=== PATIENT | male | born 1985 | race Caucasian/White ===

== ENCOUNTER 2016-08-24 11:11 | Emergency (ER) | payer SELFPAY ==
--- NOTE | 2016-08-24 11:27 | ER Document Report ---
ED Medical Screen (RME) - General Stated Complaint: LEFT FOOT INJURY Time seen by provider: 11:25 Mode of Arrival: Ambulatory Information source: Patient Notes: 31-year-old male presents to ED for pain in his left foot after he and his maritza were building a porch the board got dropped on his foot yesterday. He states the board got dropped up close to the ankle. Patient is able to walk but has a limp. Refused Tylenol states he had some just before he came to the emergency room. I have greeted and performed a rapid initial assessment of this patient. A comprehensive ED assessment and evaluation of the patient, analysis of test results and completion of medical decision making process will be conducted by an additional ED providers. TRAVEL OUTSIDE OF THE [place] IN LAST 30 DAYS: No - Related Data Allergies/Adverse Reactions: No Known Allergies Allergy (Verified 08/24/16 11:25) Past Medical History Pulmonary Medical History: Reports: Hx Asthma, Hx Bronchitis, Hx COPD Neurological Medical History: Reports: Hx Migraine GI Medical History: Reports: Hx Gastroesophageal Reflux Disease, Hx Hiatal Hernia - hernia Musculoskeltal Medical History: Reports Hx Arthritis - Back, bigg knees Psychiatric Medical History: Reports: Hx Anxiety, Hx Depression Past Surgical History: Reports: Hx Abdominal Surgery - hernia, Hx Herniorrhaphy , Hx Inguinal Hernia - right - Immunizations Immunizations up to date: Yes Hx Diphtheria, Pertussis, Tetanus Vaccination: Yes - 2011 Physical Exam - Vital signs Vitals: Temp Pulse Resp BP Pulse Ox 98.1 F 86 16 133/76 H 99 08/24/16 11:16 08/24/16 11:16 08/24/16 11:16 08/24/16 11:16 08/24/16 11:16 Course - Vital Signs Vital signs: Temp Pulse Resp BP Pulse Ox 98.1 F 86 16 133/76 H 99 08/24/16 11:16 08/24/16 11:16 08/24/16 11:16 08/24/16 11:16 08/24/16 11:16
--- NOTE | 2016-08-24 11:43 | ER Document Report ---
HPI - HPI Patient complains to provider of: left foot pain Onset: Yesterday Onset/Duration: Sudden Quality of pain: Achy, Throbbing Severity: Severe Pain Level: 5 Context: Patient presents to the emergency department with complaints of left foot pain. Patient reports he was helping a friend of the porch yesterday and dropped a board on the foot. He reports since that time it's been hurting. Patient was wearing steel toed boots. Denies past medical history of injury to the foot. No other complaints such as fever vomiting diarrhea. Associated Symptoms: None Exacerbated by: Walking Relieved by: Denies Similar symptoms previously: No Recently seen / treated by doctor: No - REPRODUCTIVE Reproductive: DENIES: : - DERM Skin Color: Normal Past Medical History - General Information source: Patient - Social History Smoking Status: Current Every Day Smoker Cigarette use (# per day): Yes - pack per day Chew tobacco use (# tins/day): No Frequency of alcohol use: Occasional Drug Abuse: None Occupation: [employer] Family History: Reviewed & Not Pertinent Patient has suicidal ideation: No Patient has homicidal ideation: No Pulmonary Medical History: Reports: Hx Asthma, Hx Bronchitis, Hx COPD Neurological Medical History: Reports: Hx Migraine Renal/ Medical History: Denies: Hx Peritoneal Dialysis GI Medical History: Reports: Hx Gastroesophageal Reflux Disease, Hx Hiatal Hernia - hernia Musculoskeltal Medical History: Reports Hx Arthritis - Back, bigg knees Psychiatric Medical History: Reports: Hx Anxiety, Hx Depression Past Surgical History: Reports: Hx Abdominal Surgery - hernia, Hx Herniorrhaphy , Hx Inguinal Hernia - right - Immunizations Immunizations up to date: Yes Hx Diphtheria, Pertussis, Tetanus Vaccination: Yes - 2011 [facility] [employer] [facility] Provider Document - CONSTITUTIONAL Agree With Documented VS: Yes Exam Limitations: No Limitations General Appearance: WD/WN, Mild Distress - Winces when dorsal foot palpated - INFECTION CONTROL TRAVEL OUTSIDE OF THE [place] 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 Patient instructed on Motrin and rest elevate the foot. He was also instructed to follow up with orthopedics for continued pain. He was instructed on signs and symptoms of infection return to ED for concerns. - Vital Signs Vital signs: Temp Pulse Resp BP Pulse Ox 98.1 F 86 16 133/76 H 99 08/24/16 11:16 08/24/16 11:16 08/24/16 11:16 08/24/16 11:16 08/24/16 11:16 - Diagnostic Test Radiology reviewed: Image reviewed, Reports reviewed - IMPRESSION: NEGATIVE STUDY OF THE LEFT FOOT. NO RADIOGRAPHIC EVIDENCE OF ACUTE INJURY. IMPRESSION: NEGATIVE STUDY OF THE LEFT ANKLE. NO RADIOGRAPHIC EVIDENCE OF ACUTE INJURY Discharge - Discharge Clinical Impression: left foot injury, Elevated blood pressure reading Condition: Stable Disposition: HOME, SELF-CARE Instructions: Ice & Elevation ([facility]), Ibuprofen (General) ([facility]) Additional Instructions: *You have been evaluated for left foot injury, elevated blood pressure reading *Rest/Ice/Elevate the foot *Follow up with orthopedics for continued pain-call for an appointment *Take medication as prescribed *Monitor your blood pressure. Your blood pressure was elevated today. This may be because you were anxious, in pain or because you need medication. It is important to follow up with your primary care provider for full evaluation. *Return to ED for worsening condition, changes, needs Prescriptions: Ibuprofen [Motrin 800 mg Tablet] 800 mg PO TID #30 tablet Forms: Elevated Blood Pressure, Return to Work
[2016-08-24 12:33] VITALS: BP 152/89
== END 2016-08-24 12:33 | disposition home or self-care (01) ==
LOC: ER 11:11
DX: S99.922A Unspecified injury of left foot, initial encounter (principal); R03.0 Elevated blood-pressure reading, without diagnosis of hypertension; F17.210 Nicotine dependence, cigarettes, uncomplicated; W20.8XXA Other cause of strike by thrown, projected or falling object, initial encounter; Y93.H3 Activity, building and construction; Y92.008 Other place in unspecified non-institutional (private) residence as the place of occurrence of the external cause
CPT/HCPCS: 99283

== ENCOUNTER 2018-06-25 14:48 | Inpatient (IN) | payer SELFPAY ==
[2018-06-25] MEDS ORDERED: HYDROXYZINE PAMOATE 50 MG CAPSULE PO ONE (15:13)
--- NOTE | 2018-06-25 15:17 | ER Document Report ---
ED Medical Screen (RME) - General Chief Complaint: Seizure Stated Complaint: POSSIBLE SEIZURE Time Seen by Provider: 06/25/18 15:12 Notes: Patient is in police custody, in handcuffs, having been arrested about 130 today. Patient says that he had a seizure just before he was arrested. He says that he has a history of seizures recently, usually when his blood sugar drops too low, but also whenever he stops drinking alcohol. He says his last alcohol was 2 days ago, Thursday morning,. He has been feeling somewhat dizzy and is jittery and twitchy. Complaining of leg cramps bilaterally. Has some nausea yesterday. Unaware of any fevers. Is able to ambulate. Patient extremely twitchy and jittery and anxious, but stays awake throughout the entire interview. TRAVEL OUTSIDE OF THE [place] IN LAST 30 DAYS: No - Related Data Allergies/Adverse Reactions: No Known Allergies Allergy (Verified 06/25/18 14:51) Past Medical History - Social History Frequency of alcohol use: Heavy Pulmonary Medical History: Reports: Hx Asthma, Hx Bronchitis, Hx COPD Neurological Medical History: Reports: Hx Migraine Renal/ Medical History: Denies: Hx Peritoneal Dialysis GI Medical History: Reports: Hx Gastroesophageal Reflux Disease, Hx Hiatal Hernia - hernia Musculoskeltal Medical History: Reports Hx Arthritis - Back, bigg knees Psychiatric Medical History: Reports: Hx Anxiety, Hx Depression Past Surgical History: Reports: Hx Abdominal Surgery - hernia, Hx Herniorrhaphy, Hx Inguinal Hernia - right - Immunizations Immunizations up to date: Yes Hx Diphtheria, Pertussis, Tetanus Vaccination: Yes - 2011 Physical Exam - Vital signs Vitals: Temp Pulse Resp BP Pulse Ox 97.9 F 77 18 132/121 H 92 06/25/18 14:52 06/25/18 14:52 06/25/18 14:52 06/25/18 14:52 06/25/18 14:52 Course - Vital Signs Vital signs: Temp Pulse Resp BP Pulse Ox 97.9 F 77 18 132/121 H 92 06/25/18 14:52 06/25/18 14:52 06/25/18 14:52 06/25/18 14:52 06/25/18 14:52
[2018-06-25] MEDS ORDERED: LORAZEPAM INJ 2 MG/1 ML VIAL IV ONE ×3 (15:29→20:37)
[2018-06-25] MEDS ORDERED: LORAZEPAM INJ 2 MG/1 ML VIAL ONE (15:29)
[2018-06-25 15:49] LABS: ABSOLUTE BASOPHILS # (AUTO) 0.1 10^3/uL (0.0-0.2); ABSOLUTE LYMPHOCYTES (AUTO) 1.4 10^3/uL (0.5-4.7); ABSOLUTE MONOCYTES (AUTO) 1.4 10^3/uL (0.1-1.4); ABSOLUTE NEUT (AUTO) 15.8 10^3/uL (1.7-8.2); BASOPHILS % (AUTO) 0.5 % (0-2); EOSINOPHILS % (AUTO) 0.2 % (0-6); HEMATOCRIT 42.1 % (37.9-51.0); HEMOGLOBIN 14.7 g/dL (13.5-17.0); LYMPHOCYTES % (AUTO) 7.4 % (13-45); MEAN CORPUSCULAR HEMOGLOBIN 31.1 pg (27.0-33.4); MEAN CORPUSCULAR HGB CONC 34.8 g/dL (32.0-36.0); MEAN CORPUSCULAR VOLUME 89 fl (80-97); MONOCYTES % (AUTO) 7.6 % (3-13); PLATELET COUNT 342 10^3/uL (150-450); RED BLOOD COUNT 4.71 10^6/uL (4.35-5.55); RED CELL DISTRIBUTION WIDTH 13.4 % (11.5-14.0); SEGMENTED NEUTROPHILS % (AUTO) 84.3 % (42-78); TOTAL CELLS COUNTED % (AUTO) 100 %; WHITE BLOOD COUNT 18.7 10^3/uL (4.0-10.5)
[2018-06-25 16:05] LABS: ALANINE AMINOTRANSFERASE 80 U/L (21-72); ALBUMIN 5.2 g/dL (3.5-5.0); ALKALINE PHOSPHATASE 85 U/L (38-126); ANION GAP 15 (5-19); ASPARTATE AMINO TRANSFERASE 73 U/L (17-59); BILIRUBIN,DIRECT 0.2 mg/dL (0.0-0.4); BILIRUBIN,TOTAL 1.3 mg/dL (0.2-1.3); BLOOD UREA NITROGEN 14 mg/dL (7-20); CALCIUM 10.9 mg/dL (8.4-10.2); CARBON DIOXIDE 19 mmol/L (22-30); CHLORIDE 93 mmol/L (98-107); GLUCOSE 116 mg/dL (75-110); POTASSIUM 5.1 mmol/L (3.6-5.0); SODIUM 126.9 mmol/L (137-145)
[2018-06-25 16:06] LABS: ACETAMINOPHEN < 10 ug/mL (10-30); ALCOHOL < 10 mg/dL (NONE DETECTED)
[2018-06-25] MEDS ORDERED: NORMAL SALINE 1000 ML 1,000 ML IV ONE (16:26)
--- NOTE | 2018-06-25 16:28 | ER Document Report ---
Addendum entered and electronically signed by TALHA PORTILLO NP 06/26/18 09:07: Discharge - Discharge Clinical Impression: Seizure, Hyponatremia Alcohol withdrawal Qualifiers: Complication of substance-induced condition: with unspecified complication Qualified Code(s): F10.239 - Alcohol dependence with withdrawal, unspecified Condition: Fair Disposition: ADMITTED INPATIENT Original Note: ED Seizure - General TRAVEL OUTSIDE OF THE [place] IN LAST 30 DAYS: No - HPI Patient complains to provider of: History of seizures Quality of pain: Throbbing - left ankle Severity: Moderate Pain Level: 3 Continued on arrival to ED: No Can details of seizure be obtained/verified: Yes Episode witnessed (by whom): Yes - officer at the half-way Current seizure medications: Other - none Preceding symptoms/context: Recent alcohol intake Character of seizure: Partial loss/conscious, Generalized shaking Post-ictal symptoms: Confusion, Speech difficulty Injuries: None Treatment DIRECTOR HOME HEALTH: At[facility] D-stick result: 138 Associated Symptoms: Other - The officer at the half-way stated he was beating his head on the ground during his seizure in the half-way <TALHA PORTILLO - Last Filed: 06/25/18 19:23> <RICH YEPEZ - Last Filed: 06/26/18 04:46> - General Chief Complaint: Seizure Stated Complaint: POSSIBLE SEIZURE Time Seen by Provider: 06/25/18 15:12 Notes: 33-year-old male presented to ED for seizure this afternoon. Patient is now in police To the after being arrested about 1:30 PM. The police at the bedside states that the police in the half-way witnessed a seizures. I spoke with 1 of the offices in the half-way who stated that he saw the patient in full body seizures tremors all over back and his head on the ground and incoherent. He states it was at least 10 minutes before they could get him to do anything on his own. He stated even after this time he still not was not coherent. Patient was seen in pit by Dr. Rollins and was given Ativan IV 1 mg, hydroxyzine p.o. 50 mg and labs and CT were ordered. Patient stated that he has had seizures in the past from low blood sugars. He states he drinks 4-5 or more beer a day and smokes a pack a day. He states he has not had any beer in 2 days. Patient is having tremors at this time and unable to stay still. He is in handcuffs with a commissioned police officer at the bedside. (TALHA PORTILLO) - Related Data Allergies/Adverse Reactions: No Known Allergies Allergy (Verified 06/25/18 14:51) Past Medical History - General Information source: Patient - Social History Smoking Status: Current Every Day Smoker - ppd Cigarette use (# per day): Yes - ppd Chew tobacco use (# tins/day): No Smoking Education Provided: Yes - 4 min Frequency of alcohol use: Heavy - For more beer a day Drug Abuse: None Family History: Reviewed & Not Pertinent Patient has suicidal ideation: No Patient has homicidal ideation: No - Past Medical History Cardiac Medical History: Reports: None Pulmonary Medical History: Reports: Hx Asthma, Hx Bronchitis, Hx COPD EENT Medical History: Reports: None Neurological Medical History: Reports: Hx Migraine Endocrine Medical History: Reports: None Renal/ Medical History: Reports: None Malignancy Medical History: Reports None GI Medical History: Reports: Hx Gastroesophageal Reflux Disease, Hx Hiatal Hernia - hernia Musculoskeletal Medical History: Reports Hx Arthritis - Back, bigg knees, Reports Hx Musculoskeletal Trauma Skin Medical History: Reports None Psychiatric Medical History: Reports: Hx Anxiety, Hx Depression Traumatic Medical History: Reports: None Infectious Medical History: Reports: None Past Surgical History: Reports: Hx Abdominal Surgery - hernia, Hx Herniorrhaphy, Hx Inguinal Hernia - right - Immunizations Immunizations up to date: Yes Hx Diphtheria, Pertussis, Tetanus Vaccination: Yes - 2011 <TALHA PORTILLO - Last Filed: 06/25/18 19:23> Review of Systems - Review of Systems Constitutional: No symptoms reported EENT: Sinus discharge Cardiovascular: No symptoms reported, Heart racing, Dizziness, Lightheaded Respiratory: No symptoms reported Gastrointestinal: No symptoms reported Genitourinary: No symptoms reported Musculoskeletal: Joint pain - Left ankle bruising swelling pain, Joint swelling, Other - Muscle tremors Skin: Other - Bruising and swelling to left ankle Neurological/Psychological: Weakness, Tremor -: Yes All other systems reviewed and negative <TALHA PORTILLO - Last Filed: 06/25/18 19:23> Physical Exam - Vital signs Interpretation: Normal - General General appearance: Appears well, Alert - HEENT Head: Normocephalic, Atraumatic Eyes: Normal Pupils: PERRL - Respiratory Respiratory status: No respiratory distress Chest status: Nontender Breath sounds: Normal Chest palpation: Normal - Cardiovascular Rhythm: Regular Heart sounds: Normal auscultation Murmur: No - Abdominal Inspection: Normal Distension: No distension Bowel sounds: Normal Tenderness: Nontender Organomegaly: No organomegaly - Back Back: Normal, Nontender - Extremities General upper extremity: Normal inspection, Nontender, Normal color, Normal ROM, Normal temperature, Other - tremors General lower extremity: Other - tremors. No: Lowell's sign Ankle: Tender, Ecchymosis, Edema. No: Unable to bear weight - Painful ambulation Foot: Tender, Ecchymosis - Neurological Neuro grossly intact: Yes Cognition: Normal Orientation: AAOx4 [place] Coma Scale Eye Opening: Spontaneous [place] Coma Scale Verbal: Oriented Sharla Coma Scale Motor: Obeys Commands [place] Coma Scale Total: 15 Speech: Normal Cranial nerves: Other - tremors Motor strength normal: LUE, RUE, RLE Additional motor exam normals: Involuntary movements, Other - tremors Sensory: Normal - Psychological Associated symptoms: Normal affect, Normal mood - Skin Skin Temperature: Warm Skin Moisture: Dry Skin Color: Normal <TALHA PORTILLO - Last Filed: 06/25/18 19:23> - Vital signs Vitals: Temp Pulse Resp BP Pulse Ox 97.9 F 77 18 132/121 H 92 06/25/18 14:52 06/25/18 14:52 06/25/18 14:52 06/25/18 14:52 06/25/18 14:52 Course - Laboratory Result Diagrams: 06/25/18 15:20 06/25/18 15:20 <TALHA PORTILLO - Last Filed: 06/25/18 19:23> - Laboratory Result Diagrams: 06/25/18 15:20 06/25/18 15:20 <RICH YEPEZ - Last Filed: 06/26/18 04:46> - Re-evaluation Re-evalutation: 06/25/18 19:[address] Marie earlier concerning the hyponatremia, hypokalemia, alcohol withdrawal tremors and assessment. Dr. Marie recommended normal saline at 125 cc an hour and to medicate the patient with another milligram of Ativan IV. He stated that he would need to be admitted as soon as all the lab results are back . CT is negative, x-ray of the foot is negative. Have discussed patient with Rich Stearns. SHAUN. He will be taking over care of the patient into the urine drug screen is returned. (TALHA PORTILLO) 06/25/18 20:[address] Bradford, patient will be accepted to the IMCU. Patient did become agitated again, started falling out of the bed, I was at bedside and assisted him back into the bed, he was given additional Ativan, thiamine, folic acid. (RICH YEPEZ) - Vital Signs Vital signs: Temp Pulse Resp BP Pulse Ox 97.9 F 77 17 119/80 100 06/25/18 14:52 06/25/18 14:52 06/25/18 23:01 06/25/18 23:01 06/25/18 23:01 - Laboratory Laboratory results interpreted by me: 06/25/18 06/25/18 06/25/18 15:08 15:20 15:20 WBC 18.7 H Seg Neutrophils % 84.3 H Lymphocytes % 7.4 L Absolute Neutrophils 15.8 H Sodium 126.9 L Potassium 5.1 H Chloride 93 L Carbon Dioxide 19 L Glucose 116 H POC Glucose 138 H Calcium 10.9 H AST 73 H ALT 80 H Albumin 5.2 H Urine Ketones Urine Blood Acetaminophen < 10 L 06/25/18 17:50 WBC Seg Neutrophils % Lymphocytes % Absolute Neutrophils Sodium Potassium Chloride Carbon Dioxide Glucose POC Glucose Calcium AST ALT Albumin Urine Ketones TRACE H Urine Blood SMALL H Acetaminophen Discharge <TALHA PORTILLO - Last Filed: 06/25/18 19:23> - Discharge Admitting Provider: Hospitalist Unit Admitted: [facility] <RICH YEPEZ - Last Filed: 06/26/18 04:46> - Discharge Clinical Impression: Seizure, Hyponatremia Alcohol withdrawal Qualifiers: Complication of substance-induced condition: with unspecified complication Qualified Code(s): F10.239 - Alcohol dependence with withdrawal, unspecified Condition: Fair Disposition: ADMITTED INPATIENT
--- NOTE | 2018-06-25 16:44 | RADIOLOGY REPORT (SQ) ---
EXAM DESCRIPTION: CT HEAD WITHOUT COMPLETED DATE/TIME: 06/25/2018 4:36 pm REASON FOR STUDY: ? Seizures COMPARISON: None. TECHNIQUE: Axial images acquired through the brain without intravenous contrast. Images reviewed wi th bone, brain and subdural windows. Images stored on PACS. All CT scanners at this facility use dose modulation, iterative reconstruction, and/or weight based d osing when appropriate to reduce radiation dose to as low as reasonably achievable (ALARA). [facility]: Dose Right [facility]: CareDose [facility]: Dose Right [facility]: Teradose 4D [facility]: ClusterSeven RADIATION DOSE: CT Rad equipment meets quality standard of care and radiation dose reduction techniq ues were employed. CTDIvol: 55.2 mGy. DLP: 1084 mGy-cm. mGy. LIMITATIONS: None. FINDINGS: VENTRICLES: Normal size and contour. CEREBRUM: No masses. No hemorrhage. No midline shift. No evidence for acute infarction. Normal gra y/white matter differentiation. No areas of low density in the white matter. CEREBELLUM: No masses. No hemorrhage. No alteration of density. No evidence for acute infarction. EXTRAAXIAL SPACES: No fluid collections. No masses. ORBITS AND GLOBE: No intra- or extraconal masses. Normal contour of globe without masses. CALVARIUM: No fracture. PARANASAL SINUSES: No fluid or mucosal thickening. SOFT TISSUES: No mass or hematoma. OTHER: No other significant finding. IMPRESSION: NORMAL BRAIN CT WITHOUT CONTRAST. EVIDENCE OF ACUTE STROKE: NO. COMMENT: Quality ID # [id number]: Final reports with documentation of one or more dose reduction techniques (e.g., Automated exposure control, adjustment of the mA and/or kV according to patient size, use of iterative reconstruction technique) TECHNICAL DOCUMENTATION: JOB ID: [id number] [employer]- All Rights Reserved Reading location - IP/workstation name: [email or web address]
--- NOTE | 2018-06-25 17:32 | RADIOLOGY REPORT (SQ) ---
EXAM DESCRIPTION: ANKLE LEFT COMPLETE COMPLETED DATE/TIME: 06/25/2018 5:12 pm REASON FOR STUDY: pain swelling COMPARISON: None. NUMBER OF VIEWS: Three views. TECHNIQUE: AP, lateral, and oblique radiographic images acquired of the left ankle. LIMITATIONS: None. FINDINGS: MINERALIZATION: Normal. BONES: No acute fracture or dislocation. No worrisome bone lesions. JOINTS: No effusions. SOFT TISSUES: No soft tissue swelling. No foreign body. OTHER: No other significant finding. IMPRESSION: NEGATIVE STUDY OF THE LEFT ANKLE. NO RADIOGRAPHIC EVIDENCE OF ACUTE INJURY. TECHNICAL DOCUMENTATION: JOB ID: [id number] [employer]- All Rights Reserved Reading location - IP/workstation name: [email or web address]
[2018-06-25 18:38] LABS: APPEARANCE,URINE CLEAR; BILIRUBIN,URINE NEGATIVE (NEGATIVE); COLOR,URINE YELLOW; GLUCOSE, URINE NEGATIVE (NEGATIVE); KETONES,URINE TRACE mg/dL (NEGATIVE); LEUKOCYTE ESTERASE,URINE NEGATIVE (NEGATIVE); NITRITE,URINE NEGATIVE (NEGATIVE); PROTEIN,URINE NEGATIVE (NEGATIVE); URINE SPECIFIC GRAVITY 1.005; UROBILINOGEN,URINE NEGATIVE mg/dL (<2.0)
[2018-06-25 18:52] LABS: URINE BARBITURATES SCREEN NEGATIVE; URINE BENZODIAZEPINES SCREEN NEGATIVE; URINE COCAINE SCREEN NEGATIVE; URINE MARIJUANA (THC) SCREEN NEGATIVE; URINE METHADONE SCREEN NEGATIVE; URINE PHENCYCLIDINE SCREEN NEGATIVE
[2018-06-25] MEDS ORDERED: THIAMINE HCL 100 MG, FOLIC ACID 1 MG in NORMAL SALINE 250 ML IV ONE (20:37)
[2018-06-25] MEDS ORDERED: THIAMINE HCL INJ 200 MG/2 ML VIAL ONE (21:06)
[2018-06-25] MEDS ORDERED: FOLIC ACID INJ 5 MG/1 ML 10 ML VIAL ONE (21:07)
[2018-06-25] MEDS ORDERED: ONDANSETRON HCL INJ/PF 4 MG/2 ML SDV IV PRN (21:32)
[2018-06-25] MEDS ORDERED: ONDANSETRON 4 MG TAB.RAPDIS PO PRN (21:32)
[2018-06-25] MEDS ORDERED: MAGNESIUM HYDROXIDE SUSP 30 ML UDCUP PO PRN (21:32)
[2018-06-25] MEDS ORDERED: MAG HYDROX/AL HYDROX/SIMETH SUSP 30 ML UDCUP PO PRN (21:32)
[2018-06-25] MEDS ORDERED: ACETAMINOPHEN 325 MG TABLET PO PRN (21:37)
[2018-06-25] MEDS ORDERED: ATENOLOL 50 MG TABLET PO ONE (22:30)
[2018-06-25] MEDS: DIAZEPAM INJ 10 MG/2 ML DISP.SYRIN IV PRN (22:38)
[2018-06-25] MEDS: FAMOTIDINE 20 MG TABLET PO SCH (22:58)
[2018-06-25] MEDS: HEPARIN SOD (PORCINE) 5,000 UNIT/ML 1 ML SYRINGE SUBCUT SCH (23:00)
[2018-06-25] MEDS: DIAZEPAM 5 MG TABLET PO SCH (23:05)
[2018-06-26] MEDS: DIAZEPAM INJ 10 MG/2 ML DISP.SYRIN IV PRN (00:41)
--- NOTE | 2018-06-26 01:27 | PDOC H&P ---
History of Present Illness Admission Date/PCP: 06/25/18 20:52 Patient complains of: Acute alcohol withdrawal with seizure activity History of Present Illness: ANGIE GUTIÉRREZ is a 33 year old male who was arrested and incarcerated at approximately 1:30 PM 06/25/2018 with his last drink being sometime on 06/23/2018. Sometime later in the afternoon he began having, what was described by the [employer]'s deputy, seizure activity (shaking all over and banging his head on the floor) lasting several minutes followed by a postictal state of stupor, confusion and slurred speech lasting for 15-30 minutes. In the emergency room he admits having seizures in the recent past when he stops drinking alcohol for any length of time or when his blood sugar gets too low. He admits feeling shaky and nervous but denies experiencing hallucinations or paresthesias. He did complain of pain in his left ankle which he thinks he injured while he was having his seizure. Initially in the emergency room and at the time of my exam quite sometime later, he was noted to be very tremulous, slightly agitated, fidgety and irritable, therefore he was given several doses of lorazepam IV and hydroxyzine orally by the emergency room physician and he was treated with oral and IV Valium after I assumed care. A noncontrast CT of the head and a multiple view radiographic series of the left ankle were both negative for acute changes. Since patient is in custody of law enforcement he will be admitted for acute alcohol detoxification and control of his acute alcohol withdrawal syndrome with complications of seizures. Past Medical History Cardiac Medical History: Denies: Coronary Artery Disease, Hypertension Pulmonary Medical History: Reports: Asthma, Bronchitis, Chronic Obstructive Pulmonary Disease (COPD) EENT Medical History: Reports: None Neurological Medical History: Reports: Migraine, Seizures - With hypoglycemia and alcohol withdrawal Endocrine Medical History: Denies: Diabetes Mellitus Type 1, Diabetes Mellitus Type 2, Obesity Renal/ Medical History: Denies: Chronic Kidney Disease, Nephrolithiasis Malignancy Medical History: Reports: None GI Medical History: Reports: Gastroesophageal Reflux Disease, Hiatal Hernia - hernia Musculoskeltal Medical History: Reports: Arthritis - Back, bigg knees Denies: Gout Skin Medical History: Denies: Eczema, Psoriasis Psychiatric Medical History: Reports: Alcohol Dependency, Depression, Substance Abuse, Tobacco Dependency Traumatic Medical History: Reports: None Hematology: Denies: Anemia, Bleeding Tendencies Infectious Medical History: Reports: None Past Surgical History Past Surgical History: Reports: Herniorrhaphy - Right inguinal Social History Information Source: Patient Lives with: Alone Smoking Status: Current Every Day Smoker - ppd Frequency of Alcohol Use: Heavy Hx Recreational Drug Use: No Drugs: None Hx Prescription Drug Abuse: No - Advance Directive Resuscitation Status: Full Code Surrogate healthcare decision maker:: Mother Family History Family History: CAD, DM, Hypertension Parental Family History Reviewed: Yes Children Family History Reviewed: No Sibling(s) Family History Reviewed.: Yes Medication/Allergy Home Medications: No Home Medications 06/25/18 Allergies/Adverse Reactions: No Known Allergies Allergy (Verified 06/25/18 14:51) Review of Systems Constitutional: ABSENT: chills, fever(s) Eyes: ABSENT: visual disturbances, other - Ocular pain Ears: ABSENT: hearing changes, other - Ear pain Nose, Mouth, and Throat: ABSENT: mouth pain, sore throat Cardiovascular: ABSENT: chest pain, dyspnea on exertion, orthropnea, palpitations Respiratory: ABSENT: cough, dyspnea Gastrointestinal: PRESENT: nausea - Yesterday. ABSENT: abdominal pain, constipation, diarrhea, vomiting Genitourinary: ABSENT: dysuria, hematuria Musculoskeletal: PRESENT: other - Painful left ankle. ABSENT: deformity Integumentary: ABSENT: pruritus, rash Neurological: PRESENT: as per HPI, confusion, convulsions, dizziness, restless legs, tremor(s) Psychiatric: ABSENT: anxiety, depression, hallucinations Endocrine: ABSENT: cold intolerance, heat intolerance Hematologic/Lymphatic: ABSENT: easy bleeding, easy bruising Physical Exam Vital Signs: Temp Pulse Resp BP Pulse Ox 97.9 F 77 18 115/67 97 06/25/18 14:52 06/25/18 14:52 06/25/18 22:01 06/25/18 22:01 06/25/18 22:01 Intake & Output 06/23/18 06/24/18 06/25/18 23:59 23:59 23:59 Weight 54.8 kg General appearance: PRESENT: no acute distress, cooperative, other - Anxious and fidgety Head exam: PRESENT: atraumatic, normocephalic Eye exam: PRESENT: conjunctiva pink, EOMI. ABSENT: scleral icterus Ear exam: PRESENT: normal external ear exam. ABSENT: bleeding Mouth exam: PRESENT: dry mucosa, neck supple Neck exam: ABSENT: JVD, thyromegaly, tracheal deviation Respiratory exam: PRESENT: clear to auscultation bigg, symmetrical, unlabored Cardiovascular exam: PRESENT: RRR, tachycardia. ABSENT: clicks, gallop, rubs Pulses: PRESENT: normal radial pulses, normal dorsalis pedis pul Vascular exam: PRESENT: normal capillary refill. ABSENT: pallor GI/Abdominal exam: PRESENT: normal bowel sounds, soft Rectal exam: PRESENT: deferred Extremities exam: ABSENT: joint swelling, pedal edema Musculoskeletal exam: ABSENT: deformity, dislocation Neurological exam: PRESENT: alert, oriented to person, oriented to place, oriented to time, oriented to situation, CN II-XII grossly intact. ABSENT: motor sensory deficit Psychiatric exam: PRESENT: agitated, anxious, normal mood Focused psych exam: PRESENT: psychomotor agitation, restlessness Skin exam: PRESENT: dry, intact, warm. ABSENT: jaundice, rash, urticaria Results Laboratory Results: 06/25/18 15:20 06/25/18 15:20 06/25/18 06/25/18 06/25/18 15:20 15:20 17:50 WBC 18.7 H RBC 4.71 Hgb 14.7 Hct 42.1 MCV 89 MCH 31.1 MCHC 34.8 RDW 13.4 Plt Count 342 Seg Neutrophils % 84.3 H Lymphocytes % 7.4 L Monocytes % 7.6 Eosinophils % 0.2 Basophils % 0.5 Absolute Neutrophils 15.8 H Absolute Lymphocytes 1.4 Absolute Monocytes 1.4 Absolute Eosinophils 0.0 Absolute Basophils 0.1 Sodium 126.9 L Potassium 5.1 H Chloride 93 L Carbon Dioxide 19 L Anion Gap 15 BUN 14 Creatinine 0.88 Est GFR ( Amer) > 60 Est GFR (Non-Af Amer) > 60 Glucose 116 H Calcium 10.9 H Total Bilirubin 1.3 AST 73 H ALT 80 H Alkaline Phosphatase 85 Total Protein 8.0 Albumin 5.2 H Urine Color YELLOW Urine Appearance CLEAR Urine pH 6.0 Ur Specific [place] 1.005 Urine Protein NEGATIVE Urine Glucose (UA) NEGATIVE Urine Ketones TRACE H Urine Blood SMALL H Urine Nitrite NEGATIVE Ur Leukocyte Esterase NEGATIVE Urine WBC (Auto) 0 Urine RBC (Auto) 0 Impressions: Head CT 06/25/18 15:14 IMPRESSION: NORMAL BRAIN CT WITHOUT CONTRAST. EVIDENCE OF ACUTE STROKE: NO. Ankle X-Ray 06/25/18 16:37 IMPRESSION: NEGATIVE STUDY OF THE LEFT ANKLE. NO RADIOGRAPHIC EVIDENCE OF ACUTE INJURY. Assessment & Plan - Diagnosis (1) Alcohol withdrawal syndrome with complication Is this a current diagnosis for this admission?: Yes Plan: Patient has had a seizure witnessed by law enforcement officers prior to coming to the emergency room. He further admits a history of delirium tremens type symptoms with alcohol withdrawal in the past. He will therefore be initiated on a Valium regiment utilizing 10 mg Valium p.o. every 4 hours with Valium 10 mg IV every hour as needed severe agitation or seizure activity. (2) Hyperkalemia Is this a current diagnosis for this admission?: Yes Plan: Mild hyperkalemia is noted and will be observed on serial evaluations of the patient's metabolic profile. (3) Leukocytosis Qualifiers: Leukocytosis type: unspecified Qualified Code(s): D72.829 - Elevated white blood cell count, unspecified Is this a current diagnosis for this admission?: Yes Plan: Leukocytosis is noted in a postictal patient this will be observed with serial CBC evaluations. (4) Metabolic acidosis Is this a current diagnosis for this admission?: Yes Plan: Patient started to have metabolic acidosis which is consistent with his postictal and alcohol withdrawal state this will be observed with serial determinations of the patient's metabolic profile. (5) Hyponatremia Is this a current diagnosis for this admission?: Yes Plan: Patient is noted to be mildly hyponatremic this is most likely related to his metabolic acidosis and acute alcohol withdrawal state. This will be observed on an ongoing basis utilizing serial metabolic profile determinations. - Time Time Spent: 30 to 50 Minutes Critical Time spent with patient: Less than 15 minutes Smoking Cessation Education: 3 to 10 minutes Medications reviewed and adjusted accordingly: Yes Anticipated discharge: Home - Inpatient Certification Based on my medical assessment, after consideration of the patient's comorbidities, presenting symptoms, or acuity I expect that the services needed warrant INPATIENT care.: Yes I certify that my determination is in accordance with my understanding of Medicare's requirements for reasonable and necessary INPATIENT services [42 CFR 412.3e].: Yes Medical Necessity: Need Close Monitoring Due to Risk of Patient Decompensation, Need for Neurological Checks, Risk of Complication if Not Cared For in Hospital
[2018-06-26] MEDS: DIAZEPAM 5 MG TABLET PO SCH ×6 (02:49→22:42)
[2018-06-26] MEDS: HEPARIN SOD (PORCINE) 5,000 UNIT/ML 1 ML SYRINGE SUBCUT SCH ×3 (05:44→22:48)
[2018-06-26 07:08] LABS: HEMATOCRIT 39.6 % (37.9-51.0); HEMOGLOBIN 13.7 g/dL (13.5-17.0); MEAN CORPUSCULAR HEMOGLOBIN 31.5 pg (27.0-33.4); MEAN CORPUSCULAR HGB CONC 34.6 g/dL (32.0-36.0); MEAN CORPUSCULAR VOLUME 91 fl (80-97); PLATELET COUNT 295 10^3/uL (150-450); RED BLOOD COUNT 4.35 10^6/uL (4.35-5.55); RED CELL DISTRIBUTION WIDTH 13.8 % (11.5-14.0); WHITE BLOOD COUNT 7.6 10^3/uL (4.0-10.5)
[2018-06-26 07:38] LABS: ALANINE AMINOTRANSFERASE 72 U/L (21-72); ALBUMIN 3.9 g/dL (3.5-5.0); ALKALINE PHOSPHATASE 68 U/L (38-126); ANION GAP 9 (5-19); ASPARTATE AMINO TRANSFERASE 106 U/L (17-59); BILIRUBIN,DIRECT 0.3 mg/dL (0.0-0.4); BILIRUBIN,TOTAL 0.8 mg/dL (0.2-1.3); BLOOD UREA NITROGEN 12 mg/dL (7-20); CALCIUM 9.3 mg/dL (8.4-10.2); CARBON DIOXIDE 23 mmol/L (22-30); CHLORIDE 106 mmol/L (98-107); GLUCOSE 67 mg/dL (75-110); SODIUM 137.5 mmol/L (137-145); TOTAL PROTEIN 6.5 g/dL (6.3-8.2)
[2018-06-26 07:53] LABS: FREE T3 3.83 pg/mL (2.77-5.27); FREE T4 (FREE THYROXINE) 1.05 ng/dL (0.78-2.19)
[2018-06-26] MEDS ORDERED: DIAZEPAM INJ 10 MG/2 ML DISP.SYRIN IV PRN ×2 (08:01→16:09)
[2018-06-26 08:06] LABS: THYROID STIMULATING HORMONE 9.1 uIU/mL (0.47-4.68)
--- NOTE | 2018-06-26 08:13 | PDOC PROGRESS REPORT ---
Subjective Progress Note for:: 06/26/18 Subjective:: 06/26/[id number]-old with history of alcohol abuse admitted from the correction with a seizure activity. Admission alcohol level is less than 10 seizures was witnessed by the police officers and in the ER he was given several doses of IV lorazepam and hydroxyzine ,after he came to up to the floor no acute events. Afebrile. Patient able to communicate well with me. Reason For Visit: ALCOHOL WITHDRAWAL SYNDROME Physical Exam Vital Signs: Temp Pulse Resp BP Pulse Ox 97.4 F 90 20 104/59 L 100 06/26/18 02:57 06/26/18 02:57 06/26/18 02:57 06/26/18 02:57 06/26/18 02:57 Intake & Output 06/25/18 06/26/18 06/27/18 06:59 06:59 06:59 Intake Total 1251 Output Total 1000 Balance 251 Weight 57.6 kg General appearance: PRESENT: no acute distress Head exam: PRESENT: atraumatic Eye exam: PRESENT: PERRLA Mouth exam: PRESENT: moist Neck exam: ABSENT: carotid bruit, JVD, lymphadenopathy, thyromegaly Respiratory exam: PRESENT: clear to auscultation bigg. ABSENT: rales, rhonchi, w heezes Cardiovascular exam: PRESENT: RRR. ABSENT: diastolic murmur, rubs, systolic murmur Pulses: PRESENT: normal dorsalis pedis pul GI/Abdominal exam: PRESENT: normal bowel sounds, soft. ABSENT: distended, guarding, mass, organolmegaly, rebound, tenderness Neurological exam: PRESENT: alert, awake, oriented to person, oriented to place, oriented to time, oriented to situation, CN II-XII grossly intact. ABSENT: motor sensory deficit Psychiatric exam: PRESENT: appropriate affect, normal mood. ABSENT: homicidal ideation, suicidal ideation Results Laboratory Results: 06/26/18 06:12 06/26/18 06:12 06/25/18 06/25/18 06/25/18 15:20 15:20 17:50 WBC 18.7 H RBC 4.71 Hgb 14.7 Hct 42.1 MCV 89 MCH 31.1 MCHC 34.8 RDW 13.4 Plt Count 342 Seg Neutrophils % 84.3 H Lymphocytes % 7.4 L Monocytes % 7.6 Eosinophils % 0.2 Basophils % 0.5 Absolute Neutrophils 15.8 H Absolute Lymphocytes 1.4 Absolute Monocytes 1.4 Absolute Eosinophils 0.0 Absolute Basophils 0.1 Sodium 126.9 L Potassium 5.1 H Chloride 93 L Carbon Dioxide 19 L Anion Gap 15 BUN 14 Creatinine 0.88 Est GFR ( Amer) > 60 Est GFR (Non-Af Amer) > 60 Glucose 116 H Calcium 10.9 H Magnesium Total Bilirubin 1.3 AST 73 H ALT 80 H Alkaline Phosphatase 85 Total Protein 8.0 Albumin 5.2 H Urine Color YELLOW Urine Appearance CLEAR Urine pH 6.0 Ur Specific [place] 1.005 Urine Protein NEGATIVE Urine Glucose (UA) NEGATIVE Urine Ketones TRACE H Urine Blood SMALL H Urine Nitrite NEGATIVE Ur Leukocyte Esterase NEGATIVE Urine WBC (Auto) 0 Urine RBC (Auto) 0 06/26/18 06/26/18 06:12 06:12 WBC 7.6 RBC 4.35 Hgb 13.7 Hct 39.6 MCV 91 MCH 31.5 MCHC 34.6 RDW 13.8 Plt Count 295 Seg Neutrophils % Lymphocytes % Monocytes % Eosinophils % Basophils % Absolute Neutrophils Absolute Lymphocytes Absolute Monocytes Absolute Eosinophils Absolute Basophils Sodium 137.5 Potassium 4.0 D Chloride 106 Carbon Dioxide 23 Anion Gap 9 BUN 12 Creatinine 0.87 Est GFR ( Amer) > 60 Est GFR (Non-Af Amer) > 60 Glucose 67 L Calcium 9.3 Magnesium 2.3 Total Bilirubin 0.8 AST 106 H ALT 72 Alkaline Phosphatase 68 Total Protein 6.5 Albumin 3.9 Urine Color Urine Appearance Urine pH Ur Specific [place] Urine Protein Urine Glucose (UA) Urine Ketones Urine Blood Urine Nitrite Ur Leukocyte Esterase Urine WBC (Auto) Urine RBC (Auto) Impressions: Head CT 06/25/18 15:14 IMPRESSION: NORMAL BRAIN CT WITHOUT CONTRAST. EVIDENCE OF ACUTE STROKE: NO. Ankle X-Ray 06/25/18 16:37 IMPRESSION: NEGATIVE STUDY OF THE LEFT ANKLE. NO RADIOGRAPHIC EVIDENCE OF ACUTE INJURY. Assessment & Plan - Diagnosis (1) Alcohol withdrawal Qualifiers: Complication of substance-induced condition: with unspecified complication Qualified Code(s): F10.239 - Alcohol dependence with withdrawal, unspecified Is this a current diagnosis for this admission?: Yes Plan: Patient has had a seizure witnessed by law enforcement officers prior to coming to the emergency room. He further admits a history of delirium tremens type symptoms with alcohol withdrawal in the past. He will therefore be initiated on a Valium regiment utilizing 10 mg Valium p.o. every 4 hours with Valium 10 mg IV every hour as needed severe agitation or seizure activity. 06/26/2018-no seizure activity after the patient came to the telemetry floor. He is on IV fluids, IV diazepam 10 mg every hour IV and diazepam 10 mg every 4 hours p.o. I decreased the dose of IV diazepam to 5 mg every 2 as needed. Going to continue to watch for the seizure activity. Going to watch for DTs. (2) Hyperkalemia Is this a current diagnosis for this admission?: Yes Plan: Mild hyperkalemia is noted and will be observed on serial evaluations of the patient's metabolic profile. 06/26/2018-potassium level is 5.1 on admission today's labs are pending. I stop his IV potassium supplementation. To do the labs on daily basis. Repeat potassium came back to just a minute ago it was 4.0. Hyperkalemia is resolved. (3) Hyponatremia Is this a current diagnosis for this admission?: Yes Plan: Patient is noted to be mildly hyponatremic this is most likely related to his metabolic acidosis and acute alcohol withdrawal state. This will be observed on an ongoing basis utilizing serial metabolic profile determinations. 06/26/2018 at the time of admission serum sodium level is 127. May be secondary to metabolic acidosis and acute alcohol withdrawal state. Today's sodium level is 137. Hyponatremia resolved. (4) Leukocytosis Qualifiers: Leukocytosis type: unspecified Qualified Code(s): D72.829 - Elevated white blood cell count, unspecified Is this a current diagnosis for this admission?: Yes Plan: Leukocytosis is noted in a postictal patient this will be observed with serial CBC evaluations. 06/26/2018 patient's elevated WBC at the time of admission it was normal today. WBC is today 7.6. (5) Metabolic acidosis Is this a current diagnosis for this admission?: Yes Plan: Patient started to have metabolic acidosis which is consistent with his postictal and alcohol withdrawal state this will be observed with serial determinations of the patient's metabolic profile. 06/26/2018 patient has metabolic acidosis probably postictal and alcohol withdrawal state bicarb was improved to 23 today. (6) Seizure Is this a current diagnosis for this admission?: Yes Plan: 06/26/2018 patient has alcohol withdrawal seizures. And he he was given Valium and hydroxyzine in the ER. And no more seizure activity. Probably is related to alcohol withdrawal. - Time Time Spent with patient: 15-24 minutes Smoking Cessation Education: 3 to 10 minutes Medications reviewed and adjusted accordingly: Yes
[2018-06-26] MEDS: FAMOTIDINE 20 MG TABLET PO SCH ×2 (09:17→22:42)
[2018-06-26] MEDS: NICOTINE 14 MG/24 HR PATCH.TD24 TD PRN (09:18)
[2018-06-26] MEDS: FOLIC ACID 1 MG TABLET PO SCH (09:24)
[2018-06-26] MEDS: DOCUSATE SODIUM 100 MG/10 ML UDC PO SCH ×2 (09:24→17:07)
[2018-06-26] MEDS: THIAMINE HCL 100 MG TABLET PO SCH (09:24)
[2018-06-26] MEDS ORDERED: ATENOLOL 50 MG TABLET PO SCH (10:00)
--- NOTE | 2018-06-26 12:58 | EKG REPORT ---
SEVERITY:- ABNORMAL ECG - SINUS TACHYCARDIA BORDERLINE INFERIOR Q WAVES BORDERLINE R WAVE PROGRESSION, ANTERIOR LEADS PROLONGED QT INTERVAL : Confirmed by: Linus Malin 26-Jun-2018 12:58:01
[2018-06-26] MEDS: NORMAL SALINE 1000 ML 1,000 ML IV PRN (17:07)
[2018-06-26] MEDS ORDERED: NORMAL SALINE 1000 ML 1,000 ML with POTASSIUM CHLORIDE 20 MEQ, MAGNESIUM SULFATE 8 MEQ,... IV SCH ×5 (18:00)
[2018-06-27] MEDS: DIAZEPAM 5 MG TABLET PO SCH ×6 (03:21→21:15)
[2018-06-27 04:46] LABS: HEMATOCRIT 35.8 % (37.9-51.0); HEMOGLOBIN 12.2 g/dL (13.5-17.0); MEAN CORPUSCULAR HEMOGLOBIN 31.3 pg (27.0-33.4); MEAN CORPUSCULAR VOLUME 92 fl (80-97); PLATELET COUNT 235 10^3/uL (150-450); RED BLOOD COUNT 3.89 10^6/uL (4.35-5.55); RED CELL DISTRIBUTION WIDTH 13.5 % (11.5-14.0); WHITE BLOOD COUNT 7.6 10^3/uL (4.0-10.5)
[2018-06-27 05:03] LABS: ALANINE AMINOTRANSFERASE 56 U/L (21-72); ALBUMIN 3.2 g/dL (3.5-5.0); ALKALINE PHOSPHATASE 61 U/L (38-126); ANION GAP 6 (5-19); ASPARTATE AMINO TRANSFERASE 73 U/L (17-59); BILIRUBIN,DIRECT 0.2 mg/dL (0.0-0.4); BILIRUBIN,TOTAL 0.2 mg/dL (0.2-1.3); BLOOD UREA NITROGEN 14 mg/dL (7-20); CARBON DIOXIDE 22 mmol/L (22-30); CHLORIDE 108 mmol/L (98-107); GLUCOSE 83 mg/dL (75-110); POTASSIUM 3.8 mmol/L (3.6-5.0); SODIUM 135.7 mmol/L (137-145); TOTAL PROTEIN 5.4 g/dL (6.3-8.2)
[2018-06-27] MEDS: HEPARIN SOD (PORCINE) 5,000 UNIT/ML 1 ML SYRINGE SUBCUT SCH ×3 (06:41→21:15)
[2018-06-27] MEDS: NORMAL SALINE 1000 ML 1,000 ML IV PRN ×3 (06:43→23:13)
--- NOTE | 2018-06-27 07:51 | PDOC PROGRESS REPORT ---
Subjective Progress Note for:: 06/27/18 Subjective:: 06/26/[id number]-mzoy-old with history of alcohol abuse admitted from the alf with a seizure activity. Admission alcohol level is less than 10 seizures was witnessed by the police officers and in the ER he was given several doses of IV lorazepam and hydroxyzine ,after he came to up to the floor no acute events. Afebrile. Patient able to communicate well with me. 06/27/2000 [id number] male admitted for alcohol abuse and alcohol withdrawal seizures associated with alcohol withdrawal. No seizure activity in the last 24 hours. No acute events in the last 24 hours. Patient is complaining of left hip pain pain scale of 3-4 x 10 and on examination no evidence of any increasing pain. I am going to put him on Tylenol 650 every 4 as needed for pain. His b lood pressure is still running low 99/44 I stopped his metoprolol because he is also became bradycardic last night. Pt is on normal saline at 100 cc/h. Reason For Visit: ALCOHOL WITHDRAWAL SYNDROME Physical Exam Vital Signs: Temp Pulse Resp BP Pulse Ox 97.3 F 57 L 16 94/44 L 99 06/27/18 03:20 06/27/18 07:00 06/27/18 03:20 06/27/18 03:20 06/27/18 03:20 Intake & Output 06/26/18 06/27/18 06/28/18 06:59 06:59 06:59 Intake Total 1251 2006 Output Total 1000 1200 Balance 251 806 Weight 57.6 kg 58.2 kg General appearance: PRESENT: no acute distress Head exam: PRESENT: atraumatic Eye exam: PRESENT: PERRLA Mouth exam: PRESENT: moist Neck exam: ABSENT: carotid bruit, JVD, lymphadenopathy, thyromegaly Respiratory exam: PRESENT: clear to auscultation bigg. ABSENT: rales, rhonchi, wheezes Cardiovascular exam: PRESENT: RRR. ABSENT: diastolic murmur, rubs, systolic murmur GI/Abdominal exam: PRESENT: normal bowel sounds, soft. ABSENT: distended, guarding, mass, organolmegaly, rebound, tenderness Neurological exam: PRESENT: alert, awake, oriented to person, oriented to place, oriented to time, oriented to situation, CN II-XII grossly intact. ABSENT: motor sensory deficit Psychiatric exam: PRESENT: appropriate affect, normal mood. ABSENT: homicidal ideation, suicidal ideation Results Laboratory Results: 06/27/18 03:51 06/27/18 03:51 06/26/18 06/26/18 06/27/18 06:12 06:12 03:51 WBC 7.6 RBC 3.89 L Hgb 12.2 L Hct 35.8 L MCV 92 MCH 31.3 MCHC 34.0 RDW 13.5 Plt Count 235 Sodium 137.5 Potassium 4.0 D Chloride 106 Carbon Dioxide 23 Anion Gap 9 BUN 12 Creatinine 0.87 Est GFR ( Amer) > 60 Est GFR (Non-Af Amer) > 60 Glucose 67 L Calcium 9.3 Magnesium 2.3 Total Bilirubin 0.8 AST 106 H ALT 72 Alkaline Phosphatase 68 Total Protein 6.5 Albumin 3.9 TSH 9.10 H Free T4 1.05 Free T3 pg/mL 3.83 06/27/18 06/27/18 03:51 03:51 WBC RBC Hgb Hct MCV MCH MCHC RDW Plt Count Sodium 135.7 L Potassium 3.8 Chloride 108 H Carbon Dioxide 22 Anion Gap 6 BUN 14 Creatinine 0.92 Est GFR ( Amer) > 60 Est GFR (Non-Af Amer) > 60 Glucose 83 Calcium 9.0 Magnesium 2.1 Total Bilirubin 0.2 AST 73 H ALT 56 Alkaline Phosphatase 61 Total Protein 5.4 L Albumin 3.2 L TSH Free T4 Free T3 pg/mL Impressions: Head CT 06/25/18 15:14 IMPRESSION: NORMAL BRAIN CT WITHOUT CONTRAST. EVIDENCE OF ACUTE STROKE: NO. Ankle X-Ray 06/25/18 16:37 IMPRESSION: NEGATIVE STUDY OF THE LEFT ANKLE. NO RADIOGRAPHIC EVIDENCE OF ACUTE INJURY. Assessment & Plan - Diagnosis (1) Alcohol withdrawal Qualifiers: Complication of substance-induced condition: with unspecified complication Qualified Code(s): F10.239 - Alcohol dependence with withdrawal, unspecified Is this a current diagnosis for this admission?: Yes Plan: Patient has had a seizure witnessed by law enforcement officers prior to coming to the emergency room. He further admits a history of delirium tremens type symptoms with alcohol withdrawal in the past. He will therefore be initiated on a Valium regiment utilizing 10 mg Valium p.o. every 4 hours with Valium 10 mg IV every hour as needed severe agitation or seizure activity. 06/26/2018-no seizure activity after the patient came to the telemetry floor. He is on IV fluids, IV diazepam 10 mg every hour IV and diazepam 10 mg every 4 hours p.o. I decreased the dose of IV diazepam to 5 mg every 2 as needed. Going to continue to watch for the seizure activity. Going to watch for DTs. 06/27/2018-plan is to continue IV fluids at 100 cc/h. He is on diazepam 5 mg IV every 4 as needed for agitation is also on a diazepam 5 mg p.o. every 4 as needed plan is to continue the present management I placed the order for lipase level tomorrow. Aspiration ,fall, seizure precautions were in place. (2) Hyperkalemia Is this a current diagnosis for this admission?: Yes Plan: Mild hyperkalemia is noted and will be observed on serial evaluations of the patient's metabolic profile. 06/26/2018-potassium level is 5.1 on admission today's labs are pending. I stop his IV potassium supplementation. To do the labs on daily basis. Repeat potassium came back to just a minute ago it was 4.0. Hyperkalemia is resolved. 06/27/2018 potassium is 3.8 today, hyperkalemia was resolved. (3) Hyponatremia Is this a current diagnosis for this admission?: Yes Plan: Patient is noted to be mildly hyponatremic this is most likely related to his metabolic acidosis and acute alcohol withdrawal state. This will be observed on an ongoing basis utilizing serial metabolic profile determinations. 06/26/2018 at the time of admission serum sodium level is 127. May be secondary to metabolic acidosis and acute alcohol withdrawal state. Today's sodium level is 137. Hyponatremia resolved. 06/27/2018 admission serum sodium level is 127 today it is 135. Hyponatremia is resolved. (4) Leukocytosis Qualifiers: Leukocytosis type: unspecified Qualified Code(s): D72.829 - Elevated white blood cell count, unspecified Is this a current diagnosis for this admission?: Yes Plan: Leukocytosis is noted in a post ictal patient this will be observed with serial CBC evaluations. 06/26/2018 patient's elevated WBC at the time of admission it was normal today. WBC is today 7.6. 06/27/2018 latest WBC 7.6. Leukocytosis may be secondary to alcohol withdrawal and seizure activity which was resolved. (5) Metabolic acidosis Is this a current diagnosis for this admission?: Yes Plan: Patient started to have metabolic acidosis which is consistent with his postictal and alcohol withdrawal state this will be observed with serial determinations of the patient's metabolic profile. 06/26/2018 patient has metabolic acidosis probably postictal and alcohol withdrawal state bicarb was improved to 23 today. 06/27/2018 initially came in with metabolic acidosis probably post ictal and it was 22 today metabolic acidosis is resolved. (6) Seizure Is this a current diagnosis for this admission?: Yes (7) Hypotension Is this a current diagnosis for this admission?: Yes Plan: 06/27/2018 patient blood pressure is 94/44. He is getting normal saline 100 cc/h. He is bradycardic also. I stopped metoprolol for now, patient is asymptomatic. (8) Left hip pain Is this a current diagnosis for this admission?: Yes Plan: 06/27/2018 patient is complaining of left hip pain pain scale is 3-4 x 10 on examination the left hip joint movements are normal no complaints of pain on flexion abduction ,abduction ,extension. Patient was started on Tylenol 650 mg every 4 as needed for pain. - Time Time Spent with patient: 15-24 minutes Smoking Cessation Education: 3 to 10 minutes Medications reviewed and adjusted accordingly: Yes Anticipated discharge: Other - alf
[2018-06-27] MEDS: THIAMINE HCL 100 MG TABLET PO SCH (09:36)
[2018-06-27] MEDS: FAMOTIDINE 20 MG TABLET PO SCH ×2 (09:36→21:15)
[2018-06-27] MEDS: FOLIC ACID 1 MG TABLET PO SCH (09:36)
[2018-06-27] MEDS: DOCUSATE SODIUM 100 MG/10 ML UDC PO SCH ×2 (10:02→17:20)
[2018-06-28] MEDS: DIAZEPAM 5 MG TABLET PO SCH ×2 (01:47→05:10)
[2018-06-28] MEDS: HEPARIN SOD (PORCINE) 5,000 UNIT/ML 1 ML SYRINGE SUBCUT SCH (05:11)
[2018-06-28 06:02] LABS: HEMATOCRIT 35.4 % (37.9-51.0); HEMOGLOBIN 12.1 g/dL (13.5-17.0); MEAN CORPUSCULAR HEMOGLOBIN 31.3 pg (27.0-33.4); MEAN CORPUSCULAR VOLUME 92 fl (80-97); PLATELET COUNT 260 10^3/uL (150-450); RED BLOOD COUNT 3.85 10^6/uL (4.35-5.55); RED CELL DISTRIBUTION WIDTH 13.6 % (11.5-14.0); WHITE BLOOD COUNT 7.1 10^3/uL (4.0-10.5)
[2018-06-28 06:36] LABS: ALANINE AMINOTRANSFERASE 49 U/L (21-72); ALBUMIN 3.1 g/dL (3.5-5.0); ALKALINE PHOSPHATASE 52 U/L (38-126); ANION GAP 6 (5-19); ASPARTATE AMINO TRANSFERASE 56 U/L (17-59); BILIRUBIN,DIRECT 0.2 mg/dL (0.0-0.4); BILIRUBIN,TOTAL 0.2 mg/dL (0.2-1.3); BLOOD UREA NITROGEN 9 mg/dL (7-20); CALCIUM 8.9 mg/dL (8.4-10.2); CARBON DIOXIDE 26 mmol/L (22-30); CHLORIDE 108 mmol/L (98-107); GLUCOSE 83 mg/dL (75-110); LIPASE 134.1 U/L (23-300); POTASSIUM 4.5 mmol/L (3.6-5.0); SODIUM 139.7 mmol/L (137-145); TOTAL PROTEIN 5.5 g/dL (6.3-8.2)
[2018-06-28 08:08] VITALS: BP 116/70
[2018-06-28] MEDS ORDERED: DIAZEPAM 2 MG TABLET PO PRN (08:09)
[2018-06-28] MEDS: NICOTINE 14 MG/24 HR PATCH.TD24 TD PRN (08:41)
--- NOTE | 2018-06-28 13:58 | PDOC DISCHARGE SUMMARY ---
General - Admit/Disc Date/PCP Admission Date/Primary Care Provider: 06/25/18 20:52 Discharge Date: 06/28/18 - Discharge Diagnosis (1) Alcohol withdrawal Is this a current diagnosis for this admission?: Yes Summary: Patient has had a seizure witnessed by law enforcement officers prior to coming to the emergency room. He further admits a history of delirium tremens type symptoms with alcohol withdrawal in the past. He will therefore be initiated on a Valium regiment utilizing 10 mg Valium p.o. every 4 hours with Valium 10 mg IV every hour as needed severe agitation or seizure activity. 06/26/2018-no seizure activity after the patient came to the telemetry floor. He is on IV fluids, IV diazepam 10 mg every hour IV and diazepam 10 mg every 4 hours p.o. I decreased the dose of IV diazepam to 5 mg every 2 as needed. Going to continue to watch for the seizure activity. Going to watch for DTs. 06/27/2018-plan is to continue IV fluids at 100 cc/h. He is on diazepam 5 mg IV every 4 as needed for agitation is also on a diazepam 5 mg p.o. every 4 as needed plan is to continue the present management I placed the order for lipase level tomorrow. Aspiration ,fall, seizure precautions were in place. 06/28/2018-this 33-year-old male was brought to the emergency room from [facility] with complaints of seizure activity secondary to alcohol withdrawal. He has a prior history of delirium tremens secondary to alcohol withdrawal. He was started on Valium and hydroxyzine in the emergency room for seizure activity and severe agitation he was placed in telemetry started on IV fluids along with IV diazepam and IV pain medications no complications during the hospital stay no alcohol withdrawal symptoms during the hospital stay no seizure activity was noted. This morning patient was alert and oriented communicating well no complaints at all. Cut down of the alcohol intake and attending AA classes With the patient. Verbalized his response. (2) Hyperkalemia Is this a current diagnosis for this admission?: Yes Summary: Mild hyperkalemia is noted and will be observed on serial evaluations of the patient's metabolic profile. 06/26/2018-potassium level is 5.1 on admission today's labs are pending. I stop his IV potassium supplementation. To do the labs on daily basis. Repeat potassium came back to just a minute ago it was 4.0. Hyperkalemia is resolved. 06/27/2018 potassium is 3.8 today, hyperkalemia was resolved. 06/28/2018-today's potassium is 4.5. Hyperkalemia was resolved. (3) Hyponatremia Is this a current diagnosis for this admission?: Yes Summary: Patient is noted to be mildly hyponatremic this is most likely related to his metabolic acidosis and acute alcohol withdrawal state. This will be observed on an ongoing basis utilizing serial metabolic profile determinations. 06/26/2018 at the time of admission serum sodium level is 127. May be secondary to metabolic acidosis and acute alcohol withdrawal state. Today's sodium level is 137. Hyponatremia resolved. 06/27/2018 admission serum sodium level is 127 today it is 135. Hyponatremia is resolved. 06/28/2018-latest sodium level is 139. At the time of admission serum sodium is 127 hyponatremia is resolved no complications during the hospital stay. No change in mental status no seizure activity. (4) Leukocytosis Is this a current diagnosis for this admission?: Yes Summary: Leukocytosis is noted in a post ictal patient this will be observed with serial CBC evaluations. 06/26/2018 patient's elevated WBC at the time of admission it was normal today. WBC is today 7.6. 06/27/2018 latest WBC 7.6. Leukocytosis may be secondary to alcohol withdrawal and seizure activity which was resolved. 06/28/2018-device cell count is 7.1 today on admission it was elevated leukocytosis was resolved. Probably elevated WBC count is initially secondary to postictal state. (5) Metabolic acidosis Is this a current diagnosis for this admission?: Yes Summary: Patient started to have metabolic acidosis which is consistent with his postictal and alcohol withdrawal state this will be observed with serial determinations of the patient's metabolic profile. 06/26/2018 patient has metabolic acidosis probably postictal and alcohol withdrawal state bicarb was improved to 23 today. 06/27/2018 initially came in with metabolic acidosis probably post ictal and it was 22 today metabolic acidosis is resolved. 06/28/2018 patient has metabolic acidosis at the time of admission possibly postictal his bicarb is 26 today metabolic acidosis was resolved. (6) Seizure Is this a current diagnosis for this admission?: Yes Summary: 06/28/2018 patient was admitted with seizures secondary to alcohol withdrawal no seizure activity after admission patient was stable and he can go back to the [facility] today. (7) Hypotension Is this a current diagnosis for this admission?: Yes Summary: 06/27/2018 patient blood pressure is 94/44. He is getting normal saline 100 cc/h. He is bradycardic also. I stopped metoprolol for now, patient is asymptomatic. 06/28/2018 patient's blood pressure today is 103/61 pulse rate is 77 vital signs are stable.he received IV fluids until yesterday he is not any on antihypertensives. (8) Left hip pain Is this a current diagnosis for this admission?: Yes - Additional Information Resuscitation Status: Full Code Discharge Diet: As Tolerated Discharge Activity: Activity As Tolerated Prescriptions: Diazepam [Valium 2 mg Tablet] 2 mg PO Q6HP PRN #20 tablet PRN Reason: Famotidine [Pepcid 20 mg Tablet] 20 mg PO Q12 #30 tablet Folic Acid [Folvite 1 mg Tablet] 1 mg PO DAILY #30 tablet Thiamine HCl [Thiamine 100 mg Tablet] 100 mg PO DAILY #30 tablet Home Medications: Diazepam [Valium 2 mg Tablet] 2 mg PO Q6HP PRN #20 tablet 06/28/18 Famotidine [Pepcid 20 mg Tablet] 20 mg PO Q12 #30 tablet 06/28/18 Folic Acid [Folvite 1 mg Tablet] 1 mg PO DAILY #30 tablet 06/28/18 Thiamine HCl [Thiamine 100 mg Tablet] 100 mg PO DAILY #30 tablet 06/28/18 History of Present Illness History of Present Illness: ANGIE GUTIÉRREZ is a 33 year old male with history of alcohol abuse admitted from the [facility] with a seizure activity. Admission alcohol level is less than 10 seizures was witnessed by the police officers and in the ER he was given several doses of IV lorazepam and hydroxyzine ,after he came to up to the floor no acute events. Afebrile. Patient able to communicate well with me. 06/27/2000 [id number] male admitted for alcohol abuse and alcohol withdrawal seizures associated with alcohol withdrawal. No seizure activity in the last 24 hours. No acute events in the last 24 hours. Patient is complaining of left hip pain pain scale of 3-4 x 10 and on examination no evidence of any increasing pain. I am going to put him on Tylenol 650 every 4 as needed for pain. His blood pressure is still running low 99/44 I stopped his metoprolol because he is also became bradycardic last night. Pt is on normal saline at 100 cc/h. Physical Exam Vital Signs: Temp Pulse Resp BP Pulse Ox 98.1 F 72 19 116/70 98 06/28/18 08:57 06/28/18 08:57 06/28/18 08:57 06/28/18 08:57 06/28/18 08:57 Intake & Output 06/27/18 06/28/18 06/29/18 06:59 06:59 06:59 Intake Total 2005 3327.2 912 Output Total 1200 2750 Balance 806 577.2 912 Weight 58.2 kg 61.6 kg General appearance: PRESENT: no acute distress Head exam: PRESENT: atraumatic Eye exam: PRESENT: PERRLA Mouth exam: PRESENT: moist Neck exam: ABSENT: carotid bruit, JVD, lymphadenopathy, thyromegaly Respiratory exam: PRESENT: clear to auscultation bigg. ABSENT: rales, rhonchi, wheezes Cardiovascular exam: PRESENT: RRR. ABSENT: diastolic murmur, rubs, systolic murmur GI/Abdominal exam: PRESENT: normal bowel sounds, soft. ABSENT: distended, guarding, mass, organolmegaly, rebound, tenderness Neurological exam: PRESENT: alert, awake, oriented to person, oriented to place, oriented to time, oriented to situation, CN II-XII grossly intact. ABSENT: motor sensory deficit Psychiatric exam: PRESENT: appropriate affect, normal mood. ABSENT: homicidal ideation, suicidal ideation Results Laboratory Results: 06/28/18 05:06 06/28/18 05:06 06/28/18 06/28/18 05:06 05:06 WBC 7.1 RBC 3.85 L Hgb 12.1 L Hct 35.4 L MCV 92 MCH 31.3 MCHC 34.0 RDW 13.6 Plt Count 260 Sodium 139.7 Potassium 4.5 Chloride 108 H Carbon Dioxide 26 Anion Gap 6 BUN 9 Creatinine 0.85 Est GFR ( Amer) > 60 Est GFR (Non-Af Amer) > 60 Glucose 83 Calcium 8.9 Magnesium 2.0 Total Bilirubin 0.2 AST 56 ALT 49 Alkaline Phosphatase 52 Total Protein 5.5 L Albumin 3.1 L Lipase 134.1 Impressions: Head CT 06/25/18 15:14 IMPRESSION: NORMAL BRAIN CT WITHOUT CONTRAST. EVIDENCE OF ACUTE STROKE: NO. Ankle X-Ray 06/25/18 16:37 IMPRESSION: NEGATIVE STUDY OF THE LEFT ANKLE. NO RADIOGRAPHIC EVIDENCE OF ACUTE INJURY. Qualifiers - * PATIENT BEING DISCHARGED WITH ANY OF THE FOLLOWING DIAGNOSIS: No VTE patient discharged on overlapping Therapy?: Yes
== END 2018-06-28 09:10 | disposition home or self-care (01) | DRG 897 ==
LOC: ER 14:48 → EH 20:52 → 3N 06-26 00:25
PROVIDERS: ADMIT Emergency Medicine; ATTEND Emergency Medicine
PROC: 3E0234Z Introduction of Serum, Toxoid and Vaccine into Muscle, Percutaneous Approach (ICD-10-PCS; principal; 2018-06-28)
DX: F10.239 Alcohol dependence with withdrawal, unspecified (principal); E87.1 Hypo-osmolality and hyponatremia; E87.2 Acidosis; G40.909 Epilepsy, unspecified, not intractable, without status epilepticus; E87.5 Hyperkalemia; K21.9 Gastro-esophageal reflux disease without esophagitis; I95.9 Hypotension, unspecified; D72.829 Elevated white blood cell count, unspecified; M25.552 Pain in left hip; F17.210 Nicotine dependence, cigarettes, uncomplicated; Y90.0 Blood alcohol level of less than 20 mg/100 ml; Z60.2 Problems related to living alone; Z23 Encounter for immunization
CPT/HCPCS: 36415; 70450; 80048; 80053; 80076; 80307; 81001; 82962; 83690; 83735; 84439; 84443; 84481; 85025; 85027; 90686; 93005; 93010; 96361; 96374; 96376; 99285; J1644; J2060; J3360; J3411; J3490; J7030; J7050

== ENCOUNTER 2019-02-07 18:54 | Emergency (ER) | payer OTHER ==
--- NOTE | 2019-02-07 20:05 | ER Document Report ---
ED Medical Screen (RME) - General Chief Complaint: GI Bleeding Stated Complaint: RECTAL BLEEDING Time Seen by Provider: 02/07/19 19:44 Notes: HPI: 33-year-old male with listed past medical history here for epigastric abdominal pain, dark stool, concern for GI bleed, history of gastric ulcers secondary to EtOH use. sx have been on going for atleast a month, worse over the last week. He states he drinks at least a 12 pack of beer a day. He did notice a small amount of dark blood in his vomit a couple times today so he came in for evaluation and along with his abdominal pain and concern for blood in his stool. He also states he is out of his Valium. Denies any withdrawal symptoms. Denies prior history of DTs or alcohol withdrawal seizures. Denies any detox or inpatient treatment for his conditions. Denies any abdominal surgeries other than a remote hernia repair. He denies any blood thinners but he does take daily Goody powders. Denies any liquor or other forms of EtOH. Does smoke cigarettes. denies drug use. His PCP is Dr. Dalton and he is awaiting a referral to GI. He has not had an EGD or colonoscopy. He does take omeprazole and Zantac; however, states they are no longer controlling his symptoms. He denies any acute blood loss symptoms. Denies any history of anemia. denies blood transfusions. Denies any history of bleeding or clotting disorders. Denies syncope. denies bleeding from any where else. no uti sx. no trauma or injury. no hx of diabetes or asthma. no testicular pain/swelling, penile dc/rash/lesions, or concerns for stds. no recent abx or steroids. hasn't taken anything for sx. no hx of gb dz, pancreatitis, ibs, or crohns. no sick contacts. no uri sx. no rash. no recent illness. pain a little worse with eating. states also has some rectal pain, denies brbpr. denies hx of hemorrhoids. No other complaints this time. ROS neg to include 10 systems, unless mentioned in the hpi. PE:>>>> PHYSICAL_EXAM: GENERAL_APPEARANCE: well_nourished, alert, cooperative, no_acute_distress, mild_obvious_discomfort. pleasant, thin young white male, with blood shot eyes, appears older than stated age, speaking in full sentences, in no sign of resp distress, appears uncomfortable and chronically disheveled but not toxic. VITALS: reviewed, see vital signs table. HEAD: no_swelling\tenderness on the head. normocephalic. atraumatic. no samano signs. no raccoons eyes. EYES: PERRL, EOMI, conjunctiva_injected bilat NOSE: no_nasal_discharge. MOUTH: (-)decreased moisture. THROAT: no_tonsilar_inflammation, no_airway_obstruction. no_lymphadenopathy NECK: supple, no_neck_tenderness, full rom. full strength. no meningeal signs. BACK: no_back_tenderness. CHEST_WALL: no_chest_tenderness. no overlying skin changes LUNGS: no_wheezing, ctab (-)accessory muscle use, good air exchange bilateral. HEART: normal_rate, normal_rhythm, ABDOMEN: normal_BS, soft, mild-mod ttp in the epigastrium, (-)guarding, (- )rebound, no distension or peritoneal signs. no cva ttp EXTREMITIES: strength 5/5 in all_extremities, good pulses in all_extremities, no_swelling\tenderness in the extremities, no_edema. full rom. normal gait. good pulses. brisk cap refill. 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 neg vitor sign NEURO: motor and sensation intact, SKIN: warm, dry, good_color, no_rash. MENTAL_STATUS: speech_clear, oriented_X_3, normal_affect, responds_appropriately to questions. MDM: I have ordered labs and initial work-up and patient will be transferred to the main ER for further work-up. I have greeted and performed a rapid initial assessment of this patient. A comprehensive ED assessment and evaluation of the patient, analysis of test results and completion of medical decision making process will be conducted by an additional ED providers. Documentation achieved through voice recording which my lead to some occasional accidental typographical errors. Extensive efforts have been made to proof read documentation to make sure these are the least as possible Temp Pulse Resp BP Pulse Ox 02/07/19 19:07 98.4 F 92 18 127/81 H 96 Category Date Time Status STOOL [FECAL OCCB POC (ED)] NOW Care 02/07/19 20:12 Ordered CHEST 2 VIEWS [RAD] Stat Exams 02/07/19 20:[address] ABD/PELVIS WITH IV & ORAL [CT] Stat Exams 02/07/19 Ordered ACETAMINOPHEN [CHEM] Stat Lab 02/07/19 20:09 Ordered ALCOHOL [CHEM] Stat Lab 02/07/19 20:09 Ordered CBC WITH DIFF [HEME] Stat Lab 02/07/19 20:09 Ordered COMPREHENSIVE METABOLIC PANEL [CHEM] Stat Lab 02/07/19 20:09 Ordered CREATINE KINASE MB [CHEM] Stat Lab 02/07/19 20:09 Ordered LIPASE [CHEM] Stat Lab 02/07/19 20:09 Ordered MAGNESIUM [CHEM] Stat Lab 02/07/19 20:10 Ordered PARTIAL THROMBOPLASTIN TIME [COAG] Stat Lab 02/07/19 20:09 Ordered PROTHROMBIN TIME/INR [COAG] Stat Lab 02/07/19 20:09 Ordered URINALYSIS [URIN] Stat Lab 02/07/19 20:09 Uncollected URINE DRUG SCREEN [CHEM] Stat Lab 02/07/19 20:10 Uncollected Normal Saline 1000 ml [NaCl 0.9% 1000 ml IV Soln] 1,000 Med 02/07/19 20:10 Ordered ml IV BOLUS Ondansetron HCl/Pf [Zofran Inj/Pf 4 mg/2 ml Sdv] Med 02/07/19 20:10 Once 4 mg IV NOW ONE Pantoprazole Sodium [Protonix IV Inj 40 mg Vial] Med 02/07/19 20:10 Once 80 mg IV .BOLUS (IVBAG) ONE TRAVEL OUTSIDE OF THE [place] IN LAST 30 DAYS: No - Related Data Allergies/Adverse Reactions: No Known Allergies Allergy (Verified 02/07/19 19:04) Past Medical History - Past Medical History Cardiac Medical History: Denies: Hx Coronary Artery Disease, Hx Hypertension Pulmonary Medical History: Reports: Hx Asthma, Hx Bronchitis, Hx COPD Neurological Medical History: Reports: Hx Migraine, Hx Seizures - With hypoglycemia and alcohol withdrawal Endocrine Medical History: Denies: Hx Diabetes Mellitus Type 1, Hx Diabetes Mellitus Type 2 Renal/ Medical History: Denies: Hx Peritoneal Dialysis GI Medical History: Reports: Hx Gastroesophageal Reflux Disease, Hx Hiatal Hernia - hernia Musculoskeltal Medical History: Reports Hx Arthritis - Back, bigg knees, Denies Hx Gout, Reports Hx Musculoskeletal Trauma Skin Medical History: Denies Hx Eczema, Denies Hx Psoriasis Psychiatric Medical History: Reports: Hx Anxiety, Hx Depression Past Surgical History: Reports: Hx Abdominal Surgery - hernia, Hx Herniorrhaphy - Right inguinal, Hx Inguinal Hernia - right - Immunizations Immunizations up to date: Yes Hx Diphtheria, Pertussis, Tetanus Vaccination: Yes - 2011 Physical Exam - Vital signs Vitals: Temp Pulse Resp BP Pulse Ox 98.4 F 92 18 127/81 H 96 02/07/19 19:07 02/07/19 19:07 02/07/19 19:07 02/07/19 19:07 02/07/19 19:07 Course - Vital Signs Vital signs: Temp Pulse Resp BP Pulse Ox 98.4 F 92 18 127/81 H 96 02/07/19 19:07 02/07/19 19:07 02/07/19 19:07 02/07/19 19:07 02/07/19 19:07
[2019-02-07] MEDS ORDERED: PANTOPRAZOLE SODIUM 40 MG VIAL IV ONE ×2 (20:10→22:45)
[2019-02-07] MEDS ORDERED: NORMAL SALINE 1000 ML 1,000 ML IV ONE (20:10)
[2019-02-07] MEDS ORDERED: ONDANSETRON HCL INJ/PF 4 MG/2 ML SDV IV ONE (20:10)
--- NOTE | 2019-02-07 21:03 | RADIOLOGY REPORT (SQ) ---
EXAM DESCRIPTION: CLINICAL HISTORY: 33 years Male, hematemesis COMPARISON: 08/28/2013. FINDINGS: Cardiomediastinal silhouette is not enlarged. Mild hyperinflation. No acute lung pleural and bony abnormalities. IMPRESSION: Hyperinflation without acute findings.
[2019-02-07 21:33] LABS: ABSOLUTE EOSINOPHILS # (AUTO) 0.2 10^3/uL (0.0-0.6); ABSOLUTE LYMPHOCYTES (AUTO) 1.6 10^3/uL (0.5-4.7); ABSOLUTE MONOCYTES (AUTO) 0.6 10^3/uL (0.1-1.4); ABSOLUTE NEUT (AUTO) 3.5 10^3/uL (1.7-8.2); BASOPHILS % (AUTO) 0.3 % (0-2); HEMATOCRIT 42.2 % (37.9-51.0); HEMOGLOBIN 14.5 g/dL (13.5-17.0); LYMPHOCYTES % (AUTO) 27.1 % (13-45); MEAN CORPUSCULAR HEMOGLOBIN 31.3 pg (27.0-33.4); MEAN CORPUSCULAR HGB CONC 34.4 g/dL (32.0-36.0); MEAN CORPUSCULAR VOLUME 91 fl (80-97); MONOCYTES % (AUTO) 10.6 % (3-13); PLATELET COUNT 311 10^3/uL (150-450); RED BLOOD COUNT 4.64 10^6/uL (4.35-5.55); RED CELL DISTRIBUTION WIDTH 14.9 % (11.5-14.0); TOTAL CELLS COUNTED % (AUTO) 100 %; WHITE BLOOD COUNT 5.9 10^3/uL (4.0-10.5)
[2019-02-07 21:36] LABS: APPEARANCE,URINE CLEAR; BILIRUBIN,URINE NEGATIVE (NEGATIVE); COLOR,URINE COLORLESS; GLUCOSE, URINE NEGATIVE (NEGATIVE); KETONES,URINE NEGATIVE (NEGATIVE); LEUKOCYTE ESTERASE,URINE NEGATIVE (NEGATIVE); NITRITE,URINE NEGATIVE (NEGATIVE); PROTEIN,URINE NEGATIVE (NEGATIVE); URINE SPECIFIC GRAVITY 1.001; UROBILINOGEN,URINE NEGATIVE mg/dL (<2.0)
[2019-02-07 21:47] LABS: INTERNATIONAL RATION (INR) 0.85; PROTHROMBIN TIME 11.5 SEC (11.4-15.4)
[2019-02-07 21:48] LABS: PARTIAL THROMBOPLASTIN TIME 38.5 SEC (23.5-35.8)
[2019-02-07 21:50] LABS: ALBUMIN 4.7 g/dL (3.5-5.0); ALKALINE PHOSPHATASE 74 U/L (38-126); ANION GAP 11 (5-19); ASPARTATE AMINO TRANSFERASE 58 U/L (17-59); BILIRUBIN,DIRECT 0.1 mg/dL (0.0-0.4); BILIRUBIN,TOTAL 0.2 mg/dL (0.2-1.3); BLOOD UREA NITROGEN 5 mg/dL (7-20); CALCIUM 9.3 mg/dL (8.4-10.2); CARBON DIOXIDE 29 mmol/L (22-30); CHLORIDE 94 mmol/L (98-107); GLUCOSE 91 mg/dL (75-110); POTASSIUM 4.6 mmol/L (3.6-5.0); TOTAL PROTEIN 7.4 g/dL (6.3-8.2)
[2019-02-07 21:51] LABS: ACETAMINOPHEN < 10 ug/mL (10-30); ALCOHOL 250 mg/dL (NONE DETECTED); URINE AMPHETAMINES SCREEN NEGATIVE; URINE BARBITURATES SCREEN NEGATIVE; URINE BENZODIAZEPINES SCREEN NEGATIVE; URINE COCAINE SCREEN NEGATIVE; URINE MARIJUANA (THC) SCREEN NEGATIVE; URINE METHADONE SCREEN NEGATIVE; URINE PHENCYCLIDINE SCREEN NEGATIVE
[2019-02-07] MEDS ORDERED: ONDANSETRON HCL INJ/PF 4 MG/2 ML SDV ONE (22:34)
--- NOTE | 2019-02-07 23:39 | RADIOLOGY REPORT (SQ) ---
EXAM DESCRIPTION: CT ABDOMEN PELVIS WITH IV CONTRAST COMPLETED DATE/TME: 02/07/2019 00:00 CLINICAL HISTORY: 33 years, Male, RLQ LLQ pain COMPARISON: None. TECHNIQUE: Contrast enhanced CT of the abdomen/pelvis was performed. Coronal and sagittal reformations were created. Images stored on PACS. All CT scanners at this facility use dose modulation, iterative reconstruction, and/or weight based dosing when appropriate to reduce radiation dose to as low as reasonably achievable (ALARA). [facility]: Dose Right [facility]: CareDose [facility]: Dose Right [facility]: Teradose 4D [facility]: [employer] LIMITATIONS: None. FINDINGS: Limited evaluation of the lower chest reveals clear lung bases. The liver, spleen, pancreas, gallbladder, and both adrenal glands appear normal. Calcification is noted about the interpolar region of the right kidney measuring 0.4 cm in size. Both kidneys otherwise enhance symmetrically. There is no hydronephrosis or hydroureter. The urinary bladder is well distended and shows no suspicious finding. The small and large bowel appear normal in caliber. No evidence of bowel obstruction. The appendix is normal. Vascular structures opacify with contrast normally. No suspicious lymphadenopathy or drainable fluid collections are appreciated. Bone windows show no destructive osseous lesions. IMPRESSION: No acute abnormality within the abdomen or pelvis. Nonobstructive right nephrolithiasis. TECHNICAL DOCUMENTATION: Quality ID # [id number]: Final reports with documentation of one or more dose reduction techniques (e.g., Automated exposure control, adjustment of the mA and/or kV according to patient size, use of iterative reconstruction technique) copyright 2010 [employer]- All Rights Reserved
--- NOTE | 2019-02-08 00:44 | ER Document Report ---
ED GI Bleed / Rectal Pain - General Chief Complaint: GI Bleeding Stated Complaint: RECTAL BLEEDING Time Seen by Provider: 02/07/19 19:44 Notes: RME NOTE: HPI: 33-year-old male with listed past medical history here for epigastric abdominal pain, dark stool, concern for GI bleed, history of gastric ulcers secondary to EtOH use. sx have been on going for atleast a month, worse over the last week. He states he drinks at least a 12 pack of beer a day. He did notice a small amount of dark blood in his vomit a couple times today so he came in for evaluation and along with his abdominal pain and concern for blood in his stool. He also states he is out of his Valium. Denies any withdrawal symptoms. Denies prior history of DTs or alcohol withdrawal seizures. Denies any detox or inpatient treatment for his conditions. Denies any abdominal surgeries other than a remote hernia repair. He denies any blood thinners but he does take daily Goody powders. Denies any liquor or other forms of EtOH. Does smoke cigarettes. denies drug use. His PCP is Dr. Dalton and he is awaiting a referral to GI. He has not had an EGD or colonoscopy. He does take omeprazole and Zantac; however, states they are no longer controlling his symptoms. He denies any acute blood loss symptoms. Denies any history of anemia. denies blood transfusions. Denies any history of bleeding or clotting disorders. Denies syncope. denies bleeding from any where else. no uti sx. no trauma or injury. no hx of diabetes or asthma. no testicular pain/swelling, penile dc/rash/lesions, or concerns for stds. no recent abx or steroids. hasn't taken anything for sx. no hx of gb dz, pancreatitis, ibs, or crohns. no sick contacts. no uri sx. no rash. no recent illness. pain a little worse with eating. states also has some rectal pain, denies brbpr. denies hx of hemorrhoids. No other complaints this time. MY HPI: Patient does openly admits to drinking 6 beers today. States he also has been vomiting intermittently for the last couple of weeks. States 3 weeks ago he did vomit with blood in his emesis. States it was speckled. Patient states he vomited yesterday is denying any blood in his emesis. Patient's denying any nausea at this time. Upon examination patient is complaining of right and left lower abdominal pain. Patient's denying epigastric pain to me. Medications: Prozac, omeprazole, Zantac, lisinopril, Valium TRAVEL OUTSIDE OF THE [place] IN LAST 30 DAYS: No - Related Data Allergies/Adverse Reactions: No Known Allergies Allergy (Verified 02/07/19 19:04) Past Medical History - General Information source: Patient - Social History Smoking Status: Current Every Day Smoker Frequency of alcohol use: 12 BEERS PER DAY Drug Abuse: None Family History: CAD, DM, Hypertension Patient has suicidal ideation: No Patient has homicidal ideation: No - Past Medical History Cardiac Medical History: Denies: Hx Coronary Artery Disease, Hx Hypertension Pulmonary Medical History: Reports: Hx Asthma, Hx Bronchitis, Hx COPD Neurological Medical History: Reports: Hx Migraine, Hx Seizures - With hypoglycemia and alcohol withdrawal Endocrine Medical History: Denies: Hx Diabetes Mellitus Type 1, Hx Diabetes Mellitus Type 2 Renal/ Medical History: Denies: Hx Peritoneal Dialysis GI Medical History: Reports: Hx Gastroesophageal Reflux Disease, Hx Hiatal Hernia - hernia Musculoskeletal Medical History: Reports Hx Arthritis - Back, bigg knees, Denies Hx Gout, Reports Hx Musculoskeletal Trauma Skin Medical History: Denies Hx Eczema, Denies Hx Psoriasis Psychiatric Medical History: Reports: Hx Anxiety, Hx Depression Past Surgical History: Reports: Hx Abdominal Surgery - hernia, Hx Herniorrhaphy - Right inguinal, Hx Inguinal Hernia - right - Immunizations Immunizations up to date: Yes Hx Diphtheria, Pertussis, Tetanus Vaccination: Yes - 2011 Review of Systems - Review of Systems Constitutional: denies: Fever EENT: No symptoms reported Cardiovascular: No symptoms reported Respiratory: No symptoms reported Gastrointestinal: See HPI Genitourinary: No symptoms reported Male Genitourinary: No symptoms reported Musculoskeletal: No symptoms reported Skin: No symptoms reported Hematologic/Lymphatic: See HPI Neurological/Psychological: No symptoms reported Physical Exam - Vital signs Vitals: Temp Pulse Resp BP Pulse Ox 98.4 F 92 18 127/81 H 96 02/07/19 19:07 02/07/19 19:07 02/07/19 19:07 02/07/19 19:07 02/07/19 19:07 - Notes Notes: GENERAL: Alert, interacts well. No acute distress. HEAD: Normocephalic, atraumatic. EYES: Pupils equal, round, and reactive to light. Extraocular movements intact. ENT: Oral mucosa moist, tongue midline. NECK: Full range of motion. Supple. Trachea midline. LUNGS: Clear to auscultation bilaterally, no wheezes, rales, or rhonchi. No res piratory distress. HEART: Regular rate and rhythm. No murmur ABDOMEN: Soft, generalized right lower and left lower abdominal pain noted. Non- distended. Bowel sounds present in all 4 quadrants. EXTREMITIES: Moves all 4 extremities spontaneously. No edema, normal radial and dorsalis pedis pulses bilaterally. No cyanosis. BACK: no cervical, thoracic, lumbar midline tenderness. No saddle anesthesia, n ormal distal neurovascular exam. NEUROLOGICAL: Alert and oriented x3. Normal speech. cranial nerves II through XII grossly intact PSYCH: Normal affect, normal mood. SKIN: Warm, dry, normal turgor. No rashes or lesions noted. Rectal exam: Master Technician Ai MELVIN, no obvious melena seen, no internal or external hemorrhoids seen or felt, no anal fissures noted. Brown stool noted on glove. Course - Re-evaluation Re-evalutation: 02/08/19 00:42 Laboratory 02/07/19 02/07/19 02/07/19 21:12 21:12 21:12 WBC 5.9 RBC 4.64 Hgb 14.5 Hct 42.2 MCV 91 MCH 31.3 MCHC 34.4 RDW 14.9 H Plt Count 311 Seg Neutrophils % 59.0 Lymphocytes % 27.1 Monocytes % 10.6 Eosinophils % 3.0 Basophils % 0.3 Absolute Neutrophils 3.5 Absolute Lymphocytes 1.6 Absolute Monocytes 0.6 Absolute Eosinophils 0.2 Absolute Basophils 0.0 PT 11.5 INR 0.85 APTT 38.5 H Sodium 134.3 L Potassium 4.6 Chloride 94 L Carbon Dioxide 29 Anion Gap 11 BUN 5 L Creatinine 0.71 Est GFR ( Amer) > 60 Est GFR (Non-Af Amer) > 60 Glucose 91 Calcium 9.3 Magnesium Total Bilirubin 0.2 Direct Bilirubin 0.1 Neonat Total Bilirubin Not Reportable Neonat Direct Bilirubin Not Reportable Neonat Indirect Bili Not Reportable AST 58 ALT 24 Alkaline Phosphatase 74 CK-MB (CK-2) Total Protein 7.4 Albumin 4.7 Lipase Urine Color Urine Appearance Urine pH Ur Specific [place] Urine Protein Urine Glucose (UA) Urine Ketones Urine Blood Urine Nitrite Urine Bilirubin Urine Urobilinogen Ur Leukocyte Esterase Urine RBC (Auto) Urine Mucus (Auto) Urine Ascorbic Acid POC Stool Occult Blood Urine Opiates Screen Urine Methadone Screen Acetaminophen Ur Barbiturates Screen Ur Phencyclidine Scrn Ur Amphetamines Screen U Benzodiazepines Scrn Urine Cocaine Screen U Marijuana (THC) Screen Serum Alcohol 02/07/19 02/07/19 02/07/19 21:12 21:12 21:12 WBC RBC Hgb Hct MCV MCH MCHC RDW Plt Count Seg Neutrophils % Lymphocytes % Monocytes % Eosinophils % Basophils % Absolute Neutrophils Absolute Lymphocytes Absolute Monocytes Absolute Eosinophils Absolute Basophils PT INR APTT Sodium Potassium Chloride Carbon Dioxide Anion Gap BUN Creatinine Est GFR ( Amer) Est GFR (Non-Af Amer) Glucose Calcium Magnesium 2.1 Total Bilirubin Direct Bilirubin Neonat Total Bilirubin Neonat Direct Bilirubin Neonat Indirect Bili AST ALT Alkaline Phosphatase CK-MB (CK-2) 3.55 Total Protein Albumin Lipase 141.4 Urine Color COLORLESS Urine Appearance CLEAR Urine pH 8.0 Ur Specific [place] 1.001 Urine Protein NEGATIVE Urine Glucose (UA) NEGATIVE Urine Ketones NEGATIVE Urine Blood NEGATIVE Urine Nitrite NEGATIVE Urine Bilirubin NEGATIVE Urine Urobilinogen NEGATIVE Ur Leukocyte Esterase NEGATIVE Urine RBC (Auto) 0 Urine Mucus (Auto) RARE Urine Ascorbic Acid NEGATIVE POC Stool Occult Blood Urine Opiates Screen Urine Methadone Screen Acetaminophen < 10 L Ur Barbiturates Screen Ur Phencyclidine Scrn Ur Amphetamines Screen U Benzodiazepines Scrn Urine Cocaine Screen U Marijuana (THC) Screen Serum Alcohol 250 02/07/19 02/07/19 21:12 22:54 WBC RBC Hgb Hct MCV MCH MCHC RDW Plt Count Seg Neutrophils % Lymphocytes % Monocytes % Eosinophils % Basophils % Absolute Neutrophils Absolute Lymphocytes Absolute Monocytes Absolute Eosinophils Absolute Basophils PT INR APTT Sodium Potassium Chloride Carbon Dioxide Anion Gap BUN Creatinine Est GFR ( Amer) Est GFR (Non-Af Amer) Glucose Calcium Magnesium Total Bilirubin Direct Bilirubin Neonat Total Bilirubin Neonat Direct Bilirubin Neonat Indirect Bili AST ALT Alkaline Phosphatase CK-MB (CK-2) Total Protein Albumin Lipase Urine Color Urine Appearance Urine pH Ur Specific [place] Urine Protein Urine Glucose (UA) Urine Ketones Urine Blood Urine Nitrite Urine Bilirubin Urine Urobilinogen Ur Leukocyte Esterase Urine RBC (Auto) Urine Mucus (Auto) Urine Ascorbic Acid POC Stool Occult Blood NEGATIVE Urine Opiates Screen NEGATIVE Urine Methadone Screen NEGATIVE Acetaminophen Ur Barbiturates Screen NEGATIVE Ur Phencyclidine Scrn NEGATIVE Ur Amphetamines Screen NEGATIVE U Benzodiazepines Scrn NEGATIVE Urine Cocaine Screen NEGATIVE U Marijuana (THC) Screen NEGATIVE Serum Alcohol Abdomen/Pelvis CT 02/07/19 00:00 IMPRESSION: No acute abnormality within the abdomen or pelvis. Nonobstructive right nephrolithiasis. TECHNICAL DOCUMENTATION: Quality ID # [id number]: Final reports with documentation of one or more dose reduction techniques (e.g., Automated exposure control, adjustment of the mA and/or kV according to patient size, use of iterative reconstruction technique) copyright 2011 [employer]- All Rights Reserved Chest X-Ray 02/07/19 20:11 IMPRESSION: Hyperinflation without acute findings. Patient has been clinically sober his entire visit to the emergency department. Patient states after fluid resuscitation he feels better. Patient's CT imaging reveals no signs of abnormalities. Patient's guaiac stool was negative. Patient's hemoglobin and hematocrit are stable. I discussed with patient at bedside continued use of omeprazole and Zantac. I have also discussed continued follow-up with primary care provider and then outpatient gastroenterology. Patient voices understanding. I also discussed with patient at length the need to stop EtOH abuse. At this time will discharge with return precautions and follow-up recommendations. Verbal discharge instructions given a the bedside and opportunity for questions given. Medication warnings reviewed. Patient is in agreement with this plan and has verbalized understanding of return precautions and the need for primary care follow-up in the next 24-72 hours. This medical record was dictated with voice recognizing software. There may be grammatical, syntax errors that are unintended. 02/08/19 00:45 - Vital Signs Vital signs: Temp Pulse Resp BP Pulse Ox 98.4 F 92 18 127/81 H 96 02/07/19 19:07 02/07/19 19:07 02/07/19 19:07 02/07/19 19:07 02/07/19 19:07 - Laboratory Result Diagrams: 02/07/19 21:12 02/07/19 21:12 Laboratory results interpreted by me: 02/07/19 02/07/19 02/07/19 21:12 21:12 21:12 RDW 14.9 H APTT 38.5 H Sodium 134.3 L Chloride 94 L BUN 5 L Acetaminophen 02/07/19 21:12 RDW APTT Sodium Chloride BUN Acetaminophen < 10 L Discharge - Discharge Clinical Impression: Alcoholic Abdominal pain Qualifiers: Abdominal location: generalized Qualified Code(s): R10.84 - Generalized ab dominal pain Condition: Stable Disposition: HOME, SELF-CARE Instructions: Abdominal Pain ([facility]), Reflux Disease (GERD) ([facility]) Additional Instructions: As we discussed you have been seen and treated in the emergency department for generalized abdominal pain and your concern of rectal bleeding. Your labs revealed no abnormalities in your hemoglobin. Your rectal exam also revealed no obvious signs of bleeding. Please make sure you follow-up with your primary care provider and inevitably gastroenterology in the next 24 to 48 hours. Please also return to the emergency room should you have any further concerns. Referrals: YANNI AGUAYO MD [ACTIVE STAFF] - Follow up as needed
[2019-02-08 01:03] VITALS: BP 119/84
== END 2019-02-08 01:05 | disposition home or self-care (01) ==
LOC: ER 18:54
DX: F10.20 Alcohol dependence, uncomplicated (principal); R10.13 Epigastric pain; K92.2 Gastrointestinal hemorrhage, unspecified; F17.200 Nicotine dependence, unspecified, uncomplicated
CPT/HCPCS: 81001; 36415; 82553; 80307 ×3; 83690; 83735; 85025; 85610; 85730; 80053; 71046; 74177; S0164; J2405; J7030; 96361; 96374; 96375; 99285

== ENCOUNTER 2019-02-14 10:55 | Day surgery (SDC) | payer OTHER ==
[~2019-02-14 10:55] MED LIST: PROPOFOL INJ 200 MG/20 ML VIAL IV ONE
--- NOTE | 2019-02-14 12:26 | Operative Report ---
Operative Report DATE OF SURGERY: 02/14/19 PREOPERATIVE DIAGNOSIS: Change in bowel habits. Melena POSTOPERATIVE DIAGNOSIS: Gastritis status post biopsy. Right colon inflammation status post biopsy rule out collagenous colitis OPERATION: Colonoscopy with biopsy. EGD with biopsy SURGEON: PRISCILLA BOLAÑOS ANESTHESIA: LMAC TISSUE REMOVED OR ALTERED: As noted above. COMPLICATIONS: None. ESTIMATED BLOOD LOSS: None. INTRAOPERATIVE FINDINGS: As noted above. PROCEDURE: Risk benefits alternatives of the procedure including the risk of bleeding, perforation requiring surgery have been explained to the patient in detail and informed consent has been obtained. Patient is taken back to the endoscopy suite and placed in a left, lateral decubital position. Timeout was called. Propofol medication is administered. Rectal examination is done which did not reveal any masses, tears or fissures. An Olympus videoscope was inserted into the patient's rectum. The scope was then advanced all the way to the cecum. Cecum was identified by the usual anatomical landmarks including the ileocecal valve as well as appendiceal office. The distal segments of the colon not examined. Retroflexion maneuvers performed. The risks benefits and alternatives of the procedure explained to the patient in detail and informed consent is obtained.A GIF Olympus video scope was inserted into the patient's mouth and hypopharynx, the esophagus is identified intubated and insufflated, the scope was then advanced through the esophagus stomach and duodenum, retroflexion maneuver is done, the esophagus stomach and first and second portions of the duodenum examined. Patient tolerated the procedure well. No immediate postprocedure complications are noted. Patient is discharged in good condition. Discharge date 02/14/2019. Discharge diet: Regular. Discharge activity: Regular. 2 to 3-week follow-up to discuss findings. Patient is instructed to call the office or proceed to the emergency room should there be any further problems or questions. Wait on the pathology.
[2019-02-14 12:53] VITALS: BP 130/70
== END 2019-02-14 12:50 | disposition home or self-care (01) ==
LOC: END 10:55
PROVIDERS: ATTEND Internal Medicine Gastroenterology
DX: K62.5 Hemorrhage of anus and rectum (principal); K29.50 Unspecified chronic gastritis without bleeding; K52.9 Noninfective gastroenteritis and colitis, unspecified; F17.210 Nicotine dependence, cigarettes, uncomplicated; I10 Essential (primary) hypertension; J44.9 Chronic obstructive pulmonary disease, unspecified
CPT/HCPCS: 88342 ×2; 88305 ×2; 00813; J2704; 43239; 45380; 813

== ENCOUNTER → 2019-02-21 | Outpatient (CLI) | payer OTHER ==
[2019-02-21 13:09] LABS: HEMATOCRIT 38.5 % (37.9-51.0); HEMOGLOBIN 13.4 g/dL (13.5-17.0); MEAN CORPUSCULAR HEMOGLOBIN 32.1 pg (27.0-33.4); MEAN CORPUSCULAR HGB CONC 34.8 g/dL (32.0-36.0); MEAN CORPUSCULAR VOLUME 92 fl (80-97); PLATELET COUNT 311 10^3/uL (150-450); RED BLOOD COUNT 4.17 10^6/uL (4.35-5.55); RED CELL DISTRIBUTION WIDTH 14.3 % (11.5-14.0); WHITE BLOOD COUNT 7.5 10^3/uL (4.0-10.5)
[2019-02-21 13:12] LABS: APPEARANCE,URINE CLEAR; BILIRUBIN,URINE NEGATIVE (NEGATIVE); COLOR,URINE COLORLESS; GLUCOSE, URINE NEGATIVE (NEGATIVE); KETONES,URINE NEGATIVE (NEGATIVE); LEUKOCYTE ESTERASE,URINE NEGATIVE (NEGATIVE); NITRITE,URINE NEGATIVE (NEGATIVE); PROTEIN,URINE NEGATIVE (NEGATIVE); URINE SPECIFIC GRAVITY 1.001; UROBILINOGEN,URINE NEGATIVE mg/dL (<2.0)
[2019-02-21 13:34] LABS: ALBUMIN 4.4 g/dL (3.5-5.0); ALKALINE PHOSPHATASE 63 U/L (38-126); AMYLASE 77 U/L (30-110); ANION GAP 8 (5-19); ASPARTATE AMINO TRANSFERASE 56 U/L (17-59); BILIRUBIN,DIRECT 0.2 mg/dL (0.0-0.4); BILIRUBIN,TOTAL 0.2 mg/dL (0.2-1.3); BLOOD UREA NITROGEN 6 mg/dL (7-20); CALCIUM 9.1 mg/dL (8.4-10.2); CARBON DIOXIDE 31 mmol/L (22-30); CHLORIDE 94 mmol/L (98-107); CHOLESTEROL 202.84 mg/dL (0-200); GLUCOSE 98 mg/dL (75-110); TOTAL PROTEIN 7.1 g/dL (6.3-8.2); TRIGLYCERIDES 235 mg/dL (<150)
[2019-02-21 13:45] LABS: DIRECT LDL 110 mg/dL (<100)
== END ==
LOC: LAB 12:32
PROVIDERS: ATTEND Internal Medicine
DX: R10.84 Generalized abdominal pain (principal); R10.13 Epigastric pain
CPT/HCPCS: 36415; 80053; 80061; 81001; 82150; 83690; 85027

== ENCOUNTER 2019-03-07 14:06 | Emergency (ER) | payer OTHER ==
[2019-03-07] MEDS ORDERED: ONDANSETRON 4 MG TAB.RAPDIS PO ONE (14:42)
--- NOTE | 2019-03-07 14:42 | ER Document Report ---
ED Medical Screen (RME) - General Chief Complaint: Rectal Bleeding Stated Complaint: RECTAL BLEEDING Time Seen by Provider: 03/07/19 14:39 Primary Care Provider: RACQUEL DUKES MD [Primary Care Provider] - Follow up as needed Mode of Arrival: Ambulatory Information source: Patient Notes: 33-year-old male presented to ED for complaint of abdominal pain. He states he has rectal bleeding from hemorrhoids. He states his primary care doctor told him and told him that he needed to get surgery for his hemorrhoids. He states that he was recommended getting surgery from the ER. He states he had the abdominal pain for about 2 months. He states he is seeing a licensed massage therapist for this. He states he has had some nausea and vomiting. He states she has not vomited any today. He states the rectal bleeding from the hemorrhoids started today. He states the bleeding is just when he wipes. Patient states he smokes a pack and a half a day and drinks about 6 beer a day. I have greeted and performed a rapid initial assessment of this patient. A comprehensive ED assessment and evaluation of the patient, analysis of test results and completion of medical decision making process will be conducted by an additional ED providers. TRAVEL OUTSIDE OF THE [place] IN LAST 30 DAYS: No - Related Data Allergies/Adverse Reactions: No Known Allergies Allergy (Verified 03/07/19 14:08) Past Medical History - Past Medical History Cardiac Medical History: Reports: Hx Hypertension Denies: Hx Coronary Artery Disease, Hx Heart Attack Pulmonary Medical History: Reports: Hx Asthma, Hx Bronchitis, Hx COPD Denies: Hx Pneumonia Neurological Medical History: Reports: Hx Migraine, Hx Seizures - With hypoglycemia and alcohol withdrawal. Denies: Hx Cerebrovascular Accident Endocrine Medical History: Denies: Hx Diabetes Mellitus Type 1, Hx Diabetes Mellitus Type 2 Renal/ Medical History: Denies: Hx Peritoneal Dialysis GI Medical History: Reports: Hx Gastroesophageal Reflux Disease, Hx Hiatal Hernia - hernia Musculoskeltal Medical History: Reports Hx Arthritis - Back, bigg knees, Denies Hx Gout, Reports Hx Musculoskeletal Trauma Skin Medical History: Denies Hx Eczema, Denies Hx Psoriasis Psychiatric Medical History: Reports: Hx Anxiety, Hx Depression Past Surgical History: Reports: Hx Abdominal Surgery - hernia, Hx Herniorrhaphy - Right inguinal, Hx Inguinal Hernia - right - Immunizations Immunizations up to date: Yes Hx Diphtheria, Pertussis, Tetanus Vaccination: Yes - 2011 Doctor's Discharge - Discharge Referrals: RACQUEL DUKES MD [Primary Care Provider] - Follow up as needed
[2019-03-07 15:44] LABS: ABSOLUTE BASOPHILS # (AUTO) 0.1 10^3/uL (0.0-0.2); ABSOLUTE EOSINOPHILS # (AUTO) 0.2 10^3/uL (0.0-0.6); ABSOLUTE LYMPHOCYTES (AUTO) 1.3 10^3/uL (0.5-4.7); ABSOLUTE MONOCYTES (AUTO) 0.7 10^3/uL (0.1-1.4); ABSOLUTE NEUT (AUTO) 2.9 10^3/uL (1.7-8.2); HEMOGLOBIN 14.7 g/dL (13.5-17.0); LYMPHOCYTES % (AUTO) 26.1 % (13-45); MEAN CORPUSCULAR HEMOGLOBIN 31.9 pg (27.0-33.4); MEAN CORPUSCULAR HGB CONC 34.2 g/dL (32.0-36.0); MEAN CORPUSCULAR VOLUME 93 fl (80-97); MONOCYTES % (AUTO) 12.9 % (3-13); PLATELET COUNT 329 10^3/uL (150-450); RED BLOOD COUNT 4.61 10^6/uL (4.35-5.55); RED CELL DISTRIBUTION WIDTH 14.2 % (11.5-14.0); TOTAL CELLS COUNTED % (AUTO) 100 %; WHITE BLOOD COUNT 5.2 10^3/uL (4.0-10.5)
[2019-03-07 15:45] LABS: APPEARANCE,URINE CLEAR; BILIRUBIN,URINE NEGATIVE (NEGATIVE); COLOR,URINE STRAW; GLUCOSE, URINE NEGATIVE (NEGATIVE); KETONES,URINE NEGATIVE (NEGATIVE); LEUKOCYTE ESTERASE,URINE NEGATIVE (NEGATIVE); NITRITE,URINE NEGATIVE (NEGATIVE); PROTEIN,URINE NEGATIVE (NEGATIVE); URINE SPECIFIC GRAVITY 1.002; UROBILINOGEN,URINE NEGATIVE mg/dL (<2.0)
[2019-03-07 15:57] LABS: URINE AMPHETAMINES SCREEN NEGATIVE; URINE BARBITURATES SCREEN NEGATIVE; URINE BENZODIAZEPINES SCREEN NEGATIVE; URINE COCAINE SCREEN NEGATIVE; URINE MARIJUANA (THC) SCREEN NEGATIVE; URINE METHADONE SCREEN NEGATIVE; URINE PHENCYCLIDINE SCREEN NEGATIVE
[2019-03-07 15:59] LABS: ALBUMIN 4.8 g/dL (3.5-5.0); ALCOHOL 272 mg/dL (NONE DETECTED); ALKALINE PHOSPHATASE 80 U/L (38-126); ANION GAP 14 (5-19); ASPARTATE AMINO TRANSFERASE 70 U/L (17-59); BILIRUBIN,DIRECT 0.1 mg/dL (0.0-0.4); BILIRUBIN,TOTAL 0.3 mg/dL (0.2-1.3); BLOOD UREA NITROGEN 2 mg/dL (7-20); CALCIUM 9.6 mg/dL (8.4-10.2); CARBON DIOXIDE 26 mmol/L (22-30); CHLORIDE 99 mmol/L (98-107); GLUCOSE 99 mg/dL (75-110); POTASSIUM 4.3 mmol/L (3.6-5.0); TOTAL PROTEIN 7.5 g/dL (6.3-8.2)
--- NOTE | 2019-03-07 19:24 | ER Document Report ---
ED GI Bleed / Rectal Pain - General Chief Complaint: Rectal Bleeding Stated Complaint: RECTAL BLEEDING Time Seen by Provider: 03/07/19 14:39 Primary Care Provider: RACQUEL DUKES MD [PEDIATRICS] - Follow up as needed PRISCILLA BOLAÑOS MD [Primary Care Provider] - Follow up as needed Mode of Arrival: Ambulatory Notes: Patient is a 33-year-old male with a history of gastritis and internal he morrhoids who presents to the emergency department with a chief complaint of rectal bleeding. Patient states around 11 AM this morning he had an episode of diarrhea and when he went to [facility] he noticed bright red blood on his toilet paper. Patient states this is happened a few other times today. Patient reports he has been drinking alcohol, reports drinking 6 beers today. Patient reports he has been having issues with rectal bleeding. Patient states he did have an upper endoscopy and a lower endoscopy a few weeks ago and diagnosed with gastritis and internal hemorrhoids. 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 Patient reports he does not take medications for his acid reflux. Patient denies drug use. Patient does report smoking cigarettes. Patient denies abdominal pain or vomiting. TRAVEL OUTSIDE OF THE [place] IN LAST 30 DAYS: No - Related Data Allergies/Adverse Reactions: No Known Allergies Allergy (Verified 03/07/19 14:08) Past Medical History - General Information source: Patient - Social History Smoking Status: Current Every Day Smoker Chew tobacco use (# tins/day): No Frequency of alcohol use: 6 beers/day Drug Abuse: None Family History: CAD, DM, Hypertension Patient has suicidal ideation: No Patient has homicidal ideation: No - Past Medical History Cardiac Medical History: Reports: Hx Hypertension Denies: Hx Coronary Artery Disease, Hx Heart Attack Pulmonary Medical History: Reports: Hx Asthma, Hx Bronchitis, Hx COPD Denies: Hx Pneumonia Neurological Medical History: Reports: Hx Migraine, Hx Seizures - With hypoglycemia and alcohol withdrawal. Denies: Hx Cerebrovascular Accident Endocrine Medical History: Denies: Hx Diabetes Mellitus Type 1, Hx Diabetes Mellitus Type 2 Renal/ Medical History: Reports: None. Denies: Hx Peritoneal Dialysis Malignancy Medical History: Reports None GI Medical History: Reports: Hx Gastroesophageal Reflux Disease, Hx Hiatal Hernia - hernia Musculoskeletal Medical History: Reports Hx Arthritis - Back, bigg knees, Denies Hx Gout, Reports Hx Musculoskeletal Trauma Skin Medical History: Denies Hx Eczema, Denies Hx Psoriasis Psychiatric Medical History: Reports: Hx Anxiety, Hx Depression Past Surgical History: Reports: Hx Abdominal Surgery - hernia, Hx Herniorrhaphy - Right inguinal, Hx Inguinal Hernia - right - Immunizations Immunizations up to date: Yes Hx Diphtheria, Pertussis, Tetanus Vaccination: Yes - 2011 Review of Systems - Review of Systems Constitutional: No symptoms reported EENT: No symptoms reported Cardiovascular: No symptoms reported Respiratory: No symptoms reported Gastrointestinal: See HPI Genitourinary: No symptoms reported Male Genitourinary: No symptoms reported Musculoskeletal: No symptoms reported Skin: No symptoms reported Hematologic/Lymphatic: No symptoms reported Neurological/Psychological: No symptoms reported Physical Exam - Vital signs Vitals: Temp Pulse Resp BP Pulse Ox 98.5 F 96 16 143/82 H 96 03/07/19 14:38 03/07/19 14:38 03/07/19 14:38 03/07/19 14:38 03/07/19 14:38 Interpretation: Normal - Notes Notes: GENERAL: Well-appearing, well-nourished and in no acute distress. HEAD: Atraumatic, normocephalic. EYES: Pupils equal round and reactive to light, extraocular movements intact, sclera anicteric, conjunctiva are normal. ENT: Nares patent, oropharynx clear without exudates. Moist mucous membranes. NECK: Normal range of motion, supple without lymphadenopathy or JVD. LUNGS: Breath sounds clear to auscultation bilaterally and equal. No wheezes rales or rhonchi. HEART: Regular rate and rhythm without murmurs, rubs or gallops. ABDOMEN: Soft, nontender, hyperactive bowel sounds. No guarding, no rebound. No masses appreciated. BACK: No cervical, thoracic, lumbar midline tenderness. No saddle anesthesia, normal distal neurovascular exam. GENITOURINARY: Deferred. EXTREMITIES: Normal range of motion, no pitting or edema. No clubbing or cyanosis. NEUROLOGICAL: Cranial nerves II through XII grossly intact. Normal speech, normal gait. PSYCH: Normal mood, normal affect. SKIN: Warm, Dry, normal turgor, no rashes or lesions noted. Course - Re-evaluation Re-evalutation: 03/07/19 19:28 A rectal exam was performed at the [facility] at the bedside. There is no external hemorrhoids. Patient's internal examination did not reveal any obvious mass, impacted stool or palpable internal hemorrhoids. Patient's Hemoccult was negative. 03/07/19 Upon reevaluation patient is in no acute distress. Patient is mentating appropriately and alert and oriented x3. Patient is ambulatory without distress or an unstable gait. I did inform the patient to stop drinking alcohol as this can exacerbate and worsen his gastritis and bleeding. Patient to call Dr. Bolaños's office tomorrow for a follow-up appointment. Patient to continue with antiacid's. Patient verbalizes understanding and denies questions at this time. - Vital Signs Vital signs: Temp Pulse Resp BP Pulse Ox 98.4 F 95 18 113/76 97 03/07/19 20:14 03/07/19 20:14 03/07/19 20:14 03/07/19 20:14 03/07/19 20:14 - Laboratory Result Diagrams: 03/07/19 15:25 03/07/19 15:25 Laboratory results interpreted by me: 03/07/19 03/07/19 15:25 15:25 RDW 14.2 H BUN 2 L AST 70 H 03/07/19 19:23 Laboratory 03/07/19 03/07/19 03/07/19 15:14 15:14 15:25 WBC 5.2 RBC 4.61 Hgb 14.7 Hct 43.0 MCV 93 MCH 31.9 MCHC 34.2 RDW 14.2 H Plt Count 329 Lymph % (Auto) 26.1 [place] % (Auto) 12.9 Eos % (Auto) 4.0 Baso % (Auto) 1.0 Absolute Neuts (auto) 2.9 Absolute Lymphs (auto) 1.3 Absolute Monos (auto) 0.7 Absolute Eos (auto) 0.2 Absolute Basos (auto) 0.1 Seg Neutrophils % 56.0 Sodium Potassium Chloride Carbon Dioxide Anion Gap BUN Creatinine Est GFR ( Amer) Est GFR (MDRD) Non-Af Glucose Calcium Total Bilirubin Direct Bilirubin Neonat Total Bilirubin Neonat Direct Bilirubin Neonat Indirect Bili AST ALT Alkaline Phosphatase Total Protein Albumin Urine Color STRAW Urine Appearance CLEAR Urine pH 7.0 Ur Specific [place] 1.002 Urine Protein NEGATIVE Urine Glucose (UA) NEGATIVE Urine Ketones NEGATIVE Urine Blood NEGATIVE Urine Nitrite NEGATIVE Urine Bilirubin NEGATIVE Urine Urobilinogen NEGATIVE Ur Leukocyte Esterase NEGATIVE Urine RBC (Auto) 0 Urine Mucus (Auto) RARE Urine Ascorbic Acid NEGATIVE Urine Opiates Screen NEGATIVE Urine Methadone Screen NEGATIVE Ur Barbiturates Screen NEGATIVE Ur Phencyclidine Scrn NEGATIVE Ur Amphetamines Screen NEGATIVE U Benzodiazepines Scrn NEGATIVE Urine Cocaine Screen NEGATIVE U Marijuana (THC) Screen NEGATIVE Serum Alcohol 03/07/19 15:25 WBC RBC Hgb Hct MCV MCH MCHC RDW Plt Count Lymph % (Auto) [place] % (Auto) Eos % (Auto) Baso % (Auto) Absolute Neuts (auto) Absolute Lymphs (auto) Absolute Monos (auto) Absolute Eos (auto) Absolute Basos (auto) Seg Neutrophils % Sodium 139.3 Potassium 4.3 Chloride 99 Carbon Dioxide 26 Anion Gap 14 BUN 2 L Creatinine 0.85 Est GFR ( Amer) > 60 Est GFR (MDRD) Non-Af > 60 Glucose 99 Calcium 9.6 Total Bilirubin 0.3 Direct Bilirubin 0.1 Neonat Total Bilirubin Not Reportable Neonat Direct Bilirubin Not Reportable Neonat Indirect Bili Not Reportable AST 70 H ALT 31 Alkaline Phosphatase 80 Total Protein 7.5 Albumin 4.8 Urine Color Urine Appearance Urine pH Ur Specific [place] Urine Protein Urine Glucose (UA) Urine Ketones Urine Blood Urine Nitrite Urine Bilirubin Urine Urobilinogen Ur Leukocyte Esterase Urine RBC (Auto) Urine Mucus (Auto) Urine Ascorbic Acid Urine Opiates Screen Urine Methadone Screen Ur Barbiturates Screen Ur Phencyclidine Scrn Ur Amphetamines Screen U Benzodiazepines Scrn Urine Cocaine Screen U Marijuana (THC) Screen Serum Alcohol 272 Discharge - Discharge Clinical Impression: Rectal bleeding Alcohol intoxication Qualifiers: Complication of substance-induced condition: uncomplicated Qualified Code(s): F10.920 - Alcohol use, unspecified with intoxication, uncomplicated Condition: Stable Disposition: HOME, SELF-CARE Additional Instructions: Today you are seen in the emergency department for rectal bleeding. Your lab work was unremarkable although you did have a positive alcohol level of 270s. Your rectal exam was reassuring as it did not show any acute blood, external hemorrhoids or palpable internal hemorrhoids. You have been recently diagnosed with gastritis as well as internal hemorrhoids. Please call Dr. Bolaños tomorrow to schedule a follow-up appointment with him. Please continue your antacid medications as previously prescribed. Please return to the emergency department if you develop severe rectal bleeding, abdominal pain, fever or any other concer sae signs or symptoms. Please refrain from drinking as this can make your symptoms worse including the gastritis. Referrals: RACQUEL UDKES MD [PEDIATRICS] - Follow up as needed PRISCILLA BOLAÑOS MD [Primary Care Provider] - Follow up as needed
[2019-03-07 20:19] VITALS: BP 113/76
== END 2019-03-07 20:51 | disposition home or self-care (01) ==
LOC: ER 14:06
DX: K62.5 Hemorrhage of anus and rectum (principal); F10.920 Alcohol use, unspecified with intoxication, uncomplicated; I10 Essential (primary) hypertension
CPT/HCPCS: 99284; 36415; 80307 ×2; 85025; 80053; 81001; S0119

== ENCOUNTER 2019-03-25 20:33 | Inpatient (IN) | payer OTHER ==
[2019-03-25] MEDS ORDERED: DIAZEPAM INJ 10 MG/2 ML DISP.SYRIN IV ONE ×2 (20:56→21:13)
--- NOTE | 2019-03-25 21:01 | ER Document Report ---
ED General - General Chief Complaint: Seizure Stated Complaint: HEADACHE Time Seen by Provider: 03/25/19 20:47 Notes: Patient is a 33-year-old male comes emergency department by EMS for chief complaint of headaches. After arrival to the emergency department while on the EMS stretcher patient proceeded to have what appeared to be a tonic-clonic seizure reported to me by the nurses, patient was taken into the trauma bay after this, on my evaluation patient does appear postictal, he is confused, has trouble answering any questions. He tells me that he has had seizures in the past and he is on home medications including Valium, I asked him when his last alcohol drink was he tells me it was this morning he believes. Patient is still unclear with history. EMS gave him Zofran and Benadryl initially, afterwards a given 5 mg of Versed. History is extremely limited because of patient's postictal state and confusion but he is cooperative with me. TRAVEL OUTSIDE OF THE [place] IN LAST 30 DAYS: No - Related Data Allergies/Adverse Reactions: No Known Allergies Allergy (Verified 03/25/19 20:56) Past Medical History - General Information source: Patient - Social History Smoking Status: Unknown if Ever Smoked Frequency of alcohol use: Heavy Lives with: Alone Family History: CAD, DM, Hypertension Patient has suicidal ideation: No Patient has homicidal ideation: No - Past Medical History Cardiac Medical History: Reports: Hx Hypertension Denies: Hx Coronary Artery Disease, Hx Heart Attack Pulmonary Medical History: Reports: Hx Asthma, Hx Bronchitis, Hx COPD Denies: Hx Pneumonia Neurological Medical History: Reports: Hx Migraine, Hx Seizures - With hypoglycemia and alcohol withdrawal. Denies: Hx Cerebrovascular Accident Endocrine Medical History: Denies: Hx Diabetes Mellitus Type 1, Hx Diabetes Mellitus Type 2 Renal/ Medical History: Denies: Hx Peritoneal Dialysis GI Medical History: Reports: Hx Gastroesophageal Reflux Disease, Hx Hiatal Hernia - hernia Musculoskeletal Medical History: Reports Hx Arthritis - Back, bigg knees, Denies Hx Gout, Reports Hx Musculoskeletal Trauma Skin Medical History: Denies Hx Eczema, Denies Hx Psoriasis Psychiatric Medical History: Reports: Hx Anxiety, Hx Depression Past Surgical History: Reports: Hx Abdominal Surgery - hernia, Hx Herniorrhaphy - Right inguinal, Hx Inguinal Hernia - right - Immunizations Immunizations up to date: Yes Hx Diphtheria, Pertussis, Tetanus Vaccination: Yes - 2011 Review of Systems - Review of Systems Constitutional: No symptoms reported EENT: No symptoms reported Cardiovascular: No symptoms reported Respiratory: No symptoms reported Gastrointestinal: No symptoms reported Genitourinary: No symptoms reported Male Genitourinary: No symptoms reported Musculoskeletal: No symptoms reported Skin: No symptoms reported Hematologic/Lymphatic: No symptoms reported Neurological/Psychological: See HPI Physical Exam - Vital signs Vitals: Resp Pulse Ox 18 99 03/25/19 20:39 03/25/19 20:39 - Notes Notes: GENERAL: Awake, restless, having difficulty holding still HEAD: Normocephalic, atraumatic. EYES: Pupils equal, round, and reactive to light. Extraocular movements intact. ENT: Oral mucosa moist, tongue midline. Oropharynx unremarkable. Airway patent. Nares patent, no nasal septal hematoma NECK: Full range of motion. Supple. Trachea midline. LUNGS: Clear to auscultation bilaterally, no wheezes, rales, or rhonchi. No respiratory distress. HEART: Tachycardia, normal rhythm, no murmur ABDOMEN: Soft, non-tender. Non-distended. EXTREMITIES: Moves all 4 extremities spontaneously. No edema, normal radial and dorsalis pedis pulses bilaterally. No cyanosis. BACK: no cervical, thoracic, lumbar midline tenderness. Moves all extremities in full range of motion. NEUROLOGICAL: Alert but difficult to get history from the patient. Oriented to person and place but not events. Normal speech. Cranial nerves II through XII grossly intact. PSYCH: restless SKIN: Warm, dry, normal turgor. No rashes or lesions noted. Course - Re-evaluation Re-evalutation: 03/25/19 21:15 Patient is increasingly agitated as he begins to wake up more, his heart rate is in the 120s now, he appears to be hallucinating, he is making motions as if he is smoking a cigarette and then he is tapping his fingers as if he is tapping off the end of a cigar or cigarette over the side of his bed. Patient had to be placed in soft restraints because he is pulling everything off (to protect the IV). Giving 10 mg IV Valium. Work-up pending including a CT of the head because of reported headache and seizure. Dr. Coleman made aware. After the additional Valium patient's tachycardia did resolve. Patient become much more calm, he is still awake, he is actually cooperative. CAT scan of head unremarkable. Chest x-ray unremarkable. CBC, chemistry showing leukocytosis and noted hyponatremia with sodium of 118. Starting on sodium chloride replacement at 125 ml/hr. patient will require ICU admission. I still do not have a urinalysis. Alcohol is negative. Giving thiamine and folic acid. Discussed with patient at bedside. He states states he has a headache but he has no other complaints. He appears much improved from initially. 03/25/19 Dr. Villanueva, hospitalist, has seen the patient and accepted patient to the ICU. - Vital Signs Vital signs: Temp Pulse Resp BP Pulse Ox 22 H 101/47 L 97 03/26/19 03:01 03/26/19 03:01 03/26/19 03:01 - Laboratory Result Diagrams: 03/25/19 20:12 03/25/19 20:12 Laboratory results interpreted by me: 03/25/19 03/25/19 20:12 20:12 WBC 15.5 H RBC 4.17 L Hgb 13.2 L Lymph % (Auto) 7.1 L Absolute Neuts (auto) 13.4 H Seg Neutrophils % 86.0 H Sodium 118.2 L* Chloride 82 L Carbon Dioxide 20 L BUN 3 L Glucose 128 H AST 121 H Critical Care Note - Critical Care Note Total time excluding time spent on procedures (mins): 35 - Seizure, alcohol wi thdrawal, hyponatremia Comments: Please allow 35 minutes of critical care time for evaluation and management of patient with recent seizure, alcohol withdrawal, hyponatremia. Multiple re- evaluations performed. Time spent reviewing previous records. Interventions including IV Valium and addressing hyponatremia. Consultation and admission to the ICU. Discharge - Discharge Clinical Impression: Seizure, Hyponatremia Alcohol withdrawal Qualifiers: Complication of substance-induced condition: with unspecified complication Qualified Code(s): F10.239 - Alcohol dependence with withdrawal, unspecified Condition: Serious Disposition: ADMITTED INPATIENT Admitting Provider: Rich (Hospitalist) Unit Admitted: ICU
[2019-03-25 21:02] LABS: ABSOLUTE EOSINOPHILS # (AUTO) 0.1 10^3/uL (0.0-0.6); ABSOLUTE LYMPHOCYTES (AUTO) 1.1 10^3/uL (0.5-4.7); ABSOLUTE NEUT (AUTO) 13.4 10^3/uL (1.7-8.2); BASOPHILS % (AUTO) 0.3 % (0-2); EOSINOPHILS % (AUTO) 0.4 % (0-6); HEMATOCRIT 38.2 % (37.9-51.0); HEMOGLOBIN 13.2 g/dL (13.5-17.0); LYMPHOCYTES % (AUTO) 7.1 % (13-45); MEAN CORPUSCULAR HEMOGLOBIN 31.6 pg (27.0-33.4); MEAN CORPUSCULAR HGB CONC 34.5 g/dL (32.0-36.0); MEAN CORPUSCULAR VOLUME 92 fl (80-97); MONOCYTES % (AUTO) 6.2 % (3-13); PLATELET COUNT 282 10^3/uL (150-450); RED BLOOD COUNT 4.17 10^6/uL (4.35-5.55); RED CELL DISTRIBUTION WIDTH 13.2 % (11.5-14.0); TOTAL CELLS COUNTED % (AUTO) 100 %; WHITE BLOOD COUNT 15.5 10^3/uL (4.0-10.5)
[2019-03-25 21:29] LABS: ALBUMIN 4.8 g/dL (3.5-5.0); ALKALINE PHOSPHATASE 85 U/L (38-126); ASPARTATE AMINO TRANSFERASE 121 U/L (17-59); BILIRUBIN,DIRECT 0.3 mg/dL (0.0-0.4); BILIRUBIN,TOTAL 0.8 mg/dL (0.2-1.3); BLOOD UREA NITROGEN 3 mg/dL (7-20); CALCIUM 9.9 mg/dL (8.4-10.2); CARBON DIOXIDE 20 mmol/L (22-30); CHLORIDE 82 mmol/L (98-107); GLUCOSE 128 mg/dL (75-110); POTASSIUM 3.7 mmol/L (3.6-5.0); TOTAL PROTEIN 7.2 g/dL (6.3-8.2)
[2019-03-25 21:30] LABS: ANION GAP 16 (5-19)
[2019-03-25 21:35] LABS: ALCOHOL < 10 mg/dL (NONE DETECTED)
[2019-03-25] MEDS: NORMAL SALINE 1000 ML 1,000 ML IV PRN (22:01)
--- NOTE | 2019-03-25 22:07 | RADIOLOGY REPORT (SQ) ---
EXAM DESCRIPTION: XR CHEST 1 VIEW COMPLETED DATE/TME: 03/25/2019 20:57 CLINICAL HISTORY: 33 years, Male, AMS COMPARISON: 02/07/2019. NUMBER OF VIEWS: 1 TECHNIQUE: Single view, AP portable chest was obtained. LIMITATIONS: None. FINDINGS: Unremarkable cardiac and mediastinal silhouette. Heart size is normal. Lungs are clear without focal opacity, pneumothorax or pleural effusions. The visualized bones are within normal limits. IMPRESSION: No acute cardiopulmonary abnormalities. copyright 2010 [employer]- All Rights Reserved
[2019-03-25] MEDS ORDERED: THIAMINE HCL 100 MG, FOLIC ACID 1 MG in NORMAL SALINE 250 ML IV ONE (22:29)
[2019-03-25] MEDS ORDERED: THIAMINE HCL INJ 200 MG/2 ML VIAL ONE ×2 (22:41→22:46)
--- NOTE | 2019-03-25 22:45 | RADIOLOGY REPORT (SQ) ---
EXAM DESCRIPTION: CT HEAD WITHOUT IV CONTRAST COMPLETED DATE/TME: 03/25/2019 20:57 CLINICAL HISTORY: 33 years, Male, headache, ETOH, seizure COMPARISON: Prior study from 06/25/2018. TECHNIQUE: Noncontrast CT of head was performed. Coronal and sagittal reformations were created. Images stored on PACS. All CT scanners at this facility use dose modulation, iterative reconstruction, and/or weight based dosing when appropriate to reduce radiation dose to as low as reasonably achievable (ALARA). [facility]: Dose Right [facility]: CareDose [facility]: Dose Right [facility]: Teradose 4D [facility]: Switch Identity [employer]ance LIMITATIONS: None. FINDINGS: Brain parenchyma is normal in attenuation. No acute intracranial hemorrhage, mass effect, or extra-axial fluid is seen. The ventricles, sulci, and basilar cisterns are normal in size and configuration. Globes and orbits are normal. Paranasal sinuses and mastoid air cells are clear. There are no depressed skull fractures. IMPRESSION: No acute intracranial abnormality. TECHNICAL DOCUMENTATION: Quality ID # [id number]: Final reports with documentation of one or more dose reduction techniques (e.g., Automated exposure control, adjustment of the mA and/or kV according to patient size, use of iterative reconstruction technique) copyright 2010 [employer]- All Rights Reserved
[2019-03-25] MEDS ORDERED: FOLIC ACID INJ 5 MG/1 ML 10 ML VIAL ONE (22:46)
[2019-03-25] MEDS ORDERED: FUROSEMIDE INJ/PF 20 MG/2 ML SDV IV ONE (23:25)
[2019-03-25] MEDS ORDERED: LORAZEPAM INJ 2 MG/1 ML VIAL IV PRN (23:28)
[2019-03-25] MEDS ORDERED: MAGNESIUM HYDROXIDE SUSP 30 ML UDCUP PO PRN (23:28)
[2019-03-25] MEDS ORDERED: MAG HYDROX/AL HYDROX/SIMETH SUSP 30 ML UDCUP PO PRN (23:28)
[2019-03-25] MEDS ORDERED: IPRATROPIUM/ALBUTEROL 0.5-2.5 MG/3 ML AMPUL NEB PRN (23:28)
[2019-03-25 23:49] LABS: APPEARANCE,URINE CLEAR; BILIRUBIN,URINE NEGATIVE (NEGATIVE); COLOR,URINE YELLOW; GLUCOSE, URINE NEGATIVE (NEGATIVE); KETONES,URINE 20 mg/dL (NEGATIVE); LEUKOCYTE ESTERASE,URINE NEGATIVE (NEGATIVE); NITRITE,URINE NEGATIVE (NEGATIVE); PROTEIN,URINE NEGATIVE (NEGATIVE); URINE SPECIFIC GRAVITY 1.008; UROBILINOGEN,URINE NEGATIVE mg/dL (<2.0)
[2019-03-26 00:07] LABS: URINE AMPHETAMINES SCREEN NEGATIVE; URINE BARBITURATES SCREEN NEGATIVE; URINE BENZODIAZEPINES SCREEN UNCONFIRMED POSITIVE; URINE COCAINE SCREEN NEGATIVE; URINE MARIJUANA (THC) SCREEN NEGATIVE; URINE METHADONE SCREEN NEGATIVE; URINE PHENCYCLIDINE SCREEN NEGATIVE
[2019-03-26] MEDS: POTASSI CL 20 MEQ/50 ML RIDER 20 MEQ/50 ML RTUPB IV SCH ×2 (00:58→03:08)
[2019-03-26 02:59] LABS: PHOSPHORUS 3.7 mg/dL (2.5-4.5)
[2019-03-26 05:19] LABS: ANION GAP 11 (5-19); BLOOD UREA NITROGEN 3 mg/dL (7-20); CALCIUM 9.1 mg/dL (8.4-10.2); CARBON DIOXIDE 22 mmol/L (22-30); CHLORIDE 90 mmol/L (98-107); GLUCOSE 114 mg/dL (75-110); POTASSIUM 3.8 mmol/L (3.6-5.0)
[2019-03-26] MEDS: NORMAL SALINE 1000 ML 1,000 ML IV PRN ×2 (05:57→18:50)
[2019-03-26] MEDS: DIAZEPAM 5 MG TABLET PO SCH ×3 (06:06→21:27)
--- NOTE | 2019-03-26 06:09 | PDOC H&P ---
History of Present Illness Admission Date/PCP: 03/25/19 23:13 PRISCILLA BOLAÑOS MD Patient complains of: Seizure History of Present Illness: ANGIE GUTIÉRREZ is a 33 year old male with a past medical history of depression, COPD, tobacco and severe dependence and withdrawal seizure presents combative and post ictal following a seizure. In the emergency room is found to have leukocytosis and hyponatremia of 118. He receives Valium and is awake and alert denying nausea. Patient recently started Prozac. Past Medical History Cardiac Medical History: Reports: Hypertension Denies: Coronary Artery Disease, Myocardial Infarction Pulmonary Medical History: Reports: Asthma, Bronchitis, Chronic Obstructive Pulmonary Disease (COPD) Denies: Pneumonia Neurological Medical History: Reports: Migraine, Seizures - With hypoglycemia and alcohol withdrawal Endocrine Medical History: Denies: Diabetes Mellitus Type 1, Diabetes Mellitus Type 2 GI Medical History: Reports: Gastroesophageal Reflux Disease, Hiatal Hernia - hernia Musculoskeltal Medical History: Reports: Arthritis - Back, bigg knees Denies: Gout Skin Medical History: Denies: Eczema, Psoriasis Psychiatric Medical History: Reports: Alcohol Dependency, Depression, Tobacco Dependency Hematology: Denies: Anemia, Bleeding Tendencies Past Surgical History Past Surgical History: Reports: Herniorrhaphy - Right inguinal Social History Information Source: Patient, [facility] Records Lives with: Alone Smoking Status: Unknown if Ever Smoked Frequency of Alcohol Use: Heavy Hx Recreational Drug Use: No Drugs: None Hx Prescription Drug Abuse: No - Advance Directive Resuscitation Status: Full Code Family History Family History: CAD, DM, Hypertension Parental Family History Reviewed: Yes Children Family History Reviewed: Yes Sibling(s) Family History Reviewed.: Yes Medication/Allergy Home Medications: Albuterol Sulfate [Proair Respiclick] 2 puff IH ASDIR PRN 02/11/19 Amlodipine Besylate [Norvasc 5 mg Tablet] 5 mg PO DAILY 02/11/19 Diazepam [Valium 2 mg Tablet] 5 mg PO ASDIR PRN 02/11/19 Fluoxetine HCl [Prozac 20 mg Capsule] 20 mg PO DAILY 02/11/19 Omeprazole 40 mg PO DAILY 02/11/19 Ranitidine HCl 150 mg PO DAILY 02/11/19 Omeprazole Magnesium [Prilosec Otc] 20 mg PO DAILY #15 tablet. 02/22/19 Allergies/Adverse Reactions: No Known Allergies Allergy (Verified 03/25/19 20:56) Review of Systems Constitutional: PRESENT: as per HPI, anorexia, fatigue, weakness. ABSENT: chills, fever(s), headache(s), weight gain, weight loss Eyes: ABSENT: visual disturbances Ears: ABSENT: hearing changes Cardiovascular: ABSENT: chest pain, dyspnea on exertion, edema, orthropnea, palpitations Respiratory: ABSENT: cough, hemoptysis Gastrointestinal: ABSENT: abdominal pain, constipation, diarrhea, hematemesis, hematochezia, nausea, vomiting Genitourinary: ABSENT: dysuria, hematuria Musculoskeletal: ABSENT: joint swelling Integumentary: ABSENT: rash, wounds Neurological: ABSENT: abnormal gait, abnormal speech, confusion, dizziness, focal weakness, syncope Psychiatric: ABSENT: anxiety, depression, homidical ideation, suicidal ideation Endocrine: ABSENT: cold intolerance, heat intolerance, polydipsia, polyuria Hematologic/Lymphatic: ABSENT: easy bleeding, easy bruising Physical Exam Vital Signs: Temp Pulse Resp BP Pulse Ox 18 98/45 L 96 03/26/19 05:01 03/26/19 05:01 03/26/19 05:01 Intake & Output 03/24/19 03/25/19 03/26/19 11:59 11:59 11:59 Intake Total 1351.2 Output Total 1000 Balance 351.2 Weight 59.4 kg General appearance: PRESENT: cooperative, disheveled, mild distress, thin, well- developed, other - Chronically ill appearing much older than stated age. ABSENT: well-nourished Head exam: PRESENT: atraumatic, normocephalic Eye exam: PRESENT: conjunctiva pink, EOMI, PERRLA. ABSENT: scleral icterus Ear exam: PRESENT: normal external ear exam Mouth exam: PRESENT: moist, tongue midline Neck exam: ABSENT: carotid bruit, JVD, lymphadenopathy, thyromegaly Respiratory exam: PRESENT: clear to auscultation bigg. ABSENT: rales, rhonchi, wheezes Cardiovascular exam: PRESENT: tachycardia. ABSENT: diastolic murmur, rubs, systolic murmur Pulses: PRESENT: normal dorsalis pedis pul Vascular exam: PRESENT: normal capillary refill GI/Abdominal exam: PRESENT: normal bowel sounds, soft. ABSENT: distended, guarding, mass, organolmegaly, rebound, tenderness Rectal exam: PRESENT: deferred Extremities exam: PRESENT: full ROM. ABSENT: calf tenderness, clubbing, pedal edema Neurological exam: PRESENT: alert, awake, oriented to person, oriented to place, oriented to time, oriented to situation, CN II-XII grossly intact. ABSENT: motor sensory deficit Psychiatric exam: PRESENT: appropriate affect, normal mood. ABSENT: homicidal ideation, suicidal ideation Skin exam: PRESENT: dry, intact, warm. ABSENT: cyanosis, rash Results Laboratory Results: 03/25/19 20:12 03/26/19 02:06 03/25/19 03/25/19 03/25/19 20:12 20:12 23:25 WBC 15.5 H RBC 4.17 L Hgb 13.2 L Hct 38.2 MCV 92 MCH 31.6 MCHC 34.5 RDW 13.2 Plt Count 282 Seg Neutrophils % 86.0 H Sodium 118.2 L* Potassium 3.7 Chloride 82 L Carbon Dioxide 20 L Anion Gap 16 BUN 3 L Creatinine 0.81 Est GFR ( Amer) > 60 Glucose 128 H Calcium 9.9 Phosphorus Magnesium 1.6 Total Bilirubin 0.8 AST 121 H Alkaline Phosphatase 85 Total Protein 7.2 Albumin 4.8 Lipase 104.0 Urine Color YELLOW Urine Appearance CLEAR Urine pH 7.0 Ur Specific [place] 1.008 Urine Protein NEGATIVE Urine Glucose (UA) NEGATIVE Urine Ketones 20 H Urine Blood LARGE H Urine Nitrite NEGATIVE Ur Leukocyte Esterase NEGATIVE Urine WBC (Auto) 0 03/26/19 03/26/19 02:06 02:06 WBC RBC Hgb Hct MCV MCH MCHC RDW Plt Count Seg Neutrophils % Sodium 122.8 L Potassium 3.8 Chloride 90 L Carbon Dioxide 22 Anion Gap 11 BUN 3 L Creatinine 0.67 Est GFR ( Amer) > 60 Glucose 114 H Calcium 9.1 Phosphorus 3.7 Magnesium 1.6 Total Bilirubin AST Alkaline Phosphatase Total Protein Albumin Lipase 54.5 Urine Color Urine Appearance Urine pH Ur Specific [place] Urine Protein Urine Glucose (UA) Urine Ketones Urine Blood Urine Nitrite Ur Leukocyte Esterase Urine WBC (Auto) Impressions: Chest X-Ray 03/25/19 20:57 IMPRESSION: No acute cardiopulmonary abnormalities. copyright 2011 [employer]- All Rights Reserved Head CT 03/25/19 20:57 IMPRESSION: No acute intracranial abnormality. TECHNICAL DOCUMENTATION: Quality ID # 436: Final reports with documentation of one or more dose reduction techniques (e.g., Automated exposure control, adjustment of the mA and/or kV according to patient size, use of iterative reconstruction technique) copyright 2011 [employer]- All Rights Reserved Assessment and Plan - Diagnosis (1) Seizure Is this a current diagnosis for this admission?: Yes Plan: Most likely secondary to acute alcohol withdrawal, alcohol level undetectable. Continue by benzodiazepine. (2) Alcohol withdrawal Qualifiers: Complication of substance-induced condition: with unspecified complication Qualified Code(s): F10.239 - Alcohol dependence with withdrawal, unspecified Is this a current diagnosis for this admission?: Yes Plan: Thiamine, folate, Valium and Ativan as needed (3) Hyponatremia Is this a current diagnosis for this admission?: Yes Plan: Secondary to volume overload, fluid restriction trial IV Lasix, follow-up chemistry. (4) Depression Is this a current diagnosis for this admission?: Yes Plan: Discontinue Prozac secondary to hyponatremia, trial trazodone - Time Time Spent with patient: 25-34 minutes
[2019-03-26 06:27] LABS: ABSOLUTE EOSINOPHILS # (AUTO) 0.1 10^3/uL (0.0-0.6); ABSOLUTE LYMPHOCYTES (AUTO) 1.3 10^3/uL (0.5-4.7); ABSOLUTE MONOCYTES (AUTO) 0.8 10^3/uL (0.1-1.4); ABSOLUTE NEUT (AUTO) 6.5 10^3/uL (1.7-8.2); BASOPHILS % (AUTO) 0.2 % (0-2); HEMATOCRIT 40.4 % (37.9-51.0); HEMOGLOBIN 13.9 g/dL (13.5-17.0); LYMPHOCYTES % (AUTO) 14.7 % (13-45); MEAN CORPUSCULAR HEMOGLOBIN 31.7 pg (27.0-33.4); MEAN CORPUSCULAR HGB CONC 34.5 g/dL (32.0-36.0); MEAN CORPUSCULAR VOLUME 92 fl (80-97); MONOCYTES % (AUTO) 9.4 % (3-13); PLATELET COUNT 270 10^3/uL (150-450); RED CELL DISTRIBUTION WIDTH 13.2 % (11.5-14.0); SEGMENTED NEUTROPHILS % (AUTO) 74.7 % (42-78); TOTAL CELLS COUNTED % (AUTO) 100 %; WHITE BLOOD COUNT 8.8 10^3/uL (4.0-10.5)
[2019-03-26] MEDS: HEPARIN SOD (PORCINE) 5,000 UNIT/ML 1 ML VIAL SUBCUT SCH ×3 (06:29→21:27)
[2019-03-26 06:44] LABS: ANION GAP 9 (5-19); CALCIUM 8.9 mg/dL (8.4-10.2); CARBON DIOXIDE 21 mmol/L (22-30); CHLORIDE 99 mmol/L (98-107); GLUCOSE 82 mg/dL (75-110)
[2019-03-26 06:49] LABS: BLOOD UREA NITROGEN < 2 mg/dL (7-20)
[2019-03-26] MEDS: IPRATROPIUM/ALBUTEROL 0.5-2.5 MG/3 ML AMPUL NEB SCH ×2 (08:35→20:47)
--- NOTE | 2019-03-26 09:09 | EKG REPORT ---
SEVERITY:- ABNORMAL ECG - SINUS TACHYCARDIA NONSPECIFIC INTRAVENTRICULAR CONDUCTION DELAY BORDERLINE INFERIOR Q WAVES : Confirmed by: Linus Malin 26-Mar-2019 09:08:56
[2019-03-26] MEDS: THIAMINE HCL 100 MG, FOLIC ACID 1 MG in NORMAL SALINE 250 ML IV SCH (09:27)
--- NOTE | 2019-03-26 10:19 | ER Document Report ---
Doctor's Note Notes: 03/26/19 10:18 I have evaluated this pt. this am and he has no c/o at this time. He feels all of his needs are being met and his physical exam is normal. He is awaiting disposition per mental health.
--- NOTE | 2019-03-26 12:26 | PDOC PROGRESS REPORT ---
Subjective Progress Note for:: 03/26/19 Subjective:: This is a 33 year old male with a past medical history of depression, COPD, tobacco and severe dependence and withdrawal seizure who presented with combativeness and post ictal state following a seizure. In the emergency room is found to have leukocytosis and hyponatremia of 118. He was recently started on Prozac. Upon encounter, patient was easily arousable. No recurrence of seizure overnight. He is coherent and well-oriented. He says he drinks 5 beers/day and drank 3 bottles of beer 2 days ago. Denies acute complaints, delusions or hallucinations. Discussed with mental health provider as well on bedside, patient is amenable to going to [facility] facility on upon discharge. Reason For Visit: ALCOHOL WITHDRAWAL,SEIZURE,HYPONATREMIA Physical Exam Vital Signs: Temp Pulse Resp BP Pulse Ox 96 17 112/73 92 03/26/19 08:00 03/26/19 11:00 03/26/19 09:01 03/26/19 11:00 Intake & Output 03/25/19 03/26/19 03/27/19 06:59 06:59 06:59 Intake Total 1351.2 251.2 Output Total 1000 2000 Balance 351.2 -1748.8 Weight 130 lb 15.273 oz General appearance: PRESENT: no acute distress, well-developed, well-nourished Head exam: PRESENT: atraumatic, normocephalic Eye exam: PRESENT: conjunctiva pink, EOMI, PERRLA. ABSENT: scleral icterus Ear exam: PRESENT: normal external ear exam Mouth exam: PRESENT: moist, tongue midline Neck exam: ABSENT: carotid bruit, JVD, lymphadenopathy, thyromegaly Respiratory exam: PRESENT: clear to auscultation bigg. ABSENT: rales, rhonchi, wheezes Cardiovascular exam: PRESENT: RRR. ABSENT: diastolic murmur, rubs, systolic murmur Pulses: PRESENT: normal dorsalis pedis pul GI/Abdominal exam: PRESENT: normal bowel sounds, soft. ABSENT: distended, gu arding, mass, organolmegaly, rebound, tenderness Rectal exam: PRESENT: deferred Extremities exam: PRESENT: full ROM. ABSENT: calf tenderness, clubbing, pedal edema Neurological exam: PRESENT: alert, awake, oriented to person, oriented to place, oriented to time, oriented to situation, CN II-XII grossly intact. ABSENT: mot or sensory deficit Results Laboratory Results: 03/26/19 06:20 03/26/19 06:20 03/25/19 03/25/19 03/25/19 20:12 20:12 23:25 WBC 15.5 H RBC 4.17 L Hgb 13.2 L Hct 38.2 MCV 92 MCH 31.6 MCHC 34.5 RDW 13.2 Plt Count 282 Seg Neutrophils % 86.0 H Sodium 118.2 L* Potassium 3.7 Chloride 82 L Carbon Dioxide 20 L Anion Gap 16 BUN 3 L Creatinine 0.81 Est GFR ( Amer) > 60 Glucose 128 H Calcium 9.9 Phosphorus Magnesium 1.6 Total Bilirubin 0.8 AST 121 H Alkaline Phosphatase 85 Total Protein 7.2 Albumin 4.8 Lipase 104.0 Urine Color YELLOW Urine Appearance CLEAR Urine pH 7.0 Ur Specific [place] 1.008 Urine Protein NEGATIVE Urine Glucose (UA) NEGATIVE Urine Ketones 20 H Urine Blood LARGE H Urine Nitrite NEGATIVE Ur Leukocyte Esterase NEGATIVE Urine WBC (Auto) 0 03/26/19 03/26/19 03/26/19 02:06 02:06 06:20 WBC 8.8 RBC 4.40 Hgb 13.9 Hct 40.4 MCV 92 MCH 31.7 MCHC 34.5 RDW 13.2 Plt Count 270 Seg Neutrophils % 74.7 Sodium 122.8 L Potassium 3.8 Chloride 90 L Carbon Dioxide 22 Anion Gap 11 BUN 3 L Creatinine 0.67 Est GFR ( Amer) > 60 Glucose 114 H Calcium 9.1 Phosphorus 3.7 Magnesium 1.6 Total Bilirubin AST Alkaline Phosphatase Total Protein Albumin Lipase 54.5 Urine Color Urine Appearance Urine pH Ur Specific [place] Urine Protein Urine Glucose (UA) Urine Ketones Urine Blood Urine Nitrite Ur Leukocyte Esterase Urine WBC (Auto) 03/26/19 06:20 WBC RBC Hgb Hct MCV MCH MCHC RDW Plt Count Seg Neutrophils % Sodium 129.4 L Potassium 4.0 Chloride 99 Carbon Dioxide 21 L Anion Gap 9 BUN < 2 L Creatinine 0.73 Est GFR ( Amer) > 60 Glucose 82 Calcium 8.9 Phosphorus Magnesium Total Bilirubin AST Alkaline Phosphatase Total Protein Albumin Lipase Urine Color Urine Appearance Urine pH Ur Specific [place] Urine Protein Urine Glucose (UA) Urine Ketones Urine Blood Urine Nitrite Ur Leukocyte Esterase Urine WBC (Auto) Impressions: Chest X-Ray 03/25/19 20:57 IMPRESSION: No acute cardiopulmonary abnormalities. copyright 2010 [employer]- All Rights Reserved Head CT 03/25/19 20:57 IMPRESSION: No acute intracranial abnormality. TECHNICAL DOCUMENTATION: Quality ID # 436: Final reports with documentation of one or more dose reduction techniques (e.g., Automated exposure control, adjustment of the mA and/or kV according to patient size, use of iterative reconstruction technique) copyright 2010 [employer]- All Rights Reserved Assessment and Plan - Diagnosis (1) Alcohol withdrawal Qualifiers: Complication of substance-induced condition: with unspecified complication Qualified Code(s): F10.239 - Alcohol dependence with withdrawal, unspecified Is this a current diagnosis for this admission?: Yes Plan: Continue thiamine, folate, Valium and Ativan as needed. (2) Alcohol dependence Is this a current diagnosis for this admission?: Yes Plan: Discussed with mental health provider as well on bedside, patient is amenable to going to [facility] facility on upon discharge. (3) Seizure Is this a current diagnosis for this admission?: Yes Plan: Most likely secondary to acute alcohol withdrawal. Possible that hyponatremia contributed to it. (4) Hyponatremia Is this a current diagnosis for this admission?: Yes Plan: Improved. He appears euvolemic. Will check urine sodium and osmolarities. Hold Prozac for now. - Time Time Spent with patient: 25-34 minutes
--- NOTE | 2019-03-26 13:47 | PDOC CONSULTATION ---
Consultation-Blank Consultation: Reason for consult: Attending physician request Alcohol withdrawal No medication recommendations at this time Impression\plan: Patient is cleared from acute psychiatric services. He does not meet IVC criteria per [place] GS 120 2C. Patient denies suicidal and homicidal ideation. He is not demonstrating any behaviors of responding to internal stimuli i.e. organized linear thought process, maintains good eye contact, and normal conversational speech. Patient discloses that he has been decreasing the amount that he typically had been drinking. He has never gone through detox before and did not even realize that he was shaking because of detox. Patient does show some hesitancy when discussing some's abuse treatment. He does agree to try going to [facility] for continued assistance in detox. Clinician spoke with [facility] who reports the patient must be 24 hours past his last seizure before he can be admitted. Tomorrow 03/27/2019, the behavioral health team can assist in the process of transferring to a voluntary bed at [facility]. Dr. Aaron was consulted to care management of this patient; attending physicians in agreement with recommendations and disposition.
[2019-03-26 13:53] LABS: URINE SODIUM 53 mmol/L (30-90)
[2019-03-26 14:13] LABS: OSMOLALITY,URINE 254 mOsm/kg (300-900)
[2019-03-26 14:51] LABS: ANION GAP 5 (5-19); BLOOD UREA NITROGEN 3 mg/dL (7-20); CALCIUM 8.9 mg/dL (8.4-10.2); CARBON DIOXIDE 23 mmol/L (22-30); CHLORIDE 106 mmol/L (98-107); GLUCOSE 120 mg/dL (75-110); POTASSIUM 4.1 mmol/L (3.6-5.0)
[2019-03-26] MEDS: ACETAMINOPHEN 325 MG TABLET PO PRN (16:49)
[2019-03-26] MEDS ORDERED: PANTOPRAZOLE SODIUM 40 MG TABLET.DR PO ONE (17:45)
[2019-03-26] MEDS ORDERED: NORMAL SALINE 1000 ML 1,000 ML IV PRN (20:12)
[2019-03-26 23:05] LABS: ANION GAP 6 (5-19); BLOOD UREA NITROGEN 3 mg/dL (7-20); CALCIUM 8.7 mg/dL (8.4-10.2); CARBON DIOXIDE 25 mmol/L (22-30); CHLORIDE 104 mmol/L (98-107); GLUCOSE 102 mg/dL (75-110); POTASSIUM 3.5 mmol/L (3.6-5.0)
[2019-03-26] MEDS ORDERED: DIAZEPAM 5 MG TABLET PO ONE (23:45)
[2019-03-27] MEDS: HEPARIN SOD (PORCINE) 5,000 UNIT/ML 1 ML VIAL SUBCUT SCH ×2 (05:22→13:24)
[2019-03-27] MEDS: DIAZEPAM 5 MG TABLET PO SCH ×2 (05:22→14:11)
[2019-03-27] MEDS ORDERED: PANTOPRAZOLE SODIUM 40 MG TABLET.DR PO SCH (06:00)
[2019-03-27 06:26] LABS: ANION GAP 6 (5-19); BLOOD UREA NITROGEN 3 mg/dL (7-20); CALCIUM 8.9 mg/dL (8.4-10.2); CARBON DIOXIDE 25 mmol/L (22-30); CHLORIDE 106 mmol/L (98-107); GLUCOSE 86 mg/dL (75-110)
[2019-03-27] MEDS: IPRATROPIUM/ALBUTEROL 0.5-2.5 MG/3 ML AMPUL NEB SCH (08:04)
[2019-03-27] MEDS: ACETAMINOPHEN 325 MG TABLET PO PRN ×2 (09:23→13:24)
[2019-03-27] MEDS: THIAMINE HCL 100 MG, FOLIC ACID 1 MG in NORMAL SALINE 250 ML IV SCH (09:41)
[2019-03-27] MEDS ORDERED: AZITHROMYCIN 250 MG TABLET PO ONE (11:15)
[2019-03-27 14:02] LABS: ANION GAP 6 (5-19); BLOOD UREA NITROGEN < 2 mg/dL (7-20); CALCIUM 9.1 mg/dL (8.4-10.2); CARBON DIOXIDE 25 mmol/L (22-30); CHLORIDE 103 mmol/L (98-107); GLUCOSE 116 mg/dL (75-110); POTASSIUM 4.1 mmol/L (3.6-5.0)
[2019-03-27] MEDS ORDERED: KETOROLAC TROMETHAMINE INJ/PF 30 MG/1 ML SDV IV ONE (15:00)
[2019-03-27 17:11] VITALS: BP 126/69
--- NOTE | 2019-03-27 18:37 | PDOC DISCHARGE SUMMARY ---
Impression - Admit/DC Date/PCP Admission Date/Primary Care Provider: 03/25/19 23:13 PRISCILLA BOLAÑOS MD Discharge Date: 03/27/19 - Discharge Diagnosis (1) Alcohol withdrawal Is this a current diagnosis for this admission?: Yes (2) Alcohol dependence Is this a current diagnosis for this admission?: Yes (3) Seizure Is this a current diagnosis for this admission?: Yes (4) Hyponatremia Is this a current diagnosis for this admission?: Yes - Additional Information Resuscitation Status: Full Code Discharge Diet: Regular Discharge Activity: Activity As Tolerated Referrals: PRISCILLA BOLAÑOS MD [Primary Care Provider] - Follow up as needed Prescriptions: Azithromycin 250 mg PO DAILY 2 Days #2 tablet Home Medications: Omeprazole 40 mg PO DAILY 02/11/19 Ranitidine HCl 150 mg PO BID 02/11/19 Albuterol Sulfate [Proair HFA Inhalation Aerosol 8.5 gm MDI] 1 puff IH Q4 PRN 03/26/19 Diazepam [Valium 5 mg Tablet] 5 mg PO HSP PRN 03/26/19 Lisinopril [Prinivil] 20 mg PO DAILY 03/26/19 Azithromycin 250 mg PO DAILY 2 Days #2 tablet 03/27/19 History of Present Illiness History of Present Illness: Admitting hospitalist's H&P: ANGIE GUTIÉRREZ is a 33 year old male with a past medical history of depression, COPD, tobacco and severe dependence and withdrawal seizure presents combative and post ictal following a seizure. In the emergency room is found to have leukocytosis and hyponatremia of 118. He receives Valium and is awake and alert denying nausea. Patient recently started Prozac. Hospital Course Hospital Course: This is a 33 year old male with a past medical history of depression, COPD, tobacco and severe dependence and withdrawal seizure who presented with combativeness and post ictal state following a seizure. In the emergency room is found to have leukocytosis and hyponatremia of 118. He was recently started on Prozac. Patient was started on CIWA protocol. He did not have any recurrence of seizure since admission. He is coherent and well-oriented. He says he drinks 5 beers/day and drank 3 bottles of beer 2 days ago. Denies acute complaints, delusions or hallucinations. Discussed with mental health provider as well on bedside, patient is amenable to going to [facility]. He will be discharged to [facility]. Physical Exam Vital Signs: Temp Pulse Resp BP Pulse Ox 98.2 F 78 16 126/69 H 99 03/27/19 16:06 03/27/19 16:06 03/27/19 16:06 03/27/19 16:06 03/27/19 16:06 Intake & Output 03/26/19 03/27/19 03/28/19 06:59 06:59 06:59 Intake Total 1351.2 1251.2 994.2 Output Total 1000 2650 Balance 351.2 -1398.8 994.2 Weight 130 lb 15.273 oz 129 lb 13.636 oz General appearance: PRESENT: no acute distress, well-developed, well-nourished Head exam: PRESENT: atraumatic, normocephalic Eye exam: PRESENT: conjunctiva pink, EOMI, PERRLA. ABSENT: scleral icterus Ear exam: PRESENT: normal external ear exam Mouth exam: PRESENT: moist, tongue midline Neck exam: ABSENT: carotid bruit, JVD, lymphadenopathy, thyromegaly Respiratory exam: PRESENT: clear to auscultation bigg. ABSENT: rales, rhonchi, wheezes Cardiovascular exam: PRESENT: RRR. ABSENT: diastolic murmur, rubs, systolic murmur Pulses: PRESENT: normal dorsalis pedis pul GI/Abdominal exam: PRESENT: normal bowel sounds, soft. ABSENT: distended, guarding, mass, organolmegaly, rebound, tenderness Rectal exam: PRESENT: deferred Extremities exam: PRESENT: full ROM. ABSENT: calf tenderness, clubbing, pedal edema Neurological exam: PRESENT: alert, awake, oriented to person, oriented to place, oriented to time, oriented to situation, CN II-XII grossly intact. ABSENT: motor sensory deficit Results Laboratory Results: WBC 8.8 10^3/uL (4.0-10.5) 03/26/19 06:20 RBC 4.40 10^6/uL (4.35-5.55) 03/26/19 06:20 Hgb 13.9 g/dL (13.5-17.0) 03/26/19 06:20 Hct 40.4 % (37.9-51.0) 03/26/19 06:20 MCV 92 fl (80-97) 03/26/19 06:20 MCH 31.7 pg (27.0-33.4) 03/26/19 06:20 MCHC 34.5 g/dL (32.0-36.0) 03/26/19 06:20 RDW 13.2 % (11.5-14.0) 03/26/19 06:20 Plt Count 270 10^3/uL (150-450) 03/26/19 06:20 Lymph % (Auto) 14.7 % (13-45) 03/26/19 06:20 [place] % (Auto) 9.4 % (3-13) 03/26/19 06:20 Eos % (Auto) 1.0 % (0-6) 03/26/19 06:20 Baso % (Auto) 0.2 % (0-2) 03/26/19 06:20 Absolute Neuts (auto) 6.5 10^3/uL (1.7-8.2) 03/26/19 06:20 Absolute Lymphs (auto) 1.3 10^3/uL (0.5-4.7) 03/26/19 06:20 Absolute Monos (auto) 0.8 10^3/uL (0.1-1.4) 03/26/19 06:20 Absolute Eos (auto) 0.1 10^3/uL (0.0-0.6) 03/26/19 06:20 Absolute Basos (auto) 0.0 10^3/uL (0.0-0.2) 03/26/19 06:20 Seg Neutrophils % 74.7 % (42-78) 03/26/19 06:20 Sodium 134.1 mmol/L (137-145) L 03/27/19 13:10 Potassium 4.1 mmol/L (3.6-5.0) 03/27/19 13:10 Chloride 103 mmol/L (98-107) 03/27/19 13:10 Carbon Dioxide 25 mmol/L (22-30) 03/27/19 13:10 Anion Gap 6 (5-19) 03/27/19 13:10 BUN < 2 mg/dL (7-20) L 03/27/19 13:10 Creatinine 0.67 mg/dL (0.52-1.25) 03/27/19 13:10 Est GFR ( Amer) > 60 (>60) 03/27/19 13:10 Est GFR (MDRD) Non-Af > 60 (>60) 03/27/19 13:10 Glucose 116 mg/dL (75-110) H 03/27/19 13:10 Serum Osmolality 247 mOsm/kg (275-301) L 03/26/19 02:06 Calcium 9.1 mg/dL (8.4-10.2) 03/27/19 13:10 Phosphorus 3.7 mg/dL (2.5-4.5) 03/26/19 02:06 Magnesium 1.6 mg/dL (1.6-2.3) 03/26/19 02:06 Total Bilirubin 0.8 mg/dL (0.2-1.3) 03/25/19 20:12 Direct Bilirubin 0.3 mg/dL (0.0-0.4) 03/25/19 20:12 Neonat Total Bilirubin Not Reportable 03/25/19 20:12 Neonat Direct Bilirubin Not Reportable 03/25/19 20:12 Neonat Indirect Bili Not Reportable 03/25/19 20:12 AST 121 U/L (17-59) H 03/25/19 20:12 ALT 29 U/L (<50) 03/25/19 20:12 Alkaline Phosphatase 85 U/L (38-126) 03/25/19 20:12 Troponin I < 0.012 ng/mL 03/27/19 14:31 Total Protein 7.2 g/dL (6.3-8.2) 03/25/19 20:12 Albumin 4.8 g/dL (3.5-5.0) 03/25/19 20:12 Lipase 54.5 U/L (23-300) 03/26/19 02:06 Urine Color YELLOW 03/25/19 23:25 Urine Appearance CLEAR 03/25/19 23:25 Urine pH 7.0 (5.0-9.0) 03/25/19 23:25 Ur Specific [place] 1.008 03/25/19 23:25 Urine Protein NEGATIVE mg/dL (NEGATIVE) 03/25/19 23:25 Urine Glucose (UA) NEGATIVE mg/dL (NEGATIVE) 03/25/19 23:25 Urine Ketones 20 mg/dL (NEGATIVE) H 03/25/19 23:25 Urine Blood LARGE (NEGATIVE) H 03/25/19 23:25 Urine Nitrite NEGATIVE (NEGATIVE) 03/25/19 23:25 Urine Bilirubin NEGATIVE (NEGATIVE) 03/25/19 23:25 Urine Urobilinogen NEGATIVE mg/dL (<2.0) 03/25/19 23:25 Ur Leukocyte Esterase NEGATIVE (NEGATIVE) 03/25/19 23:25 Urine WBC (Auto) 0 /HPF 03/25/19 23:25 Urine Mucus (Auto) RARE /LPF 03/25/19 23:25 Urine Osmolality 254 mOsm/kg (300-900) L 03/25/19 23:25 Urine Sodium 53 mmol/L (30-90) 03/25/19 23:25 Urine Ascorbic Acid NEGATIVE (NEGATIVE) 03/25/19 23:25 Urine Opiates Screen NEGATIVE 03/25/19 23:25 Urine Methadone Screen NEGATIVE 03/25/19 23:25 Ur Barbiturates Screen NEGATIVE 03/25/19 23:25 Ur Phencyclidine Scrn NEGATIVE 03/25/19 23:25 Ur Amphetamines Screen NEGATIVE 03/25/19 23:25 U Benzodiazepines Scrn UNCONFIRMED POSITIVE 03/25/19 23:25 Urine Cocaine Screen NEGATIVE 03/25/19 23:25 U Marijuana (THC) Screen NEGATIVE 03/25/19 23:25 Serum Alcohol < 10 mg/dL (NONE DETECTED) 03/25/19 20:12 03/27/19 14:31 Troponin I < 0.012 Impressions: Chest X-Ray 03/25/19 20:57 IMPRESSION: No acute cardiopulmonary abnormalities. copyright 2011 [employer]- All Rights Reserved Head CT 03/25/19 20:57 IMPRESSION: No acute intracranial abnormality. TECHNICAL DOCUMENTATION: Quality ID # 436: Final reports with documentation of one or more dose reduction techniques (e.g., Automated exposure control, adjustment of the mA and/or kV according to patient size, use of iterative reconstruction technique) copyright 2011 [employer]- All Rights Reserved Stroke Is this a Stroke Patient?: No Acute Heart Failure - Is this a Heart Failure Patient?: No
--- NOTE | 2019-03-28 00:55 | EKG REPORT ---
SEVERITY:- BORDERLINE ECG - SINUS RHYTHM BORDERLINE T ABNORMALITIES, ANT-LAT LEADS : Confirmed by: Linus Malin 28-Mar-2019 00:54:28
== END 2019-03-27 16:50 | disposition home or self-care (01) | DRG 897 ==
LOC: ER 20:33 → EH 23:13 → 3S 03-26 16:15
PROVIDERS: ADMIT Internal Medicine; ATTEND Internal Medicine
DX: F10.239 Alcohol dependence with withdrawal, unspecified (principal); E87.1 Hypo-osmolality and hyponatremia; R55 Syncope and collapse; R51 Headache; I10 Essential (primary) hypertension; J44.9 Chronic obstructive pulmonary disease, unspecified; K21.9 Gastro-esophageal reflux disease without esophagitis; F32.9 Major depressive disorder, single episode, unspecified; F17.210 Nicotine dependence, cigarettes, uncomplicated; Y90.0 Blood alcohol level of less than 20 mg/100 ml; Z78.1 Physical restraint status; Z79.51 Long term (current) use of inhaled steroids; Z79.899 Other long term (current) drug therapy
CPT/HCPCS: 36415; 70450; 71045; 80048; 80053; 80307; 81001; 82962; 83690; 83735; 83930; 83935; 84100; 84300; 84484; 85025; 93005; 93010; 94640; 96365; 96375; 99291; J1644; J1885; J1940; J2060; J3360; J3411; J3480; J3490; J7030; J7050; J7620

== ENCOUNTER 2019-04-06 20:19 | Emergency (ER) | payer OTHER ==
[2019-04-06] MEDS ORDERED: ACETAMINOPHEN 325 MG TABLET PO ONE (20:50)
--- NOTE | 2019-04-06 20:52 | ER Document Report ---
ED Medical Screen (RME) - General Chief Complaint: Hemorrhoids Stated Complaint: MEDICATION REFILL Time Seen by Provider: 04/06/19 20:49 Primary Care Provider: PRISCILLA BOLAÑOS MD [Primary Care Provider] - Follow up as needed Mode of Arrival: Ambulatory Information source: Patient Notes: 33-year-old male presented to ED for continued hemorrhoid pain. He states he saw Dr. De Paz on Thursday and he banded his hemorrhoids and the pain has gotten worse. He states he gave him some kind of suppositories and he cannot use them and the pain is worse he would like someone else to look at his hemorrhoids. He does have a history of high blood pressure cholesterol anxiety reflux asthma seizures and hemorrhoids. He does drink 1-2 beer a day smokes a pack and a half of cigarettes a day and does not do any recreational drugs. 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 Patient is alert oriented respirations regular and unlabored speaking in full sentences. He states the reason for his visit today is mainly because his hemorrhoids are hurting so bad. I have greeted and performed a rapid initial assessment of this patient. A comprehensive ED assessment and evaluation of the patient, analysis of test results and completion of medical decision making process will be conducted by an additional ED providers. TRAVEL OUTSIDE OF THE [place] IN LAST 30 DAYS: No - Related Data Allergies/Adverse Reactions: No Known Allergies Allergy (Verified 04/06/19 20:45) Home Medications: omeprazole, ranitidine, diazepam, fluoxetine, amlodipine, naltrexone Past Medical History - Past Medical History Cardiac Medical History: Reports: Hx Hypertension Denies: Hx Coronary Artery Disease, Hx Heart Attack Pulmonary Medical History: Reports: Hx Asthma, Hx Bronchitis, Hx COPD Denies: Hx Pneumonia Neurological Medical History: Reports: Hx Migraine, Hx Seizures - With hypoglycemia and alcohol withdrawal. Denies: Hx Cerebrovascular Accident Endocrine Medical History: Denies: Hx Diabetes Mellitus Type 1, Hx Diabetes Mellitus Type 2 Renal/ Medical History: Denies: Hx Peritoneal Dialysis GI Medical History: Reports: Hx Gastroesophageal Reflux Disease, Hx Hiatal Hernia - hernia Musculoskeltal Medical History: Reports Hx Arthritis - Back, bigg knees, Denies H x Gout, Reports Hx Musculoskeletal Trauma Skin Medical History: Denies Hx Eczema, Denies Hx Psoriasis Psychiatric Medical History: Reports: Hx Anxiety, Hx Depression Past Surgical History: Reports: Hx Abdominal Surgery - hernia, Hx Herniorrhaphy - Right inguinal, Hx Inguinal Hernia - right - Immunizations Immunizations up to date: Yes Hx Diphtheria, Pertussis, Tetanus Vaccination: Yes - 2011 Doctor's Discharge - Discharge Referrals: PRISCILLA BOLAÑOS MD [Primary Care Provider] - Follow up as needed
--- NOTE | 2019-04-07 03:31 | ER Document Report ---
ED General - General Chief Complaint: Hemorrhoids Stated Complaint: MEDICATION REFILL Time Seen by Provider: 04/06/19 20:49 Primary Care Provider: [facility] [Provider Group] - Follow up as needed MARK EDWARDS MD [ACTIVE STAFF] - Follow up in 3-5 days Mode of Arrival: Ambulatory Notes: Patient is a 33-year-old male that comes to the emergency department with 2 complaints. First complaint is hemorrhoid pain, he states on Thursday he had these banded by Dr. Edwards, he states that have been hurting, he called the surgical office and they prescribed him suppositories which he picked up but he states that he is unable to get them in. He states he would like help getting this in. He also wants the area checked. Secondary complaint is he states he feels like he cannot stop shaking. He states he does have a history of alcohol abuse, he states his last drink was 3 days ago. He denies vomiting, he denies any other complaints at this time. Past medical history also includes asthma, seizures related to alcohol withdrawal, hypertension, anxiety, GERD. He smokes but denies recreational drugs. TRAVEL OUTSIDE OF THE [place] IN LAST 30 DAYS: No - Related Data Allergies/Adverse Reactions: No Known Allergies Allergy (Verified 04/06/19 20:45) Home Medications: omeprazole, ranitidine, diazepam, fluoxetine, amlodipine, naltrexone Past Medical History - General Information source: Patient - Social History Smoking Status: Current Every Day Smoker Chew tobacco use (# tins/day): No Frequency of alcohol use: daily 1 beer Drug Abuse: None Lives with: Alone Family History: CAD, DM, Hypertension Patient has suicidal ideation: No Patient has homicidal ideation: No - Past Medical History Cardiac Medical History: Reports: Hx Hypertension Denies: Hx Coronary Artery Disease, Hx Heart Attack Pulmonary Medical History: Reports: Hx Asthma, Hx Bronchitis, Hx COPD Denies: Hx Pneumonia Neurological Medical History: Reports: Hx Migraine, Hx Seizures - With hypoglycemia and alcohol withdrawal. Denies: Hx Cerebrovascular Accident Endocrine Medical History: Denies: Hx Diabetes Mellitus Type 1, Hx Diabetes Mellitus Type 2 Renal/ Medical History: Denies: Hx Peritoneal Dialysis GI Medical History: Reports: Hx Gastroesophageal Reflux Disease, Hx Hiatal Hernia - hernia Musculoskeletal Medical History: Reports Hx Arthritis - Back, bigg knees, Denies Hx Gout, Reports Hx Musculoskeletal Trauma Skin Medical History: Denies Hx Eczema, Denies Hx Psoriasis Psychiatric Medical History: Reports: Hx Anxiety, Hx Depression Past Surgical History: Reports: Hx Abdominal Surgery - hernia, Hx Herniorrhaphy - Right inguinal, Hx Inguinal Hernia - right - Immunizations Immunizations up to date: Yes Hx Diphtheria, Pertussis, Tetanus Vaccination: Yes - 2011 Review of Systems - Review of Systems Constitutional: See HPI EENT: No symptoms reported Cardiovascular: No symptoms reported Respiratory: No symptoms reported Gastrointestinal: See HPI Genitourinary: No symptoms reported Male Genitourinary: No symptoms reported Musculoskeletal: No symptoms reported Skin: No symptoms reported Hematologic/Lymphatic: No symptoms reported Neurological/Psychological: No symptoms reported Physical Exam - Vital signs Vitals: Temp Pulse Resp BP Pulse Ox 98.0 F 85 18 110/67 98 04/06/19 20:52 04/06/19 20:52 04/06/19 20:52 04/06/19 20:52 04/06/19 20:52 - Notes Notes: GENERAL: Alert, interacts well. No acute distress. Slightly disheveled HEAD: Normocephalic, atraumatic. EYES: Pupils equal, round, and reactive to light. Extraocular movements intact. ENT: Oral mucosa moist, tongue midline. Oropharynx unremarkable. Airway patent. Nares patent, no nasal septal hematoma, TM's intact. NECK: Full range of motion. Supple. Trachea midline. LUNGS: Clear to auscultation bilaterally, no wheezes, rales, or rhonchi. No respiratory distress. HEART: Regular rate and rhythm. No murmur ABDOMEN: Soft, non-tender. Non-distended. Bowel sounds present in all 4 quadrants. GENITOURINARY: Deferred RECTAL; no noted abnormal swelling, induration, fluctuance, or erythema, no current bleeding, no severe tenderness, unremarkable exam with recently banded hemorrhoids. Charity MELVIN at bedside during exam. EXTREMITIES: Moves all 4 extremities spontaneously. No edema, normal radial and dorsalis pedis pulses bilaterally. No cyanosis. BACK: no cervical, thoracic, lumbar midline tenderness. No saddle anesthesia, normal distal neurovascular exam. Moves all extremities in full range of motion. NEUROLOGICAL: Alert and oriented x3. Normal speech. Cranial nerves II through XII grossly intact. PSYCH: Normal affect, normal mood. SKIN: Warm, dry, normal turgor. No rashes or lesions noted. Course - Re-evaluation Re-evalutation: Patient does not have any signs of infection or current bleeding. He has recently banded hemorrhoids. No concerning finding otherwise. He is requesting that we place the initial suppository for him. He just got the medications. I did place the first one for him with Charity MELVIN at bedside. He expressed appreciation. He also expressed concerns about feeling shaky however he is not tremulous on my exam, he is not tachycardic. I asked when he drank alcohol last and he told me 3 days ago, however on laboratory work-up performed after patient's concerns about being shaky his alcohol is still 91. His magnesium is unremarkable, his sodium is unremarkable. His laboratory work-up is nonspecific. On reevaluation patient was given nourishment because of his hypoglycemia, he still does not have tachycardia, tremulousness, and he is oriented. Patient with no other complaints, expresses satisfaction about his work-up, appreciation for his assistance, no other additional complaints. Stable at time of discharge. - Vital Signs Vital signs: Temp Pulse Resp BP Pulse Ox 97.8 F 101 H 17 114/59 L 93 04/07/19 04:47 04/07/19 04:47 04/07/19 04:47 04/07/19 04:47 04/07/19 04:47 - Laboratory Result Diagrams: 04/07/19 03:45 04/07/19 03:45 Laboratory results interpreted by me: 04/07/19 04/07/19 03:45 03:45 RBC 4.24 L Hgb 13.2 L Plt Count 466 H Band Neutrophils % 1 L Eosinophils % (Manual) 7 H Glucose 66 L Discharge - Discharge Clinical Impression: Shakiness Hemorrhoids Qualifiers: Hemorrhoid type: other Qualified Code(s): K64.8 - Other hemorrhoids Alcohol dependence Qualifiers: Substance use status: unspecified alcohol-induced disorder Qualified Code(s): F10.29 - Alcohol dependence with unspecified alcohol-induced disorder Condition: Stable Disposition: HOME, SELF-CARE Additional Instructions: Your laboratory work-up is reassuring at this time other than low blood sugar. Your examination does not show infection or other concerning finding at this time. Use the suppositories you were provided by the surgeon, follow-up with the surgeon in the office for additional management. Follow-up with the [facility] location for additional evaluation and management and potential detox. Come back for any concerning symptoms including vomiting, seizures, developing redness or severe pain around the rectum, fever, or any other concerning symptoms. Forms: Return to Work Referrals: [facility] [Provider Group] - Follow up as needed MARK EDWARDS MD [ACTIVE STAFF] - Follow up in 3-5 days
[2019-04-07 04:10] LABS: HEMATOCRIT 39.1 % (37.9-51.0); HEMOGLOBIN 13.2 g/dL (13.5-17.0); MEAN CORPUSCULAR HGB CONC 33.7 g/dL (32.0-36.0); MEAN CORPUSCULAR VOLUME 92 fl (80-97); PLATELET COUNT 466 10^3/uL (150-450); RED BLOOD COUNT 4.24 10^6/uL (4.35-5.55); RED CELL DISTRIBUTION WIDTH 13.6 % (11.5-14.0); WHITE BLOOD COUNT 7.7 10^3/uL (4.0-10.5)
[2019-04-07 04:22] LABS: ALBUMIN 4.1 g/dL (3.5-5.0); ALCOHOL 91 mg/dL (NONE DETECTED); ALKALINE PHOSPHATASE 69 U/L (38-126); ANION GAP 10 (5-19); ASPARTATE AMINO TRANSFERASE 52 U/L (17-59); BILIRUBIN,DIRECT 0.2 mg/dL (0.0-0.4); BILIRUBIN,TOTAL 0.2 mg/dL (0.2-1.3); BLOOD UREA NITROGEN 9 mg/dL (7-20); CALCIUM 9.4 mg/dL (8.4-10.2); CARBON DIOXIDE 28 mmol/L (22-30); CHLORIDE 101 mmol/L (98-107); POTASSIUM 4.8 mmol/L (3.6-5.0); TOTAL PROTEIN 6.9 g/dL (6.3-8.2)
[2019-04-07 04:26] LABS: GLUCOSE 66 mg/dL (75-110)
[2019-04-07 04:32] LABS: ABSOLUTE LYMPHOCYTES# (MANUAL) 2.1 10^3/uL (0.5-4.7); ABSOLUTE MONOCYTES # (MANUAL) 0.6 10^3/uL (0.1-1.4); BAND NEUTROPHILS % (MANUAL) 1 % (3-5); BASOPHILS % (MANUAL) 0 % (0-2); EOSINOPHILS % (MANUAL) 7 % (0-6); LYMPHOCYTES % (MANUAL) 26 % (13-45); MONOCYTES % (MANUAL) 8 % (3-13); SEGMENTED NEUTROPHILS % (MAN) 57 % (42-78); TOTAL CELLS COUNTED 100
[2019-04-07 04:33] LABS: PLATELET COMMENT ADEQUATE; RBC MORPHOLOGY COMMENT NORMO-CYTIC/CHROMIC
[2019-04-07 04:47] VITALS: BP 114/59
== END 2019-04-07 04:45 | disposition home or self-care (01) ==
LOC: ER 20:19
DX: K64.8 Other hemorrhoids (principal); F10.29 Alcohol dependence with unspecified alcohol-induced disorder; I10 Essential (primary) hypertension; F17.200 Nicotine dependence, unspecified, uncomplicated; J44.9 Chronic obstructive pulmonary disease, unspecified
CPT/HCPCS: 36415; 80053; 80307; 82962; 83735; 85025; 99283

== ENCOUNTER 2019-04-10 19:18 | Emergency (ER) | payer OTHER ==
--- NOTE | 2019-04-10 19:24 | ER Document Report ---
ED General - General Stated Complaint: ABDOMINAL PAIN Time Seen by Provider: 04/10/19 19:24 Primary Care Provider: PRISCILLA BOLAÑOS MD [ACTIVE STAFF] - Follow up as needed TRAVEL OUTSIDE OF THE [place] IN LAST 30 DAYS: No - HPI Patient complains to provider of: GI bleeding Notes: 33 y/o presenting to ED for evaluation of possible blood in stool he had hemorrhoid banding about 13 days ago and notes that he had dark stool prior to the surgery and has continued with the same he also has a noted h/o alcohol abuse/dependence per chart review, he has a number of ED visits concerned for blood in stool that have had pretty unremarkable workups he has a follow up appt with his surgeon on Thursday of this week (3 days from now) he tells me he has been taking aspirin and ibuprofen for pain w/ minimal relief he is not using the suppositories prescribed to him he does not answer whether he is actively drinking but visit from 3 days ago noted etoh in his system - Related Data Allergies/Adverse Reactions: No Known Allergies Allergy (Verified 04/06/19 20:45) Past Medical History - Social History Smoking Status: Unknown if Ever Smoked Family History: CAD, DM, Hypertension - Past Medical History Cardiac Medical History: Reports: Hx Hypertension Denies: Hx Coronary Artery Disease, Hx Heart Attack Pulmonary Medical History: Reports: Hx Asthma, Hx Bronchitis, Hx COPD Denies: Hx Pneumonia Neurological Medical History: Reports: Hx Migraine, Hx Seizures - With hypoglycemia and alcohol withdrawal. Denies: Hx Cerebrovascular Accident Endocrine Medical History: Denies: Hx Diabetes Mellitus Type 1, Hx Diabetes Mellitus Type 2 Renal/ Medical History: Denies: Hx Peritoneal Dialysis GI Medical History: Reports: Hx Gastroesophageal Reflux Disease, Hx Hiatal Hernia - hernia Musculoskeletal Medical History: Reports Hx Arthritis - Back, bigg knees, Denies Hx Gout, Reports Hx Musculoskeletal Trauma Skin Medical History: Denies Hx Eczema, Denies Hx Psoriasis Psychiatric Medical History: Reports: Hx Anxiety, Hx Depression Past Surgical History: Reports: Hx Abdominal Surgery - hernia, Hx Herniorrhaphy - Right inguinal, Hx Inguinal Hernia - right - Immunizations Immunizations up to date: Yes Hx Diphtheria, Pertussis, Tetanus Vaccination: Yes - 2011 Review of Systems - Review of Systems Constitutional: No symptoms reported EENT: No symptoms reported Cardiovascular: No symptoms reported Respiratory: No symptoms reported Gastrointestinal: Abdominal pain, Black stools. denies: Diarrhea, Nausea, Vomiting Genitourinary: No symptoms reported Male Genitourinary: No symptoms reported Musculoskeletal: No symptoms reported Skin: No symptoms reported Hematologic/Lymphatic: No symptoms reported Neurological/Psychological: No symptoms reported Physical Exam - Vital signs Vitals: Temp Pulse Resp BP Pulse Ox 98.2 F 88 20 107/56 L 100 04/10/19 19:45 04/10/19 19:45 04/10/19 19:45 04/10/19 19:45 04/10/19 19:45 Interpretation: Normal - General General appearance: Appears well, Alert - HEENT Head: Normocephalic, Atraumatic Eyes: Normal Pupils: PERRL - Respiratory Respiratory status: No respiratory distress Chest status: Nontender Breath sounds: Normal Chest palpation: Normal - Cardiovascular Rhythm: Regular Heart sounds: Normal auscultation Murmur: No - Abdominal Inspection: Normal Distension: No distension Bowel sounds: Normal Tenderness: Nontender - no reproducible tenderness on exam. No: Tender, McBurney's point, Acuña's sign, Guarding, Rebound Organomegaly: No organomegaly - Back Back: Normal, Nontender - Extremities General upper extremity: Normal inspection, Nontender, Normal color, Normal ROM, Normal temperature General lower extremity: Normal inspection, Nontender, Normal color, Normal ROM, Normal temperature, Normal weight bearing. No: Lowell's sign - Neurological Neuro grossly intact: Yes Cognition: Normal Orientation: AAOx4 Center Cross Coma Scale Eye Opening: Spontaneous Center Cross Coma Scale Verbal: Oriented Center Cross Coma Scale Motor: Obeys Commands Sharla Coma Scale Total: 15 Speech: Normal Motor strength normal: LUE, RUE, LLE, RLE Sensory: Normal - Psychological Associated symptoms: Normal affect, Normal mood - Skin Skin Temperature: Warm Skin Moisture: Dry Skin Color: Normal Course - Re-evaluation Re-evalutation: 04/10/19 19:36 patient presents w/ concern for blood in stool and ongoing abdominal/rectal type of pain will order po pain medication, iv pepcid and iv fluid bolus while checking labs and hemeoccult 04/11/19 01:40 patient feeling better hemoglobin w/o significant change alcohol level hi patient w/o ride will hold in ED to allow time for sobering prior to discharge - Vital Signs Vital signs: Temp Pulse Resp BP Pulse Ox 98.2 F 88 20 107/56 L 100 04/10/19 19:45 04/10/19 19:45 04/10/19 19:45 04/10/19 19:45 04/10/19 19:45 - Laboratory Result Diagrams: 04/10/19 19:32 04/10/19 19:32 Laboratory results interpreted by me: 04/10/19 04/10/19 04/10/19 19:32 19:32 19:32 RBC 3.97 L Hgb 12.4 L Hct 36.8 L Plt Count 456 H Band Neutrophils % 1 L APTT 36.8 H BUN 4 L Total Bilirubin < 0.1 L Discharge - Discharge Clinical Impression: Alcohol intoxication Qualifiers: Complication of substance-induced condition: uncomplicated Qualified Code(s): F10.920 - Alcohol use, unspecified with intoxication, uncomplicated Abdominal pain Qualifiers: Abdominal location: epigastric Qualified Code(s): R10.13 - Epigastric pain Condition: Stable Disposition: HOME, SELF-CARE Instructions: Acute Alcohol Intoxication ([facility]) Additional Instructions: follow up with general surgeon as an outpatient as scheduled for evaluation of your hemorrhoid procedure consider cessation of alcohol abuse and entering into AA or other outpatient substance abuse resources return to the ED with worsening of symptoms Referrals: PRISCILLA BOLAÑOS MD [ACTIVE STAFF] - Follow up as needed MARK EDWARDS MD [ACTIVE STAFF] - Follow up in 3-5 days (as already scheduled)
[2019-04-10] MEDS ORDERED: OXYCODONE-ACETAMINOPHEN 5-325 MG TABLET PO ONE (19:29)
[2019-04-10] MEDS ORDERED: RINGERS SOLUTION,LACTATED 1,000 ML IV ONE (19:35)
[2019-04-10] MEDS ORDERED: FAMOTIDINE INJ/PF 20 MG/2 ML SDV IV ONE (19:35)
[2019-04-10 19:46] VITALS: BP 107/56
[2019-04-10 19:55] LABS: INTERNATIONAL RATION (INR) 0.92; PROTHROMBIN TIME 12.3 SEC (11.4-15.4)
[2019-04-10 19:56] LABS: PARTIAL THROMBOPLASTIN TIME 36.8 SEC (23.5-35.8)
[2019-04-10 20:08] LABS: ALBUMIN 3.7 g/dL (3.5-5.0); ALCOHOL 272 mg/dL (NONE DETECTED); ALKALINE PHOSPHATASE 61 U/L (38-126); ANION GAP 8 (5-19); ASPARTATE AMINO TRANSFERASE 41 U/L (17-59); BLOOD UREA NITROGEN 4 mg/dL (7-20); CARBON DIOXIDE 27 mmol/L (22-30); CHLORIDE 106 mmol/L (98-107); GLUCOSE 86 mg/dL (75-110); POTASSIUM 4.2 mmol/L (3.6-5.0); TOTAL PROTEIN 6.3 g/dL (6.3-8.2)
[2019-04-10 20:09] LABS: HEMATOCRIT 36.8 % (37.9-51.0); HEMOGLOBIN 12.4 g/dL (13.5-17.0); MEAN CORPUSCULAR HEMOGLOBIN 31.2 pg (27.0-33.4); MEAN CORPUSCULAR HGB CONC 33.7 g/dL (32.0-36.0); MEAN CORPUSCULAR VOLUME 93 fl (80-97); PLATELET COUNT 456 10^3/uL (150-450); RED BLOOD COUNT 3.97 10^6/uL (4.35-5.55); RED CELL DISTRIBUTION WIDTH 13.9 % (11.5-14.0); WHITE BLOOD COUNT 8.4 10^3/uL (4.0-10.5)
[2019-04-10 20:19] LABS: APPEARANCE,URINE CLEAR; BILIRUBIN,URINE NEGATIVE (NEGATIVE); COLOR,URINE COLORLESS; GLUCOSE, URINE NEGATIVE (NEGATIVE); KETONES,URINE NEGATIVE (NEGATIVE); LEUKOCYTE ESTERASE,URINE NEGATIVE (NEGATIVE); NITRITE,URINE NEGATIVE (NEGATIVE); PROTEIN,URINE NEGATIVE (NEGATIVE); URINE SPECIFIC GRAVITY 1.002; UROBILINOGEN,URINE NEGATIVE mg/dL (<2.0)
[2019-04-10 20:26] LABS: BILIRUBIN,TOTAL < 0.1 mg/dL (0.2-1.3)
[2019-04-10 20:44] LABS: ABSOLUTE LYMPHOCYTES# (MANUAL) 3.4 10^3/uL (0.5-4.7); ABSOLUTE MONOCYTES # (MANUAL) 0.6 10^3/uL (0.1-1.4); BAND NEUTROPHILS % (MANUAL) 1 % (3-5); BASOPHILS % (MANUAL) 0 % (0-2); EOSINOPHILS % (MANUAL) 3 % (0-6); LYMPHOCYTES % (MANUAL) 39 % (13-45); MONOCYTES % (MANUAL) 7 % (3-13); PLATELET COMMENT INCREASED; RBC MORPHOLOGY COMMENT NORMO-CYTIC/CHROMIC; SEGMENTED NEUTROPHILS % (MAN) 48 % (42-78); TOTAL CELLS COUNTED 100
== END 2019-04-11 09:42 | disposition home or self-care (01) ==
LOC: ER 19:18
DX: R10.13 Epigastric pain (principal); F10.120 Alcohol abuse with intoxication, uncomplicated; R19.5 Other fecal abnormalities; I10 Essential (primary) hypertension; J44.9 Chronic obstructive pulmonary disease, unspecified; Z98.890 Other specified postprocedural states
CPT/HCPCS: 99284; 96361; 96374; 36415; 80307; 83690; 85025; 85610; 85730; 80053; 81001; J7120; S0028

== ENCOUNTER 2019-04-15 15:04 | Emergency (ER) | payer OTHER ==
--- NOTE | 2019-04-15 15:35 | ER Document Report ---
ED General - General Chief Complaint: Abdominal Pain Stated Complaint: FALL/ABDOMINAL PAIN Time Seen by Provider: 04/15/19 15:30 Primary Care Provider: RACQUEL DUKES MD [Primary Care Provider] - Follow up as needed TRAVEL OUTSIDE OF THE [place] IN LAST 30 DAYS: No - HPI Notes: This is a 34-year-old male with a history of seizures, migraines, hypertension, COPD, emphysema, asthma,, bronchitis, GERD, abdominal surgery for hiatal hernia as well as a history of a right inguinal hernia. Patient also has a history of arthritis and MSK trauma not otherwise specified. Patient presents today stating he is seeking help for alcohol use disorder. Patient also states he has neck pain and has been having abdominal pain for several week Initial vital signs: Temperature is 97.9 F, pulse rate 76, respiratory rate 16, O2 sats 98% on room air, blood pressure 119/72 Differential diagnosis: Alcohol intoxication, alcohol use disorder, substance abuse, accidental fall, occult intracranial/cervical spine/chest/abdominal trauma Plan: Order CT head and C-spine without contrast, chest abdomen pelvis with IV contrast (trauma protocol), check CBC CMP lipase and urine drug screen along with a blood alcohol levels. - Related Data Allergies/Adverse Reactions: No Known Allergies Allergy (Verified 04/06/19 20:45) Past Medical History - General Information source: Patient, [facility] Records - Social History Smoking Status: Current Every Day Smoker Family History: CAD, DM, Hypertension Patient has suicidal ideation: No Patient has homicidal ideation: No - Past Medical History Cardiac Medical History: Reports: Hx Hypertension Denies: Hx Coronary Artery Disease, Hx Heart Attack Pulmonary Medical History: Reports: Hx Asthma, Hx Bronchitis, Hx COPD Denies: Hx Pneumonia Neurological Medical History: Reports: Hx Migraine, Hx Seizures - With hypoglycemia and alcohol withdrawal. Denies: Hx Cerebrovascular Accident Endocrine Medical History: Denies: Hx Diabetes Mellitus Type 1, Hx Diabetes Mellitus Type 2 Renal/ Medical History: Denies: Hx Peritoneal Dialysis GI Medical History: Reports: Hx Gastroesophageal Reflux Disease, Hx Hiatal Hernia - hernia Musculoskeletal Medical History: Reports Hx Arthritis - Back, bigg knees, Denies Hx Gout, Reports Hx Musculoskeletal Trauma Skin Medical History: Denies Hx Eczema, Denies Hx Psoriasis Psychiatric Medical History: Reports: Hx Anxiety, Hx Depression Past Surgical History: Reports: Hx Abdominal Surgery - hernia, Hx Herniorrhaphy - Right inguinal, Hx Inguinal Hernia - right - Immunizations Immunizations up to date: Yes Hx Diphtheria, Pertussis, Tetanus Vaccination: Yes - 2011 Review of Systems - Review of Systems Constitutional: See HPI EENT: No symptoms reported Respiratory: No symptoms reported Gastrointestinal: Abdominal pain Genitourinary: No symptoms reported Musculoskeletal: Back pain, Neck pain Hematologic/Lymphatic: No symptoms reported Neurological/Psychological: No symptoms reported -: Yes All other systems reviewed and negative Physical Exam - Vital signs Vitals: Temp Pulse Resp BP Pulse Ox 97.9 F 76 16 119/72 98 04/15/19 15:16 04/15/19 15:16 04/15/19 15:16 04/15/19 15:16 04/15/19 15:16 - Notes Notes: PHYSICAL EXAMINATION: GENERAL: Patient appears intoxicated, smells of products his EtOH metabolism, has a hard cervical spine collar in place, appears disheveled. HEAD: Atraumatic, normocephalic. EYES: Pupils equal round and reactive to light, extraocular movements intact, sclera anicteric, conjunctiva are injected bilaterally. ENT: nares patent, oropharynx clear without exudates. Moist mucous membranes. Patient is edentulous. No intraoral trauma is appreciated. There is no evidence of malocclusion. NECK: Neck is immobilized in c-collar. Trachea is midline. There is posterior midline tenderness on palpation of the patient's neck. There is no step-off crepitus or deformity. LUNGS: Breath sounds clear to auscultation bilaterally and equal. No wheezes rales or rhonchi. HEART: Regular rate and rhythm without murmurs ABDOMEN: Soft, nontender, normoactive bowel sounds. No guarding, no rebound. No masses appreciated. EXTREMITIES: Normal range of motion, no pitting or edema. No cyanosis. NEUROLOGICAL: No focal neurological deficits. Moves all extremities spontaneously and on command. PSYCH: Normal mood, normal affect. SKIN: Warm, Dry, normal turgor, no rashes or lesions noted. Course - Re-evaluation Re-evalutation: 04/15/19 22:16 Patient has been sleeping in the emergency department. Patient was awoken and informed that he had a unremarkable medical screening exam. Patient was informed that he was being discharged. Patient stated that he refuses to leave. This MD informed the patient that there is no indication at this time that the patient should be admitted. Patient was instructed that he could call a ride as he says he would earlier, or he could be escorted off the property by police for trespassing. Patient opted to call for a cab ride. Impression and plan: 34-year-old male with a history of alcohol use disorder p resents after accidental fall at home while intoxicated. Patient has been counseled on the danger of abusing alcohol and illicit substances. - Vital Signs Vital signs: Temp Pulse Resp BP Pulse Ox 97.9 F 78 17 101/65 93 04/15/19 20:38 04/15/19 20:38 04/15/19 20:38 04/15/19 20:38 04/15/19 20:38 - Laboratory Result Diagrams: 04/15/19 16:29 04/15/19 16:29 Laboratory results interpreted by me: 04/15/19 04/15/19 16:29 16:29 RBC 4.33 L RDW 14.1 H Eos % (Auto) 9.3 H BUN 3 L All laboratory findings reviewed by this MD. - Diagnostic Test Radiology reviewed: Reports reviewed Discharge - Discharge Clinical Impression: Alcohol use disorder, Positive urine drug screen, Accidental fall, Abdominal contusion, Cervical strain Disposition: HOME, SELF-CARE Additional Instructions: .Acute Alcohol Intoxication You can from drinking a large amount of alcohol rapidly! Further, there's the risk of falls, traffic accidents, and fights. A high portion (about 50 percent) of the serious injuries seen in hospital emergency rooms are caused by alcohol. Alcohol overdosage is usually due to an underlying emotional or psychiatric problem. You may benefit from counselling. If "binge" drinking is an ongoing problem for you, or if you drink ANY AMOUNT of alcohol EVERY day, you most likely have a tendency to alcoholism. You should avoid alcohol totally. We can refer you for treatment. Persons with alcohol problems are often also prone to other addictions -- you should discuss any use of medications or drugs with the doctor. You should be watched at home for the next several hours by someone who has not been drinking. Get extra fluids for the next 24 hours. Call the doctor if there is repeated vomiting, increasing headache, decreasing level of alertness, or any other worsening. Cocaine Abuse Cocaine causes many dangerous medical problems. Problems can occur even with "usual" amounts. Cocaine affects judgement, creating a sense of invulnerability. Cocaine users often make bad decisions that seem "great" at the time. Most cocaine users eventually will be hurt by bad job performance, damaged personal relations, crime, and unsafe sexual practices. Toxic effects of cocaine can include seizures, hallucinations, delusions, high blood pressure, heart damage, or sudden . There's always the risk of a "bad batch." But heart attacks, brain hemorrhages, or cardiac arrest can occur unpredictably even with "normal" use. Injection of cocaine is risky for abscesses, endocarditis (heart infection), pneumonia, and AIDS. Withdrawal from cocaine often causes anxiety and drug cravings. Some users become paranoid and psychotic. Many treatment programs are available, but you must make the decision to quit. Medication can be prescribed to control the symptoms of cocaine toxicity (beta blockers or benzodiazepines). Withdrawal symptoms may require tranquilizers.Return to the Emergency Department without delay if any worse. Contusion Your injury has resulted in a contusion -- a crushing of the deep tissues. No injury to important structures was detected during the physician's exam. Contusions vary in the amount of pain they cause, and in the length of time required for healing. Typically, the area will become bruised, and will remain painful to touch for two or three weeks. However, most patients are back to working and playing within a few days. After the initial period of rest and cold-packs, your symptoms (together with the doctor's recommendations) will determine how rapidly you can get back to full activity. Usually this means "do what feels okay, but don't do things that hurt." If re-examination was recommended, it's important to follow up as instr ucted. Call the doctor or return any time if pain increases, if swelling becomes severe, if you develop numbness or weakness in an injured extremity, or if any other alarming symptoms occur. Return to the Emergency Department without delay if any worse. Referrals: RACQUEL DUKES MD [Primary Care Provider] - 04/18/19
[2019-04-15 16:47] LABS: ABSOLUTE EOSINOPHILS # (AUTO) 0.6 10^3/uL (0.0-0.6); ABSOLUTE LYMPHOCYTES (AUTO) 1.3 10^3/uL (0.5-4.7); ABSOLUTE MONOCYTES (AUTO) 0.5 10^3/uL (0.1-1.4); ABSOLUTE NEUT (AUTO) 3.5 10^3/uL (1.7-8.2); BASOPHILS % (AUTO) 0.5 % (0-2); EOSINOPHILS % (AUTO) 9.3 % (0-6); HEMATOCRIT 39.9 % (37.9-51.0); HEMOGLOBIN 13.8 g/dL (13.5-17.0); LYMPHOCYTES % (AUTO) 22.7 % (13-45); MEAN CORPUSCULAR HEMOGLOBIN 31.9 pg (27.0-33.4); MEAN CORPUSCULAR HGB CONC 34.6 g/dL (32.0-36.0); MEAN CORPUSCULAR VOLUME 92 fl (80-97); MONOCYTES % (AUTO) 8.5 % (3-13); PLATELET COUNT 398 10^3/uL (150-450); RED BLOOD COUNT 4.33 10^6/uL (4.35-5.55); RED CELL DISTRIBUTION WIDTH 14.1 % (11.5-14.0); TOTAL CELLS COUNTED % (AUTO) 100 %; WHITE BLOOD COUNT 5.9 10^3/uL (4.0-10.5)
[2019-04-15 16:59] LABS: APPEARANCE,URINE CLEAR; BILIRUBIN,URINE NEGATIVE (NEGATIVE); COLOR,URINE STRAW; GLUCOSE, URINE NEGATIVE (NEGATIVE); KETONES,URINE NEGATIVE (NEGATIVE); LEUKOCYTE ESTERASE,URINE NEGATIVE (NEGATIVE); NITRITE,URINE NEGATIVE (NEGATIVE); PROTEIN,URINE NEGATIVE (NEGATIVE); URINE SPECIFIC GRAVITY 1.003; UROBILINOGEN,URINE NEGATIVE mg/dL (<2.0)
--- NOTE | 2019-04-15 17:10 | RADIOLOGY REPORT (SQ) ---
EXAM DESCRIPTION: CT HEAD WITHOUT COMPLETED DATE/TIME: 04/15/2019 4:59 pm REASON FOR STUDY: s/p fall, intoxicated, + head, neck, abd pain COMPARISON: 03/25/2019, 06/25/2018, and 05/28/2012 TECHNIQUE: Axial images acquired through the brain without intravenous contrast. Images reviewed wi th bone, brain and subdural windows. Additional sagittal and coronal reconstructions were generated. Images stored on PACS. All CT scanners at this facility use dose modulation, iterative reconstruction, and/or weight based d osing when appropriate to reduce radiation dose to as low as reasonably achievable (ALARA). [facility]: Dose Right [facility]: CareDose [facility]: Dose Right [facility]: Teradose 4D [facility]: [employer] RADIATION DOSE: mGy. LIMITATIONS: None. FINDINGS: VENTRICLES: Normal size and contour. CEREBRUM: No masses. No hemorrhage. No midline shift. No evidence for acute infarction. Normal gra y/white matter differentiation. No areas of low density in the white matter. CEREBELLUM: No masses. No hemorrhage. No alteration of density. No evidence for acute infarction. EXTRAAXIAL SPACES: No fluid collections. No masses. ORBITS AND GLOBE: No intra- or extraconal masses. Normal contour of globe without masses. CALVARIUM: No fracture. PARANASAL SINUSES: No fluid or mucosal thickening. SOFT TISSUES: No mass or hematoma. OTHER: No other significant finding. IMPRESSION: No evidence of calvarial injury or intracranial hemorrhage. EVIDENCE OF ACUTE STROKE: NO. COMMENT: Quality ID # [id number]: Final reports with documentation of one or more dose reduction techniques (e.g., Automated exposure control, adjustment of the mA and/or kV according to patient size, use of iterative reconstruction technique) TECHNICAL DOCUMENTATION: JOB ID: [id number] [employer] All Rights Reserved Reading location - IP/workstation name: [email or web address]
[2019-04-15 17:12] LABS: ALBUMIN 4.6 g/dL (3.5-5.0); ALKALINE PHOSPHATASE 76 U/L (38-126); ANION GAP 11 (5-19); ASPARTATE AMINO TRANSFERASE 44 U/L (17-59); BILIRUBIN,DIRECT 0.1 mg/dL (0.0-0.4); BILIRUBIN,TOTAL 0.2 mg/dL (0.2-1.3); BLOOD UREA NITROGEN 3 mg/dL (7-20); CALCIUM 9.6 mg/dL (8.4-10.2); CARBON DIOXIDE 27 mmol/L (22-30); CHLORIDE 101 mmol/L (98-107); GLUCOSE 91 mg/dL (75-110); POTASSIUM 4.8 mmol/L (3.6-5.0); TOTAL PROTEIN 7.5 g/dL (6.3-8.2)
--- NOTE | 2019-04-15 17:18 | RADIOLOGY REPORT (SQ) ---
EXAM DESCRIPTION: CT CERVICAL SPINE WITHOUT COMPLETED DATE/TIME: 04/15/2019 4:59 pm REASON FOR STUDY: s/p fall, intoxicated, + head, neck, abd pain COMPARISON: None. TECHNIQUE: Axial images acquired through the cervical spine without intravenous contrast. Images re viewed with lung, soft tissue and bone windows. Reconstructed coronal and sagittal MPR images review ed. Images stored on PACS. All CT scanners at this facility use dose modulation, iterative reconstruction, and/or weight based d osing when appropriate to reduce radiation dose to as low as reasonably achievable (ALARA). [facility]: Dose Right [facility]: CareDose [facility]: Dose Right [facility]: Teradose 4D [facility]: [employer] RADIATION DOSE: CT Rad equipment meets quality standard of care and radiation dose reduction techniq ues were employed. CTDIvol: 12.6 mGy. DLP: 252 mGy-cm. mGy. LIMITATIONS: None. FINDINGS: ALIGNMENT: Anatomic. MINERALIZATION: Normal. VERTEBRAL BODIES: No fractures or dislocation. DISCS: No significant disc disease. FACETS, LATERAL MASSES, POSTERIOR ELEMENTS: No fractures. No dislocation. No acute findings. HARDWARE: None in the spine. VISUALIZED RIBS: No fractures. LUNG APICES AND SOFT TISSUES: No significant or acute findings. OTHER: No other significant finding. IMPRESSION: NO ACUTE OR SIGNIFICANT FINDINGS IN THE CERVICAL SPINE. TECHNICAL DOCUMENTATION: JOB ID: [id number] Quality ID # [id number]: Final reports with documentation of one or more dose reduction techniques (e.g., Au tomated exposure control, adjustment of the mA and/or kV according to patient size, use of iterative reconstruction technique) 2010 [employer]- All Rights Reserved Reading location - IP/workstation name: [email or web address]
--- NOTE | 2019-04-15 17:19 | RADIOLOGY REPORT (SQ) ---
EXAM DESCRIPTION: CT CHEST WITH; CT ABD/PELVIS WITH IV ONLY COMPLETED DATE/TIME: 04/15/2019 4:59 pm REASON FOR STUDY: S/P FALL/PAIN; s/p fall, intoxicated, + head, neck, abd pain COMPARISON: None. CONTRAST TYPE AND DOSE: 80 mL Omnipaque 350- low osmolar. RENAL FUNCTION: BUN 5; creatinine 0.76 TECHNIQUE: CT scan of the chest performed using helical scanning technique with dynamic intravenous contrast injection. Images reviewed with lung, soft tissue and bone windows. Reconstructed coronal a nd sagittal MPR images reviewed. All images stored on PACS. CT scan of the abdomen and pelvis performed with intravenous and without oral contrastusing helical s dinorah technique with dynamic intravenous contrast injection. Images reviewed with lung, soft tissu e and bone windows. Reconstructed coronal and sagittal MPR images reviewed. Delayed images for eval uation of the urinary system also acquired and evaluated. All images stored on PACS. All CT scanners at this facility use dose modulation, iterative reconstruction, and/or weight based d osing when appropriate to reduce radiation dose to as low as reasonably achievable (ALARA). [facility]: Dose Right [facility]: CareDose [facility]: Dose Right [facility]: Teradose 4D [facility]: [employer] RADIATION DOSE: . LIMITATIONS: None. FINDINGS: CHEST: LUNGS AND PLEURA: No opacities, nodules, masses. No pneumothorax. No effusions. HILAR AND MEDIASTINAL STRUCTURES: No identified masses or abnormal nodes. HEART AND VASCULAR STRUCTURES: No aneurysm or dissection. No central pulmonary emboli. No pericardi al effusion. HARDWARE: None. THYROID AND OTHER SOFT TISSUES: No masses. No adenopathy. BONES: No significant finding. OTHER: No other significant finding. ABDOMEN AND PELVIS: LIVER: Normal size. No masses. No dilated ducts. SPLEEN: Normal size. No focal lesions. PANCREAS: No masses. No significant calcifications. No adjacent inflammation or peripancreatic fluid collections. Pancreatic duct not dilated. GALLBLADDER: No identified stones by CT criteria. No inflammatory changes to suggest cholecystitis. ADRENAL GLANDS: No significant masses or asymmetry. RIGHT KIDNEY AND URETER: No solid masses. Nonobstructing nephrolith within the inferior pole collecti ng system. 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 No hydronephrosis or hy droureter. LEFT KIDNEY AND URETER: No solid masses. No significant calcification. No hydronephrosis or hydro ureter. AORTA AND VESSELS: No aneurysm. No dissection. Renal arteries, SMA, celiac without stenosis. RETROPERITONEUM: No retroperitoneal adenopathy, hemorrhage or masses. BOWEL AND PERITONEAL CAVITY: No masses or inflammatory changes. No free fluid or peritoneal masses. APPENDIX: Normal. ABDOMINAL WALL: No masses. No hernias. PELVIS: No mass or free fluid. Normal bladder. BONES: No significant or acute findings. OTHER: No other significant finding. IMPRESSION: No evidence of acute osseous or visceral injury. NORMAL CT OF THE ABDOMEN AND PELVIS WITH ORAL AND INTRAVENOUS CONTRAST. TECHNICAL DOCUMENTATION: JOB ID: [id number] Quality ID # [id number]: Final reports with documentation of one or more dose reduction techniques (e.g., Au tomated exposure control, adjustment of the mA and/or kV according to patient size, use of iterative reconstruction technique) 2010 [employer]- All Rights Reserved Reading location - IP/workstation name: [email or web address]
[2019-04-15 17:21] LABS: URINE AMPHETAMINES SCREEN NEGATIVE; URINE BARBITURATES SCREEN NEGATIVE; URINE BENZODIAZEPINES SCREEN UNCONFIRMED POSITIVE; URINE COCAINE SCREEN UNCONFIRMED POSITIVE; URINE MARIJUANA (THC) SCREEN NEGATIVE; URINE METHADONE SCREEN NEGATIVE; URINE PHENCYCLIDINE SCREEN NEGATIVE
[2019-04-15] MEDS ORDERED: ACETAMINOPHEN 325 MG TABLET PO ONE (20:53)
[2019-04-15 23:12] VITALS: BP 103/58
== END 2019-04-15 23:11 | disposition home or self-care (01) ==
LOC: ER 15:04
DX: S16.1XXA Strain of muscle, fascia and tendon at neck level, initial encounter (principal); S30.1XXA Contusion of abdominal wall, initial encounter; W19.XXXA Unspecified fall, initial encounter; Y92.009 Unspecified place in unspecified non-institutional (private) residence as the place of occurrence of the external cause; F10.129 Alcohol abuse with intoxication, unspecified; M54.2 Cervicalgia; R10.9 Unspecified abdominal pain; M54.9 Dorsalgia, unspecified; I10 Essential (primary) hypertension; J43.9 Emphysema, unspecified; J45.909 Unspecified asthma, uncomplicated; F17.200 Nicotine dependence, unspecified, uncomplicated
CPT/HCPCS: 36415; 70450; 71260; 72125; 74177; 80053; 80307; 81001; 83690; 85025; 99284

== ENCOUNTER 2019-09-30 23:24 | Emergency (ER) | payer OTHER ==
[2019-09-30] MEDS ORDERED: NORMAL SALINE 1000 ML 1,000 ML IV ONE (23:58)
[2019-09-30] MEDS ORDERED: ONDANSETRON HCL INJ/PF 4 MG/2 ML SDV IV ONE (23:58)
--- NOTE | 2019-10-01 00:27 | ER Document Report ---
Entered by ANDRIY PAIGE SCRIBE 09/30/19 [id number] Acting as scribe for:NBA MARTINO IV, MD ED GI/ - General Chief Complaint: Abdominal Pain Stated Complaint: STOMACH PAIN Time Seen by Provider: 09/30/19 23:43 Primary Care Provider: RACQUEL DUKES MD [Primary Care Provider] - Follow up as needed Mode of Arrival: Ambulatory Information source: Patient Notes: This 34 year old male patient presents to the ED today with complaints of abdominal pain for the past x1 week. Patient states that he has also had "unusual" bowel movements with increased frequency and fecal incontinence. Patient also reports depression, cough, dehydration, nausea, and vomiting. Patient states that he can't keep anything down. Patient reports that he has a history of GERD and that he takes Zantac, stating that his PCP "straightened it out with the pharmacy" in regards to its recall. TRAVEL OUTSIDE OF THE [place] IN LAST 30 DAYS: No - Related Data Allergies/Adverse Reactions: No Known Allergies Allergy (Verified 04/06/19 20:45) Past Medical History - General Information source: Patient - Social History Smoking Status: Unknown if Ever Smoked Cigarette use (# per day): No Chew tobacco use (# tins/day): No Smoking Education Provided: No Frequency of alcohol use: Heavy Family History: Reviewed & Not Pertinent, CAD, DM, Hypertension Patient has suicidal ideation: No Patient has homicidal ideation: No - Past Medical History Cardiac Medical History: Reports: Hx Hypertension Pulmonary Medical History: Reports: Hx Asthma, Hx Bronchitis, Hx COPD Neurological Medical History: Reports: Hx Migraine, Hx Seizures - With hypoglycemia and alcohol withdrawal GI Medical History: Reports: Hx Gastroesophageal Reflux Disease, Hx Hiatal Hernia - hernia Musculoskeletal Medical History: Reports Hx Arthritis - Back, bigg knees, Reports Hx Musculoskeletal Trauma Psychiatric Medical History: Reports: Hx Anxiety, Hx Depression Past Surgical History: Reports: Hx Abdominal Surgery - hernia, Hx Herniorrhaphy - Right inguinal, Hx Inguinal Hernia - right - Immunizations Immunizations up to date: Yes Hx Diphtheria, Pertussis, Tetanus Vaccination: Yes - 2011 Review of Systems - Review of Systems Constitutional: No symptoms reported EENT: No symptoms reported Cardiovascular: No symptoms reported Respiratory: See HPI, Cough Gastrointestinal: See HPI, Abdominal pain, Nausea, Vomiting, Fecal incontinence, Other - Fecal frequency Genitourinary: No symptoms reported Male Genitourinary: No symptoms reported Musculoskeletal: No symptoms reported Skin: No symptoms reported Hematologic/Lymphatic: No symptoms reported Neurological/Psychological: See HPI, Depression -: Yes All other systems reviewed and negative Physical Exam - Vital signs Vitals: Temp Pulse Resp BP Pulse Ox 97.8 F 80 18 101/60 99 10/01/19 00:30 10/01/19 00:30 10/01/19 00:30 10/01/19 00:30 10/01/19 00:30 - General General appearance: Alert - HEENT Head: Normocephalic, Atraumatic Eyes: Normal Pupils: PERRL - Respiratory Respiratory status: No respiratory distress Chest status: Nontender Breath sounds: Normal Chest palpation: Normal - Cardiovascular Rhythm: Regular Heart sounds: Normal auscultation Murmur: No - Abdominal Inspection: Normal Distension: No distension Bowel sounds: Normal Tenderness: Nontender Organomegaly: No organomegaly - Back Back: Normal, Nontender - Extremities General upper extremity: Normal inspection General lower extremity: Normal inspection - Neurological Neuro grossly intact: Yes - Psychological Associated symptoms: Normal affect, Normal mood - Skin Skin Temperature: Warm Skin Moisture: Dry Skin Color: Normal Course - Re-evaluation Re-evalutation: 10/01/19 02:36 Results of ED MSE discussed with patient. All questions were answered prior to discharge. Emergency signs and symptoms, reasons to return to the emergency department discussed with patient. - Vital Signs Vital signs: Temp Pulse Resp BP Pulse Ox 97.8 F 80 18 101/60 99 10/01/19 00:30 10/01/19 00:30 10/01/19 00:30 10/01/19 00:30 10/01/19 00:30 - Laboratory Result Diagrams: 10/01/19 00:30 10/01/19 00:30 Laboratory results interpreted by me: 10/01/19 10/01/19 00:30 00:30 RBC 4.05 L Hgb 13.2 L Hct 37.0 L RDW 14.4 H Eos % (Auto) 9.6 H Absolute Eos (auto) 0.7 H Seg Neutrophils % 38.4 L Sodium 136.2 L - Diagnostic Test Radiology reviewed: Reports reviewed Discharge - Discharge Clinical Impression: Cocaine abuse Acute alcohol intoxication Qualifiers: Complication of substance-induced condition: uncomplicated Qualified Code(s): F10.920 - Alcohol use, unspecified with intoxication, uncomplicated Abdominal pain Qualifiers: Abdominal location: unspecified location Qualified Code(s): R10.9 - Unspecified abdominal pain Condition: Good Disposition: HOME, SELF-CARE Instructions: Abdominal Pain ([facility]) Additional Instructions: Return to the Emergency Department without delay if any worse.Cocaine Abuse Cocaine causes many dangerous medical problems. Problems can occur even with "usual" amounts. Cocaine affects judgement, creating a sense of invulnerability. Cocaine users often make bad decisions that seem "great" at the time. Most cocaine users eventually will be hurt by bad job performance, damaged personal relations, crime, and unsafe sexual practices. Toxic effects of cocaine can include seizures, hallucinations, delusions, high blood pressure, heart damage, or sudden . There's always the risk of a "bad batch." But heart attacks, brain hemorrhages, or cardiac arrest can occur unpredictably even with "normal" use. Injection of cocaine is risky for abscesses, endocarditis (heart infection), pneumonia, and AIDS. Withdrawal from cocaine often causes anxiety and drug cravings. Some users become paranoid and psychotic. Many treatment programs are available, but you must make the decision to quit. Medication can be prescribed to control the symptoms of cocaine toxicity (beta blockers or benzodiazepines). Withdrawal symptoms may require tranquilizers. Abdominal Pain There are many causes of abdominal pain. Pain can mean a serious problem requiring surgery (such as appendicitis). It can also be an innocent problem that goes away on its own (such as a viral infection). Often, time must pass to determine the cause of pain. The physician does not feel that hospitalization is necessary, at present. Things may change within the next 24 hours. Call the doctor or come back for re- examination if any problems occur, such as: (1) Pain that becomes more severe, steady, or becomes concentrated in one specific area. Also, pain that is more severe with movement or coughing. (2) Vomiting that persists or becomes more frequent. (3) Blood in the vomitus, urine, or bowel movements. Blood in the stool may have a tarry or black appearance. (4) Shaking chills or fever greater than 100 degrees F. (5) The abdomen becomes more distended or swollen. (6) Bowel movements cease. (7) Failure to improve as expected. Referrals: RACQUEL DUKES MD [Primary Care Provider] - Follow up as needed I personally performed the services described in the documentation, reviewed and edited the documentation which was dictated to the scribe in my presence, and it accurately records my words and actions.
[2019-10-01 00:54] LABS: ABSOLUTE BASOPHILS # (AUTO) 0.1 10^3/uL (0.0-0.2); ABSOLUTE EOSINOPHILS # (AUTO) 0.7 10^3/uL (0.0-0.6); ABSOLUTE LYMPHOCYTES (AUTO) 2.8 10^3/uL (0.5-4.7); ABSOLUTE MONOCYTES (AUTO) 0.7 10^3/uL (0.1-1.4); ABSOLUTE NEUT (AUTO) 2.6 10^3/uL (1.7-8.2); BASOPHILS % (AUTO) 0.8 % (0-2); EOSINOPHILS % (AUTO) 9.6 % (0-6); HEMOGLOBIN 13.2 g/dL (13.5-17.0); LYMPHOCYTES % (AUTO) 41.3 % (13-45); MEAN CORPUSCULAR HEMOGLOBIN 32.5 pg (27.0-33.4); MEAN CORPUSCULAR HGB CONC 35.5 g/dL (32.0-36.0); MEAN CORPUSCULAR VOLUME 92 fl (80-97); MONOCYTES % (AUTO) 9.9 % (3-13); PLATELET COUNT 316 10^3/uL (150-450); RED BLOOD COUNT 4.05 10^6/uL (4.35-5.55); RED CELL DISTRIBUTION WIDTH 14.4 % (11.5-14.0); SEGMENTED NEUTROPHILS % (AUTO) 38.4 % (42-78); TOTAL CELLS COUNTED % (AUTO) 100 %; WHITE BLOOD COUNT 6.8 10^3/uL (4.0-10.5)
[2019-10-01 00:58] LABS: APPEARANCE,URINE CLEAR; BILIRUBIN,URINE NEGATIVE (NEGATIVE); COLOR,URINE STRAW; GLUCOSE, URINE NEGATIVE (NEGATIVE); KETONES,URINE NEGATIVE (NEGATIVE); PROTEIN,URINE NEGATIVE (NEGATIVE); URINE SPECIFIC GRAVITY 1.003; UROBILINOGEN,URINE NEGATIVE mg/dL (<2.0)
--- NOTE | 2019-10-01 01:06 | RADIOLOGY REPORT (SQ) ---
EXAM DESCRIPTION: [facility]: XR CHEST 1 VIEW CLINICAL HISTORY: 34 years Male; cough; COMPARISON: 03/25/2019 FINDINGS: Lungs: Lungs are clear, with no focal infiltrate, pneumothorax, or pleural effusion. Mediastinum: Mediastinum is within normal limits for this positioning. Bones: Bony structures are unremarkable. IMPRESSION: 1. No acute pulmonary findings.
[2019-10-01 01:08] LABS: ALBUMIN 4.7 g/dL (3.5-5.0); ALCOHOL 164 mg/dL (NONE DETECTED); ALKALINE PHOSPHATASE 61 U/L (38-126); ANION GAP 7 (5-19); ASPARTATE AMINO TRANSFERASE 35 U/L (17-59); BILIRUBIN,TOTAL 0.2 mg/dL (0.2-1.3); BLOOD UREA NITROGEN 10 mg/dL (7-20); CALCIUM 9.1 mg/dL (8.4-10.2); CARBON DIOXIDE 27 mmol/L (22-30); CHLORIDE 102 mmol/L (98-107); GLUCOSE 92 mg/dL (75-110); TOTAL PROTEIN 7.6 g/dL (6.3-8.2)
[2019-10-01 01:17] LABS: URINE AMPHETAMINES SCREEN NEGATIVE; URINE BARBITURATES SCREEN NEGATIVE; URINE BENZODIAZEPINES SCREEN NEGATIVE; URINE MARIJUANA (THC) SCREEN NEGATIVE; URINE METHADONE SCREEN NEGATIVE; URINE PHENCYCLIDINE SCREEN NEGATIVE
[2019-10-01 01:18] LABS: URINE COCAINE SCREEN UNCONFIRMED POSITIVE
--- NOTE | 2019-10-01 02:23 | RADIOLOGY REPORT (SQ) ---
EXAM DESCRIPTION: [facility]: CT ABDOMEN PELVIS WITH IV CONTRAST CLINICAL HISTORY: 34 years Male; epigastric pain; TECHNIQUE: CT of the abdomen and pelvis using intravenous contrast. No oral contrast was administered. All CT scans at this facility use dose modulation, iterative reconstruction, and/or weight based dosing when appropriate to reduce radiation dose to as low as reasonably achievable. COMPARISON: None. CT 02/07/2019 FINDINGS: Abdomen: Stomach: No significant distention or surrounding edema. Liver:No focal lesions. No intrahepatic ductal distention. Gallbladder:Nondistended Pancreas:Within normal limits Spleen:Within normal limits Right kidney: 6 mm calculus as on prior exam. No hydronephrosis. Left kidney:No hydronephrosis. No focal lesion. Adrenal glands:Within normal limits Vascular structures:Within normal limits Pelvis: Small bowel:No significant distention. Appendix:Within normal limits Colon:No distention or acute pericolonic edema. No free intraperitoneal fluid or air. Bones: No acute bone findings. Bladder: Unremarkable. No pelvic mass or adenopathy. IMPRESSION: 1. No acute findings 2. Right renal calculus as on prior exam. No hydronephrosis.
[2019-10-01 03:06] VITALS: BP 100/60
== END 2019-10-01 03:06 | disposition home or self-care (01) ==
LOC: ER 23:24
DX: F14.10 Cocaine abuse, uncomplicated (principal); F10.920 Alcohol use, unspecified with intoxication, uncomplicated; R10.9 Unspecified abdominal pain; R05 Cough; E86.0 Dehydration; R11.2 Nausea with vomiting, unspecified; K21.9 Gastro-esophageal reflux disease without esophagitis; I10 Essential (primary) hypertension; J44.9 Chronic obstructive pulmonary disease, unspecified
CPT/HCPCS: 99284; 96361; 96374; 36415; 80307 ×2; 83690; 85025; 80053; 81001; 71045; 74177; J2405; J7030

== ENCOUNTER 2019-10-01 12:00 | Emergency (ER) | payer OTHER, SELFPAY ==
--- NOTE | 2019-10-01 12:56 | ER Document Report ---
HPI - HPI Onset: Yesterday Onset/Duration: Gradual Quality of pain: Achy Severity: Mild Pain Level: 1 Context: 34-year-old male presented to the [facility] for cough congestion runny nose fever chills with a whitish-green sputum's shortness of breath headache abdominal pain and some diarrhea. He states he does smoke a pack a day. He states he was a patient at [facility] and they told him that he could not go back without being tested for the coronavirus. The patient was evaluated during the global Covid 19 pandemic, and that diagnosis was suspected/considered upon their initial presentation. Their evaluation, treatment and testing was consistent with current guidelines for patients who present with complaints or symptoms that may be related to Covid 19. Associated Symptoms: Chills, Productive cough, Fever, Headache, Rhinnorhea, Sinus pain/drainage Exacerbated by: Denies Relieved by: Denies Similar symptoms previously: Yes Recently seen / treated by doctor: No - EENT EENT: REPORTS: Nasal Drainage-Purulent - NEURO Neurology: REPORTS: Headache - RESPIRATORY Respiratory: REPORTS: Coughing - GASTROINTESTINAL Gastrointestinal: REPORTS: Abdominal Pain, Patient vomiting, Diarrhea - REPRODUCTIVE Reproductive: DENIES: : Past Medical History - General Information source: Patient - Social History Smoking Status: Current Every Day Smoker Cigarette use (# per day): Yes - Pack per day Smoking Education Provided: Yes - 4 minutes Lives with: Alone Family History: Reviewed & Not Pertinent, CAD, DM, Hypertension - Past Medical History Cardiac Medical History: Reports: Hx Hypertension Pulmonary Medical History: Reports: Hx Asthma, Hx Bronchitis, Hx COPD Neurological Medical History: Reports: Hx Migraine, Hx Seizures - With hypoglycemia and alcohol withdrawal GI Medical History: Reports: Hx Gastroesophageal Reflux Disease, Hx Hiatal Hernia - hernia Musculoskeletal Medical History: Reports Hx Arthritis - Back, bigg knees, Reports Hx Musculoskeletal Trauma Psychiatric Medical History: Reports: Hx Anxiety, Hx Depression Past Surgical History: Reports: Hx Abdominal Surgery - hernia, Hx Herniorrhaphy - Right inguinal, Hx Inguinal Hernia - right - Immunizations Immunizations up to date: Yes Hx Diphtheria, Pertussis, Tetanus Vaccination: Yes - 2011 Vertical Provider Document - CONSTITUTIONAL Agree With Documented VS: Yes Notes: Full physical exam could not be performed due to covid 19 isolation protocols. Constitutional: Nontoxic appearance, no acute distress Eyes: Nonicteric, extraocular movements intact, sclera clear swollen nasal passage with purulent nasal drainage and postnasal drip Cardiovascular: No JVD Respiratory: Nonlabored breathing, no use of accessory muscles, no tachypnea nonproductive cough Gastrointestinal: Abdomen not distended Muculoskeletal: Moves all extremities well, normal gait Skin: Normal color Neuro: Awake alert oriented, normal speech Psych: Normal mood and affect - INFECTION CONTROL TRAVEL OUTSIDE OF THE [place] IN LAST 30 DAYS: No Course - Re-evaluation Re-evalutation: 10/01/19 12:56 Patient presents with upper respiratory symptoms worrisome for possible Covid 19. Patient does not have emergency worring symptoms such as difficulty breathing, shortness of breath, chest pain, pressure, confusion or cyanosis. Patient appears suitable for discharge. Patient's vital signs are stable and patient is nontoxic in appearance. Good return precautions have been discussed with patient, patient verbalized understanding and is agreeable with discharge plan of care at this time. 10/01/19 13:56 Patient notified of Negative results for Rapid Flu (A & B) and Rapid Strep. Patient also advised of PENDING results for Throat Culture and COVID- 19. Discharge - Discharge Clinical Impression: Viral respiratory illness Condition: Stable Disposition: HOME, SELF-CARE Additional Instructions: Patient was provided with discharge information including: As a person under investigation for Covid 19, the [place] department of Health and Human Services, division of public health advises you to adhere to the following guidance until your test results are reported to you. If your test result is positive, you will receive additional information from your provider and your local health department at that time. Remain at home until you are cleared by the health provider or public health authorities. Keep a log of visitors to your home, notify any visitors to your home of your isolation status. If you plan to move to a new address or leave the county, notify the local health department in your County. Call your doctor or seek care if you have an urgent medical need. Before seeking medical care, call ahead to get instructions from the provider before arriving at the medical office clinic or hospital. Notify them that you are being tested for the virus that causes Covid 19 so that arrangements can be made, as necessary, to prevent transmission to others in the healthcare setting. Next, notify the local health department in your county. If a medical emergency arises and you need to call 911, inform the first responders that you are being tested for the virus that causes Covid 19. Next, notify the local health department in your county. Referrals: RACQUEL DUKES MD [Primary Care Provider] - Follow up as needed
[2019-10-01 13:38] LABS: A TYPE INFLUENZA AG NEGATIVE (NEGATIVE); B INFLUENZA AG NEGATIVE (NEGATIVE)
[2019-10-01 14:01] VITALS: BP 129/71
== END 2019-10-01 15:01 | disposition home or self-care (01) ==
LOC: EDRDC 12:00
DX: R09.89 Other specified symptoms and signs involving the circulatory and respiratory systems (principal); B97.89 Other viral agents as the cause of diseases classified elsewhere; Z20.828 Contact with and (suspected) exposure to other viral communicable diseases; R05 Cough; R50.9 Fever, unspecified; R51 Headache; R10.9 Unspecified abdominal pain; R19.7 Diarrhea, unspecified; F17.210 Nicotine dependence, cigarettes, uncomplicated; I10 Essential (primary) hypertension; J44.9 Chronic obstructive pulmonary disease, unspecified
CPT/HCPCS: 87070; 87635; 87804; 87880; 99211

== ENCOUNTER 2019-11-27 15:38 | Emergency (ER) | payer SELFPAY ==
--- NOTE | 2019-11-27 16:01 | ER Document Report ---
ED Medical Screen (RME) - General Chief Complaint: Rectal Bleeding Stated Complaint: RECTAL BLEEDING Time Seen by Provider: 11/27/19 15:56 Primary Care Provider: RACQUEL DUKES MD [Primary Care Provider] - Follow up as needed Mode of Arrival: Ambulatory Information source: Patient Notes: 34-year-old male patient presented to the emergency department chief complaint of 2-week history of rectal bleeding. Patient reports he does have a history of hemorrhoids, states he was seen by his doctor for this episode of rectal bleeding, he states that they took some labs and told him that this was in relation to a liver problem. Patient reports the pain and bleeding is getting worse. Patient is alert, oriented, not the best historian. Exam deferred until patient is in room. I have greeted and performed a rapid initial assessment of this patient. A comprehensive ED assessment and evaluation of the patient, analysis of test results and completion of the medical decision making process will be conducted by additional ED providers. I have specifically instructed the patient or family members with the patient to immediately return to any nursing staff s hould anything change in the patient's condition or with their chief complaint. TRAVEL OUTSIDE OF THE [place] IN LAST 30 DAYS: No - Related Data Allergies/Adverse Reactions: No Known Allergies Allergy (Verified 11/27/19 15:55) Past Medical History - Social History Chew tobacco use (# tins/day): No Frequency of alcohol use: Heavy Drug Abuse: None - Past Medical History Cardiac Medical History: Reports: Hx Hypertension Pulmonary Medical History: Reports: Hx Asthma, Hx Bronchitis, Hx COPD Neurological Medical History: Reports: Hx Migraine, Hx Seizures - With hypoglycemia and alcohol withdrawal GI Medical History: Reports: Hx Gastroesophageal Reflux Disease, Hx Hiatal Hernia - hernia Musculoskeltal Medical History: Reports Hx Arthritis - Back, bigg knees, Reports Hx Musculoskeletal Trauma Psychiatric Medical History: Reports: Hx Anxiety, Hx Depression Past Surgical History: Reports: Hx Abdominal Surgery - hernia, Hx Herniorrhaphy - Right inguinal, Hx Inguinal Hernia - right - Immunizations Immunizations up to date: Yes Hx Diphtheria, Pertussis, Tetanus Vaccination: Yes - 2011 Physical Exam - Vital signs Vitals: Temp Pulse Resp BP Pulse Ox 98.4 F 100 16 134/87 H 96 11/27/19 15:47 11/27/19 15:47 11/27/19 15:47 11/27/19 15:47 11/27/19 15:47 Course - Vital Signs Vital signs: Temp Pulse Resp BP Pulse Ox 97.8 F 100 16 134/87 H 96 11/27/19 15:56 11/27/19 15:47 11/27/19 15:47 11/27/19 15:47 11/27/19 15:47 Doctor's Discharge - Discharge Referrals: RACQUEL DUKES MD [Primary Care Provider] - Follow up as needed
[2019-11-27 16:38] LABS: ABSOLUTE EOSINOPHILS # (AUTO) 0.6 10^3/uL (0.0-0.6); ABSOLUTE MONOCYTES (AUTO) 0.8 10^3/uL (0.1-1.4); ABSOLUTE NEUT (AUTO) 4.1 10^3/uL (1.7-8.2); BASOPHILS % (AUTO) 0.6 % (0-2); EOSINOPHILS % (AUTO) 8.3 % (0-6); HEMATOCRIT 41.1 % (37.9-51.0); HEMOGLOBIN 14.1 g/dL (13.5-17.0); LYMPHOCYTES % (AUTO) 26.6 % (13-45); MEAN CORPUSCULAR HEMOGLOBIN 32.1 pg (27.0-33.4); MEAN CORPUSCULAR HGB CONC 34.4 g/dL (32.0-36.0); MEAN CORPUSCULAR VOLUME 93 fl (80-97); MONOCYTES % (AUTO) 10.6 % (3-13); PLATELET COUNT 282 10^3/uL (150-450); RED BLOOD COUNT 4.41 10^6/uL (4.35-5.55); RED CELL DISTRIBUTION WIDTH 14.4 % (11.5-14.0); SEGMENTED NEUTROPHILS % (AUTO) 53.9 % (42-78); TOTAL CELLS COUNTED % (AUTO) 100 %; WHITE BLOOD COUNT 7.6 10^3/uL (4.0-10.5)
[2019-11-27 16:47] LABS: APPEARANCE,URINE CLEAR; BILIRUBIN,URINE NEGATIVE (NEGATIVE); COLOR,URINE COLORLESS; GLUCOSE, URINE NEGATIVE (NEGATIVE); KETONES,URINE NEGATIVE (NEGATIVE); LEUKOCYTE ESTERASE,URINE NEGATIVE (NEGATIVE); NITRITE,URINE NEGATIVE (NEGATIVE); PROTEIN,URINE NEGATIVE (NEGATIVE); URINE SPECIFIC GRAVITY 1.003; UROBILINOGEN,URINE NEGATIVE mg/dL (<2.0)
[2019-11-27 16:51] LABS: PROTHROMBIN TIME 12.1 SEC (11.4-15.4)
--- NOTE | 2019-11-27 16:53 | ER Document Report ---
ED GI Bleed / Rectal Pain - General Chief Complaint: Rectal Bleeding Stated Complaint: RECTAL BLEEDING Time Seen by Provider: 11/27/19 15:56 Primary Care Provider: RACQUEL DUKES MD [Primary Care Provider] - Follow up as needed Mode of Arrival: Ambulatory Notes: HPI: Patient is a 34-year-old male who presents today with the onset of around 3 months ago of some rectal bleeding. He states 1 month ago he received banding of his internal hemorrhoids. This was facilitated by his primary doctor Dr. Dukes. Patient states he has had some intermittent rectal bleeding since that time. He is also had some nausea and vomiting. Patient is an admitted alcoholic who states he drinks a 12 pack a day. He states he had laboratory work done 1 week ago that showed some increased liver enzymes. He denies any fevers, abdominal pain, and he is on Prilosec. He is on no blood thinning medications. He denies any pain to his abdomen, pelvis, or pain with defecation. He states the stool is brown with black specks. ROS: See HPI All other review of systems reviewed and otherwise negative Reviewed vital signs and nursing note as charted by RN. PHYSICAL EXAM: CONSTITUTIONAL: Alert and oriented and responds appropriately to questions. Well-appearing; well-nourished HEAD: Normocephalic; atraumatic EYES: Sclerae non-icteric ENT: Normal nose; no rhinorrhea; moist mucous membranes; pharynx without lesions noted NECK: Supple without meningismus; non-tender; no cervical lymphadenopathy, no masses CARD: Regular rate and rhythm; no murmurs; symmetric distal pulses RESP: Normal chest excursion without splinting or tachypnea; breath sounds clear and equal bilaterally; no wheezes, no rhonchi, no rales ABD/GI: Normal bowel sounds; non-distended; soft, non-tender; no palpable or ganomegaly or masses GI/: Patient has no gross blood on rectal examination with Hemoccult negative stool BACK: The back appears normal and is non-tender to palpation EXT: Normal ROM in all joints; non-tender to palpation; no edema SKIN: No acute lesions noted NEURO: CN 2-12 intact; 5/5 bilateral upper and lower extremity strength with sensation intact to light touch PSYCH: The patient's mood and manner are appropriate. Grooming and personal hygiene are appropriate. TRAVEL OUTSIDE OF THE [place] IN LAST 30 DAYS: No - Related Data Allergies/Adverse Reactions: No Known Allergies Allergy (Verified 11/27/19 15:55) Past Medical History - General Information source: Patient - Social History Smoking Status: Current Every Day Smoker Chew tobacco use (# tins/day): No Frequency of alcohol use: Heavy Drug Abuse: None Family History: Reviewed & Not Pertinent, CAD, DM, Hypertension Patient has homicidal ideation: No - Past Medical History Cardiac Medical History: Reports: Hx Hypertension Pulmonary Medical History: Reports: Hx Asthma, Hx Bronchitis, Hx COPD Neurological Medical History: Reports: Hx Migraine, Hx Seizures - With hypoglycemia and alcohol withdrawal GI Medical History: Reports: Hx Gastroesophageal Reflux Disease, Hx Hiatal Hernia - hernia Musculoskeletal Medical History: Reports Hx Arthritis - Back, bigg knees, Reports Hx Musculoskeletal Trauma Psychiatric Medical History: Reports: Hx Anxiety, Hx Depression Past Surgical History: Reports: Hx Abdominal Surgery - hernia, Hx Herniorrhaphy - Right inguinal, Hx Inguinal Hernia - right - Immunizations Immunizations up to date: Yes Hx Diphtheria, Pertussis, Tetanus Vaccination: Yes - 2011 Physical Exam - Vital signs Vitals: Temp Pulse Resp BP Pulse Ox 98.4 F 100 16 134/87 H 96 11/27/19 15:47 11/27/19 15:47 11/27/19 15:47 11/27/19 15:47 11/27/19 15:47 Course - Re-evaluation Re-evalutation: 11/27/19 16:53 Given the above history and physical, Hemoccult exam results, with no tenderness to palpation of the abdomen, we will obtain a hemoglobin level as well as electrolytes and a PT/INR. I am concerned about the patient's alcohol intake. I have had behavioral health see the patient to help the patient have expedited follow-up for alcohol treatment. I do not believe any imaging is necessary at this moment. 11/27/19 17:11 Hemoglobin is actually increased from previous visit. Normal liver enzymes and bilirubin. We will check the patient's blood alcohol level and if and when it is less than 200, patient will be discharged here to go directly to [facility] as the patient agrees. - Vital Signs Vital signs: Temp Pulse Resp BP Pulse Ox 97.8 F 100 16 134/87 H 96 11/27/19 15:56 11/27/19 15:47 11/27/19 15:47 11/27/19 15:47 11/27/19 15:47 - Laboratory Result Diagrams: 11/27/19 16:25 11/27/19 16:25 Laboratory results interpreted by me: 11/27/19 16:25 RDW 14.4 H Eos % (Auto) 8.3 H Discharge - Discharge Clinical Impression: Alcohol abuse, Rectal bleeding Condition: Good Disposition: HOME, SELF-CARE Additional Instructions: Please go directly to the access recorded. Please return immediately with any return of bleeding, fever, persistent vomiting, abdominal pain, or any other acute problems. Referrals: RACQUEL DUKES MD [Primary Care Provider] - Follow up as needed
[2019-11-27 16:54] LABS: ALBUMIN 4.8 g/dL (3.5-5.0); ALKALINE PHOSPHATASE 72 U/L (38-126); ANION GAP 8 (5-19); ASPARTATE AMINO TRANSFERASE 59 U/L (17-59); BILIRUBIN,TOTAL 0.2 mg/dL (0.2-1.3); BLOOD UREA NITROGEN 8 mg/dL (7-20); CALCIUM 9.1 mg/dL (8.4-10.2); CARBON DIOXIDE 29 mmol/L (22-30); CHLORIDE 101 mmol/L (98-107); GLUCOSE 98 mg/dL (75-110); POTASSIUM 4.7 mmol/L (3.6-5.0); TOTAL PROTEIN 7.8 g/dL (6.3-8.2)
[2019-11-27] MEDS ORDERED: THIAMINE HCL 100 MG, FOLIC ACID 1 MG in NORMAL SALINE 250 ML IV ONE (17:09)
[2019-11-27] MEDS ORDERED: NORMAL SALINE 1000 ML 1,000 ML IV ONE (17:09)
[2019-11-27] MEDS ORDERED: THIAMINE HCL INJ 200 MG/2 ML VIAL ONE (17:15)
[2019-11-27] MEDS ORDERED: NORMAL SALINE 1000 ML 1,000 ML with POTASSIUM CHLORIDE 20 MEQ, MAGNESIUM SULFATE 8 MEQ,... IV SCH ×5 (18:00)
[2019-11-27 22:17] VITALS: BP 132/75
== END 2019-11-27 22:44 | disposition home or self-care (01) ==
LOC: ER 15:38
DX: K62.5 Hemorrhage of anus and rectum (principal); F10.10 Alcohol abuse, uncomplicated; R11.2 Nausea with vomiting, unspecified; F17.200 Nicotine dependence, unspecified, uncomplicated; I10 Essential (primary) hypertension; J44.9 Chronic obstructive pulmonary disease, unspecified; K21.9 Gastro-esophageal reflux disease without esophagitis; Z79.899 Other long term (current) drug therapy; Z87.19 Personal history of other diseases of the digestive system; Z98.890 Other specified postprocedural states
CPT/HCPCS: 99283; 96361; 96365; 36415; 80307; 85025; 85610; 80053; 81001; J3490; J3411; J7030; J7050

== ENCOUNTER 2019-12-03 15:57 | Emergency (ER) | payer OTHER, SELFPAY ==
--- NOTE | 2019-12-03 16:55 | ER Document Report ---
ED Medical Screen (RME) - General Chief Complaint: Alcohol Withdrawl Stated Complaint: POSSIBLE SYNCOPE Time Seen by Provider: 12/03/19 16:54 Primary Care Provider: RACQUEL DUKES MD [Primary Care Provider] - Follow up as needed Notes: Patient wants help quitting his alcohol addiction. I greeted and performed a rapid initial assessment of this patient. Comprehensive ED assessment and evaluation of the patient, analysis of test results and completion of the medical decision making process will be conducted by additional ED providers. TRAVEL OUTSIDE OF THE [place] IN LAST 30 DAYS: No - Related Data Allergies/Adverse Reactions: No Known Allergies Allergy (Verified 12/03/19 16:48) Past Medical History - Social History Chew tobacco use (# tins/day): No Frequency of alcohol use: Heavy Drug Abuse: None - Past Medical History Cardiac Medical History: Reports: Hx Hypertension Pulmonary Medical History: Reports: Hx Asthma, Hx Bronchitis, Hx COPD Neurological Medical History: Reports: Hx Migraine, Hx Seizures - With hypoglycemia and alcohol withdrawal GI Medical History: Reports: Hx Gastroesophageal Reflux Disease, Hx Hiatal Hernia - hernia Musculoskeltal Medical History: Reports Hx Arthritis - Back, bigg knees, Reports Hx Musculoskeletal Trauma Psychiatric Medical History: Reports: Hx Anxiety, Hx Depression Past Surgical History: Reports: Hx Abdominal Surgery - hernia, Hx Herniorrhaphy - Right inguinal, Hx Inguinal Hernia - right - Immunizations Immunizations up to date: Yes Hx Diphtheria, Pertussis, Tetanus Vaccination: Yes - 2011 Physical Exam - Vital signs Vitals: Temp Pulse Resp BP Pulse Ox 98.2 F 114 H 16 131/81 H 96 12/03/19 16:01 12/03/19 16:01 12/03/19 16:01 12/03/19 16:01 12/03/19 16:01 Course - Vital Signs Vital signs: Temp Pulse Resp BP Pulse Ox 98.2 F 114 H 16 131/81 H 96 12/03/19 16:48 12/03/19 16:01 12/03/19 16:01 12/03/19 16:01 12/03/19 16:01 Doctor's Discharge - Discharge Referrals: RACQUEL DUKES MD [Primary Care Provider] - Follow up as needed
[2019-12-03 17:32] LABS: ABSOLUTE EOSINOPHILS # (AUTO) 0.4 10^3/uL (0.0-0.6); ABSOLUTE LYMPHOCYTES (AUTO) 1.7 10^3/uL (0.5-4.7); ABSOLUTE MONOCYTES (AUTO) 0.6 10^3/uL (0.1-1.4); ABSOLUTE NEUT (AUTO) 2.8 10^3/uL (1.7-8.2); BASOPHILS % (AUTO) 0.4 % (0-2); EOSINOPHILS % (AUTO) 7.5 % (0-6); HEMATOCRIT 36.8 % (37.9-51.0); HEMOGLOBIN 12.8 g/dL (13.5-17.0); LYMPHOCYTES % (AUTO) 30.5 % (13-45); MEAN CORPUSCULAR HEMOGLOBIN 32.5 pg (27.0-33.4); MEAN CORPUSCULAR HGB CONC 34.8 g/dL (32.0-36.0); MEAN CORPUSCULAR VOLUME 93 fl (80-97); MONOCYTES % (AUTO) 11.2 % (3-13); PLATELET COUNT 261 10^3/uL (150-450); RED BLOOD COUNT 3.95 10^6/uL (4.35-5.55); SEGMENTED NEUTROPHILS % (AUTO) 50.4 % (42-78); TOTAL CELLS COUNTED % (AUTO) 100 %; WHITE BLOOD COUNT 5.5 10^3/uL (4.0-10.5)
[2019-12-03 17:40] LABS: APPEARANCE,URINE CLEAR; BILIRUBIN,URINE NEGATIVE (NEGATIVE); COLOR,URINE COLORLESS; GLUCOSE, URINE NEGATIVE (NEGATIVE); KETONES,URINE NEGATIVE (NEGATIVE); LEUKOCYTE ESTERASE,URINE NEGATIVE (NEGATIVE); NITRITE,URINE NEGATIVE (NEGATIVE); PROTEIN,URINE NEGATIVE (NEGATIVE); URINE SPECIFIC GRAVITY 1.003; UROBILINOGEN,URINE NEGATIVE mg/dL (<2.0)
[2019-12-03 17:49] LABS: ALBUMIN 4.8 g/dL (3.5-5.0); ALKALINE PHOSPHATASE 70 U/L (38-126); ANION GAP 9 (5-19); ASPARTATE AMINO TRANSFERASE 95 U/L (17-59); BILIRUBIN,TOTAL 0.2 mg/dL (0.2-1.3); BLOOD UREA NITROGEN 11 mg/dL (7-20); CALCIUM 9.2 mg/dL (8.4-10.2); CARBON DIOXIDE 27 mmol/L (22-30); CHLORIDE 99 mmol/L (98-107); GLUCOSE 90 mg/dL (75-110); POTASSIUM 4.8 mmol/L (3.6-5.0); TOTAL PROTEIN 7.6 g/dL (6.3-8.2)
[2019-12-03 17:59] LABS: URINE AMPHETAMINES SCREEN NEGATIVE; URINE BARBITURATES SCREEN NEGATIVE; URINE BENZODIAZEPINES SCREEN NEGATIVE; URINE COCAINE SCREEN NEGATIVE; URINE MARIJUANA (THC) SCREEN NEGATIVE; URINE METHADONE SCREEN NEGATIVE; URINE PHENCYCLIDINE SCREEN NEGATIVE
[2019-12-03] MEDS ORDERED: NORMAL SALINE 1000 ML 1,000 ML with POTASSIUM CHLORIDE 20 MEQ, MAGNESIUM SULFATE 8 MEQ,... IV SCH ×5 (18:00)
[2019-12-03] MEDS ORDERED: MVI, ADULT NO.1 WITH VIT K INJ 10 ML VIAL IV ONE (18:31)
[2019-12-03] MEDS ORDERED: THIAMINE HCL INJ 200 MG/2 ML VIAL ONE (18:32)
[2019-12-03] MEDS ORDERED: POTASSI CL 20 MEQ/50 ML RIDER 0 MEQ/0 ML RTUPB IV ONE (18:36)
[2019-12-03] MEDS ORDERED: LORAZEPAM INJ 2 MG/1 ML VIAL IV ONE (20:27)
[2019-12-03] MEDS ORDERED: IPRATROPIUM/ALBUTEROL 0.5-2.5 MG/3 ML AMPUL NEB ONE (20:32)
[2019-12-03] MEDS ORDERED: METHYLPREDNISOLONE INJ 125 MG/2 ML SDV IV ONE (20:32)
--- NOTE | 2019-12-03 20:53 | ER Document Report ---
ED General - General Chief Complaint: Alcohol Withdrawl Stated Complaint: POSSIBLE SYNCOPE Time Seen by Provider: 12/03/19 16:54 Primary Care Provider: RACQUEL DUKES MD [Primary Care Provider] - Follow up as needed TRAVEL OUTSIDE OF THE [place] IN LAST 30 DAYS: No - HPI Notes: Chief complaint: Possible seizure, alcoholism, wheezing, suicidal ideation and homelessness HPI: 34-year-old homeless male well-known to this department from multiple prior visits now presenting with multiple concerns as noted above. Patient says he believes he may have had a seizure earlier today although he is not clear about this. He notes that he continues to drink heavily consuming "as much as I can get". He is undomiciled and says that he is very depressed about his current situation and is thought about suicide. He is considered walking from the car in traffic. Patient has history of reactive airways disease. He is currently on no prescription medication. He smoking in excess of 2 packs of cigarettes per day. He says he has been wheezing a lot the last few days. He denies fever. He denies sputum production. Patient denies hallucinations auditory or visual at this time. He denies any intent to harm anyone else. He denies drug abuse. - Related Data Allergies/Adverse Reactions: No Known Allergies Allergy (Verified 12/03/19 16:48) Past Medical History - General Information source: Patient, [facility] Records - Social History Smoking Status: Current Every Day Smoker Chew tobacco use (# tins/day): No Frequency of alcohol use: Heavy Drug Abuse: None Family History: Reviewed & Not Pertinent, CAD, DM, Hypertension Patient has homicidal ideation: No - Past Medical History Cardiac Medical History: Reports: Hx Hypertension Pulmonary Medical History: Reports: Hx Asthma, Hx Bronchitis, Hx COPD Neurological Medical History: Reports: Hx Migraine, Hx Seizures - With hypoglycemia and alcohol withdrawal GI Medical History: Reports: Hx Gastroesophageal Reflux Disease, Hx Hiatal Hernia - hernia Musculoskeletal Medical History: Reports Hx Arthritis - Back, bigg knees, Reports Hx Musculoskeletal Trauma Psychiatric Medical History: Reports: Hx Anxiety, Hx Depression Past Surgical History: Reports: Hx Abdominal Surgery - hernia, Hx Herniorrhaphy - Right inguinal, Hx Inguinal Hernia - right - Immunizations Immunizations up to date: Yes Hx Diphtheria, Pertussis, Tetanus Vaccination: Yes - 2011 Review of Systems - Review of Systems Notes: Constitutional: Negative for fever. HENT: Negative for sore throat. Eyes: Negative for visual changes. Cardiovascular: Negative for chest pain. Respiratory: As per HPI. Gastrointestinal: Negative for abdominal pain, vomiting or diarrhea. Genitourinary: Negative for dysuria. Musculoskeletal: Negative for back pain. Skin: Negative for rash. Neurological: As per HPI. 10 point ROS negative except as marked above and in HPI. Physical Exam - Vital signs Vitals: Temp Pulse Resp BP Pulse Ox 98.2 F 114 H 16 131/81 H 96 12/03/19 16:01 12/03/19 16:01 12/03/19 16:01 12/03/19 16:01 12/03/19 16:01 - Notes Notes: GENERAL: Slender male approximately stated age appears unkempt and quite dirty. He is awake and alert. SKIN: Good turgor no rashes. HEAD: Normocephalic atraumatic. EYES: PERRLA. EOMI. Conjunctivae and sclerae clear. EARS: CANALS AND TMS CLEAR. NOSE: CLEAR. MOUTH: Moist mucosa. Good dentition. No stridor or edema. No drooling. NECK: Supple. No masses or thyromegaly. No adenopathy. Carotids 2+ without bruits. No JVD. BACK: Symmetrical without tenderness. CHEST: Respirations unlabored. Breath sounds symmetrical with diffuse inspiratory and expiratory wheezes. HEART: Regular rhythm. No murmur gallop or rub. ABDOMEN: Soft nontender without masses, organomegaly or rebound. Bowel sounds normally active. No bruits. GENITALIA: Deferred. EXTREMITIES: No edema. No calf tenderness. Cap refill less than 1.5 seconds. Dorsalis pedis and posterior tibial pulses 3+ and symmetrical. NEUROLOGICAL: GCS 15. Alert and oriented x3. Ataxic gait. Slurred speech. Cranial nerves II through XII intact. Sensorimotor and cerebellar normal. Normal tone. PSYCHIATRIC: Flat affect. Course - Re-evaluation Re-evalutation: 12/03/19 22:02 Patient is quite intoxicated. We are going to give him some IV Ativan to prevent additional seizures. Noncontrast head CT has been requested. His chemistry profile is otherwise unremarkable. CBC is normal. Chest x-ray requested. We will treat him with svitlana lewis and give him some IV Solu-Medrol. I have also ordered an IV banana bag. Because of his expression of suicidal ideation I am going to place him on IVC petition and we will request evaluation by the behavioral health service after he is clinically sober. 12/04/19 00:[address] negative per radiologist. Withdrawal symptoms are well controlled with Ativan at this time. Patient is medically cleared for further evaluation by behavioral team. - Vital Signs Vital signs: Temp Pulse Resp BP Pulse Ox 98.2 F 114 H 16 131/81 H 96 12/03/19 16:48 12/03/19 16:01 12/03/19 16:01 12/03/19 16:01 12/03/19 16:01 - Laboratory Result Diagrams: 12/03/19 17:05 12/03/19 17:05 Laboratory results interpreted by me: 12/03/19 12/03/19 17:05 17:05 RBC 3.95 L Hgb 12.8 L Hct 36.8 L Eos % (Auto) 7.5 H Sodium 134.8 L AST 95 H Discharge - Discharge Clinical Impression: Suicidal ideation, Chronic alcoholism, Alcohol withdrawal syndrome Condition: Stable Disposition: PSYCH HOSP/UNIT Referrals: RACQUEL DUKES MD [Primary Care Provider] - Follow up as needed
--- NOTE | 2019-12-03 20:53 | EKG REPORT ---
SEVERITY:- NORMAL ECG - SINUS RHYTHM : Confirmed by: Linus Malin 03-Dec-2019 20:53:37
--- NOTE | 2019-12-03 21:21 | RADIOLOGY REPORT (SQ) ---
EXAM DESCRIPTION: XR CHEST 1 VIEW COMPLETED DATE/TME: 12/03/2019 20:29 CLINICAL HISTORY: 34 years, Male, wheezing COMPARISON: Prior study from 10/01/2019 NUMBER OF VIEWS: One TECHNIQUE: Single frontal view of the chest was obtained portably LIMITATIONS: None. FINDINGS: Cardiac and mediastinal contours are stable. Lungs are clear. No pleural effusion or pneumothorax. IMPRESSION: No acute disease. copyright 2010 [employer]- All Rights Reserved
[2019-12-03] MEDS ORDERED: THIAMINE HCL 100 MG, FOLIC ACID 1 MG in NORMAL SALINE 250 ML IV ONE (21:52)
[2019-12-03] MEDS ORDERED: MULTIVITAMIN TABLET PO ONE (21:53)
[2019-12-03] MEDS ORDERED: FOLIC ACID INJ 5 MG/1 ML 10 ML VIAL ONE (22:00)
[2019-12-03] MEDS: MAGNESIUM SULFATE/D5W 1 GM/100 ML RTUPB IV SCH (23:36)
--- NOTE | 2019-12-04 00:05 | RADIOLOGY REPORT (SQ) ---
INDICATION: seizure. COMPARISON: April 15, 2018 CORRELATION: None TECHNIQUE: Noncontrast spiral axial CT images were obtained from the skull base to vertex. This exam was performed according to our departmental dose-optimization program, which includes automated exposure control, adjustment of the mA and/or kV according to patient size and/or use of iterative reconstruction techniques. FINDINGS: There is no evidence of acute intracranial hemorrhage, midline shift, mass effect or mass lesion. Raymond-white differentiation is normal. There is no evidence of acute large territory infarct. Ventricles and extracerebral spaces are within normal limits, for age. The visualized paranasal sinuses are grossly clear. The orbits and eyeballs are unremarkable. The mastoid air cells are clear. Skull base and calvarium appear intact. IMPRESSION: Imaging is technically incomplete. [place] is not included in [id number]. No acute intracranial process is identified. The cause of the patient's seizure is not identified on this examination.
[2019-12-04] MEDS: MAGNESIUM SULFATE/D5W 1 GM/100 ML RTUPB IV SCH (00:32)
[2019-12-04] MEDS: LORAZEPAM 1 MG TABLET PO PRN ×2 (03:21→11:26)
[2019-12-04] MEDS ORDERED: LISINOPRIL 10 MG TABLET PO SCH (11:00)
[2019-12-04 11:30] VITALS: BP 131/78
[2019-12-05] MEDS ORDERED: FAMOTIDINE 20 MG TABLET PO SCH (10:00)
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
== END 2019-12-04 13:43 | disposition home or self-care (01) ==
LOC: ER 15:57
DX: R45.851 Suicidal ideations (principal); F10.239 Alcohol dependence with withdrawal, unspecified; Z59.0 Homelessness; J45.909 Unspecified asthma, uncomplicated; F17.210 Nicotine dependence, cigarettes, uncomplicated; I10 Essential (primary) hypertension; J44.9 Chronic obstructive pulmonary disease, unspecified
CPT/HCPCS: 93005; 94640; 99285; 96375; 96365; 96366; 96367; 36415; 80307 ×2; 83690; 85025; 80053; 81001; 71045; 70450; 93010; J3490; J2930; J2060; J3475 ×2; J3411; J7050; J7620

== ENCOUNTER 2019-12-04 17:55 | Emergency (ER) | payer OTHER ==
[2019-12-04 18:15] LABS: ABSOLUTE LYMPHOCYTES (AUTO) 1.6 10^3/uL (0.5-4.7); ABSOLUTE MONOCYTES (AUTO) 2.1 10^3/uL (0.1-1.4); ABSOLUTE NEUT (AUTO) 11.6 10^3/uL (1.7-8.2); BASOPHILS % (AUTO) 0.1 % (0-2); HEMATOCRIT 34.1 % (37.9-51.0); HEMOGLOBIN 11.8 g/dL (13.5-17.0); LYMPHOCYTES % (AUTO) 10.4 % (13-45); MEAN CORPUSCULAR HEMOGLOBIN 32.1 pg (27.0-33.4); MEAN CORPUSCULAR HGB CONC 34.5 g/dL (32.0-36.0); MEAN CORPUSCULAR VOLUME 93 fl (80-97); MONOCYTES % (AUTO) 13.9 % (3-13); PLATELET COUNT 257 10^3/uL (150-450); RED BLOOD COUNT 3.68 10^6/uL (4.35-5.55); SEGMENTED NEUTROPHILS % (AUTO) 75.6 % (42-78); TOTAL CELLS COUNTED % (AUTO) 100 %
[2019-12-04 18:16] LABS: WHITE BLOOD COUNT 15.3 10^3/uL (4.0-10.5)
[2019-12-04 18:31] LABS: ALBUMIN 4.3 g/dL (3.5-5.0); ALKALINE PHOSPHATASE 60 U/L (38-126); ANION GAP 8 (5-19); ASPARTATE AMINO TRANSFERASE 62 U/L (17-59); BILIRUBIN,TOTAL 0.2 mg/dL (0.2-1.3); BLOOD UREA NITROGEN 18 mg/dL (7-20); CALCIUM 9.3 mg/dL (8.4-10.2); CARBON DIOXIDE 24 mmol/L (22-30); CHLORIDE 95 mmol/L (98-107); GLUCOSE 102 mg/dL (75-110); POTASSIUM 4.3 mmol/L (3.6-5.0); TOTAL PROTEIN 6.9 g/dL (6.3-8.2)
[2019-12-04 19:04] LABS: APPEARANCE,URINE CLEAR; BILIRUBIN,URINE NEGATIVE (NEGATIVE); COLOR,URINE YELLOW; GLUCOSE, URINE 150 mg/dL (NEGATIVE); KETONES,URINE NEGATIVE (NEGATIVE); LEUKOCYTE ESTERASE,URINE NEGATIVE (NEGATIVE); NITRITE,URINE NEGATIVE (NEGATIVE); PROTEIN,URINE NEGATIVE (NEGATIVE); UROBILINOGEN,URINE NEGATIVE mg/dL (<2.0)
--- NOTE | 2019-12-04 19:05 | EKG REPORT ---
SEVERITY:- ABNORMAL ECG - SINUS TACHYCARDIA PROBABLE LEFT VENTRICULAR HYPERTROPHY : Confirmed by: Linus Malin 04-Dec-2019 19:03:08
[2019-12-04] MEDS ORDERED: NORMAL SALINE 1000 ML 1,000 ML IV ONE (19:17)
[2019-12-04] MEDS ORDERED: NICOTINE 21 MG/24 HR PATCH.TD24 TD ONE (19:17)
--- NOTE | 2019-12-04 19:17 | ER Document Report ---
ED General - General Chief Complaint: Abdominal Pain Stated Complaint: ABDOMINAL PAIN Time Seen by Provider: 12/04/19 18:23 Primary Care Provider: RACQUEL DUKES MD [Primary Care Provider] - Follow up as needed TRAVEL OUTSIDE OF THE [place] IN LAST 30 DAYS: No - HPI Notes: Chief complaint: "I need help with alcohol" HPI: 34-year-old male seen by me in this emergency department yesterday for requ est for help with chronic alcoholism and acute alcohol intoxication now returning under similar circumstances. When I saw him yesterday he had reported that he was homeless and stated that he had given up on life and was contemplating the possibility of walking in front of a car in order to commit suicide. He was very intoxicated at the time of that history with alcohol in excess of 270. He stayed here overnight and sobered and when he was seen by the behavioral health team earlier this morning he denied any ongoing suicidal intent. They felt he was stable for referral for outpatient detox and he was discharged. He immediately went out and drank beer and says that he consumed "maybe 8 or 10 cans". He is now back reporting that he wants to go to detox. He denies any suicidal ideation or hallucinations at this time. - Related Data Allergies/Adverse Reactions: No Known Allergies Allergy (Verified 12/03/19 16:48) Past Medical History - General Information source: Patient, [facility] Records - Social History Smoking Status: Current Every Day Smoker Frequency of alcohol use: Heavy Drug Abuse: Prescription drugs Family History: Reviewed & Not Pertinent, CAD, DM, Hypertension Patient has homicidal ideation: No - Past Medical History Cardiac Medical History: Reports: Hx Hypertension Pulmonary Medical History: Reports: Hx Asthma, Hx Bronchitis, Hx COPD Neurological Medical History: Reports: Hx Migraine, Hx Seizures - With hypoglycemia and alcohol withdrawal GI Medical History: Reports: Hx Gastroesophageal Reflux Disease, Hx Hiatal Hernia - hernia Musculoskeletal Medical History: Reports Hx Arthritis - Back, bigg knees, Reports Hx Musculoskeletal Trauma Psychiatric Medical History: Reports: Hx Anxiety, Hx Depression Past Surgical History: Reports: Hx Abdominal Surgery - hernia, Hx Herniorrhaphy - Right inguinal, Hx Inguinal Hernia - right - Immunizations Immunizations up to date: Yes Hx Diphtheria, Pertussis, Tetanus Vaccination: Yes - 2011 Review of Systems - Review of Systems Notes: Constitutional: Negative for fever. HENT: Negative for sore throat. Eyes: Negative for visual changes. Cardiovascular: Negative for chest pain. Respiratory: Negative for shortness of breath. Gastrointestinal: Negative for abdominal pain, vomiting or diarrhea. Genitourinary: Negative for dysuria. Musculoskeletal: Negative for back pain. Skin: Negative for rash. Neurological: Negative for headaches, weakness or numbness. 10 point ROS negative except as marked above and in HPI. Physical Exam - Vital signs Vitals: Temp Resp Pulse Ox 98.6 F 15 100 12/04/19 18:03 12/04/19 18:03 12/04/19 18:03 - Notes Notes: GENERAL: Disheveled male approximately stated age with heavy odor of alcohol and slurred speech. SKIN: Good turgor no rashes. HEAD: Normocephalic atraumatic. EYES: PERRLA. EOMI. Conjunctivae and sclerae clear. EARS: CANALS AND TMS CLEAR. NOSE: CLEAR. MOUTH: Moist mucosa. Poor dentition. No stridor or edema. No drooling. NECK: Supple. No masses or thyromegaly. No adenopathy. Carotids 2+ without bruits. No JVD. BACK: Symmetrical without tenderness. CHEST: Respirations unlabored. Breath sounds clear and symmetrical. HEART: Regular rhythm. No murmur gallop or rub. ABDOMEN: Soft nontender without masses, organomegaly or rebound. Bowel sounds normally active. No bruits. GENITALIA: Deferred. EXTREMITIES: No edema. No calf tenderness. Cap refill less than 1.5 seconds. Dorsalis pedis and posterior tibial pulses 3+ and symmetrical. NEUROLOGICAL: GCS 15. Alert and oriented x3. Ataxic gait. Slurred speech. Cranial nerves II through XII intact. Sensorimotor and cerebellar normal. Normal tone. PSYCHIATRIC: Appropriate affect. Course - Re-evaluation Re-evalutation: 12/04/19 22:32 Patient was seen by the behavioral health team. They offered him the option of going back to [facility] and he expresses interest in doing this. His blood alcohol has been repeated here and is now 144 which is under the limit of 200 sent by [place]. Patient will be discharged at this time to go to [facility]. - Vital Signs Vital signs: Temp Pulse Resp BP Pulse Ox 98.6 F 15 114/60 94 12/04/19 18:03 12/04/19 20:01 12/04/19 20:01 12/04/19 20:01 - Laboratory Result Diagrams: 12/04/19 18:00 12/04/19 18:00 Laboratory results interpreted by me: 12/04/19 12/04/19 12/04/19 18:00 18:00 18:40 WBC 15.3 H D RBC 3.68 L Hgb 11.8 L Hct 34.1 L Lymph % (Auto) 10.4 L [place] % (Auto) 13.9 H Absolute Neuts (auto) 11.6 H Absolute Monos (auto) 2.1 H Sodium 127.4 L Chloride 95 L AST 62 H Creatine Kinase Urine Glucose (UA) 150 H 12/04/19 21:31 WBC RBC Hgb Hct Lymph % (Auto) [place] % (Auto) Absolute Neuts (auto) Absolute Monos (auto) Sodium Chloride AST Creatine Kinase 215 H Urine Glucose (UA) - EKG Interpretation by Me Additional EKG results interpreted by me: 12/04/19 19:22 Twelve-lead EKG from 1809 hrs. is reviewed contemporaneously by me demonstrating a sinus tachycardia with a rate of 109. Intervals are normal. His QRS axis is +66 degrees. He has changes of left ventricular hypertrophy by voltage criteria. There are no acute ST/T wave changes. There is no significant interval change compared with prior tracing of 12/03/2019. Indication for current study: Tachycardia. Discharge - Discharge Clinical Impression: Chronic alcoholism Disposition: HOME, SELF-CARE Additional Instructions: Go to [facility] at this time. Referrals: RACQUEL DUKES MD [Primary Care Provider] - Follow up as needed
[2019-12-04 19:21] LABS: URINE AMPHETAMINES SCREEN NEGATIVE; URINE BARBITURATES SCREEN NEGATIVE; URINE BENZODIAZEPINES SCREEN NEGATIVE; URINE COCAINE SCREEN NEGATIVE; URINE MARIJUANA (THC) SCREEN NEGATIVE; URINE METHADONE SCREEN NEGATIVE; URINE PHENCYCLIDINE SCREEN NEGATIVE
--- NOTE | 2019-12-04 19:27 | ER Document Report ---
Doctor's Note Notes: 12/04/19 18:24 Met with Patient after being advised by nurse he had returned following discharge this morning. Upon contact with Patient, he indicated "I need help." When asked what that meant Patient stated,"detox." Patient advised he left [facility] this morning and did not follow up with [facility] as scheduled and would now like to go their facility for Detox. Advised Patient I was unsure whether he would be able to go since he missed his scheduled appointment earlier today and whether there was bed availability. Patient then stated, "well I'm suicidal." Advised Patient that using suicidal statements in an effort to manipulate staff to give him what he wants or to get his way because he feels bad, is not effec tive or advantageous to his cause. Patient was advised he was not suicidal this morning when he was discharged and it did not enter this particular conversation until he was advised he needed to participate in his road to sobriety. Discussed with Patient at length that sobriety required a change of thought processes by him first, and not necessarily when he was intoxicated and feeling poorly. Advised him that when the alcohol wears off, he needs to make the decision of whether he wants to continue the cycle of misery, i.e. drink,drunk, fall down, ambulance, pain, I want help, get resources, sober up, get alcohol, drink, repeat........ Advised the patient there was no magic pill, no magic detox, no magic answer except the choice to choose change and that was all his. Patient was alert and oriented to person, place, time, and circumstance. Mood was intoxicated and dysthymic, affect was mood congruent. He initially endorsed suicidal ideation but recalled his suicidal statements when asked about the intention of of his statements. He denied homicidal ideation, intent or plan. There was no evidence of psychosis or delusions. Thought processes were logical, organized, and linear. Conversational speech was notable for slurring, normal tone and rate. Intellectual abilities were estimated within the average range. Attention and concentration was within normal limits while insight, judgment, and impulse control was impaired. Clinical Impression Intoxicated Manipulative Dependent Homeless Chronic Alcoholism with no desire for change Impression /Plan: Patient is cleared from acute psychiatric services. Patient was discharged this morning with an appointment to [facility] for Detox. Patient chose to go drink instead of following through with the help he requested. He denied suicidal ideation then, presented it again this time, but retracted it when called out on it. Patient was given psycho-education on sobriety and what it takes, choices, etc. to obtain sobriety and encouraged to make that choice. Advised that if he truly wants help, to take the help resources provided this morning and use them. ED Physician in agreement with recommendation and disposition, particularly about discharge upon reaching legal sobriety limit and request of no benzo's etc. if not medically needed.
[2019-12-04 23:39] VITALS: BP 124/85
== END 2019-12-04 23:01 | disposition home or self-care (01) ==
LOC: ER 17:55
DX: F10.20 Alcohol dependence, uncomplicated (principal); R10.9 Unspecified abdominal pain; F17.200 Nicotine dependence, unspecified, uncomplicated; I10 Essential (primary) hypertension; J44.9 Chronic obstructive pulmonary disease, unspecified
CPT/HCPCS: 93005; 99284; 96360; 36415; 80307 ×2; 82550; 83690; 85025; 80053; 81001; 93010; J7030

== ENCOUNTER 2019-12-18 22:25 | Emergency (ER) | payer OTHER ==
[2019-12-18 23:19] LABS: ABSOLUTE BASOPHILS # (AUTO) 0.1 10^3/uL (0.0-0.2); ABSOLUTE EOSINOPHILS # (AUTO) 0.7 10^3/uL (0.0-0.6); ABSOLUTE LYMPHOCYTES (AUTO) 2.6 10^3/uL (0.5-4.7); ABSOLUTE MONOCYTES (AUTO) 0.7 10^3/uL (0.1-1.4); BASOPHILS % (AUTO) 0.7 % (0-2); HEMOGLOBIN 12.2 g/dL (13.5-17.0); LYMPHOCYTES % (AUTO) 28.2 % (13-45); MEAN CORPUSCULAR HEMOGLOBIN 32.7 pg (27.0-33.4); MEAN CORPUSCULAR VOLUME 94 fl (80-97); MONOCYTES % (AUTO) 8.2 % (3-13); PLATELET COUNT 276 10^3/uL (150-450); RED BLOOD COUNT 3.74 10^6/uL (4.35-5.55); RED CELL DISTRIBUTION WIDTH 13.3 % (11.5-14.0); SEGMENTED NEUTROPHILS % (AUTO) 54.9 % (42-78); TOTAL CELLS COUNTED % (AUTO) 100 %; WHITE BLOOD COUNT 9.1 10^3/uL (4.0-10.5)
[2019-12-18] MEDS ORDERED: IPRATROPIUM/ALBUTEROL 0.5-2.5 MG/3 ML AMPUL NEB ONE (23:21)
[2019-12-18] MEDS ORDERED: ONDANSETRON HCL INJ/PF 4 MG/2 ML SDV IV ONE (23:22)
--- NOTE | 2019-12-18 23:23 | ER Document Report ---
ED General - General Chief Complaint: ETOH Abuse Stated Complaint: ABDOMINAL PAIN POST ETOH CONSUMPTION Time Seen by Provider: 12/18/19 23:12 Primary Care Provider: RACQUEL DUKES MD [Primary Care Provider] - Follow up as needed Notes: Patient is a 34-year-old male that comes emergency department with chief compl aint of shortness of breath, wheezing, coughing which has been worsening for the past several days. He also states he has abdominal pain, occasionally vomits, pain is worse on the left side of the abdomen. He denies fevers, denies specific chest pain but he does report heartburn. He states "the alcohol does not help". He states he drinks 12 beers today. He reports a history of chronic alcoholism and dependence with shaking withdrawals if he does not drink. He also has a history of asthma, smokes, has a history of hiatal hernia, GERD, and right inguinal hernia repair. He is also treated for hypertension. Patient states he currently lives with a friend. He states he follows with primary care doctor Sha. TRAVEL OUTSIDE OF THE [place] IN LAST 30 DAYS: No - Related Data Allergies/Adverse Reactions: No Known Allergies Allergy (Verified 12/18/19 22:51) Home Medications: will update based on recently filled medications listed in [facility] Past Medical History - General Information source: Patient - Social History Smoking Status: Current Every Day Smoker Frequency of alcohol use: Heavy Lives with: Friend Family History: Reviewed & Not Pertinent, CAD, DM, Hypertension Patient has homicidal ideation: No - Past Medical History Cardiac Medical History: Reports: Hx Hypertension Pulmonary Medical History: Reports: Hx Asthma, Hx Bronchitis, Hx COPD Neurological Medical History: Reports: Hx Migraine, Hx Seizures - With hypoglycemia and alcohol withdrawal GI Medical History: Reports: Hx Gastroesophageal Reflux Disease, Hx Hiatal Hernia - hernia Musculoskeletal Medical History: Reports Hx Arthritis - Back, bigg knees, Reports Hx Musculoskeletal Trauma Psychiatric Medical History: Reports: Hx Anxiety, Hx Depression Past Surgical History: Reports: Hx Abdominal Surgery - hernia, Hx Herniorrhaphy - Right inguinal, Hx Inguinal Hernia - right - Immunizations Immunizations up to date: Yes Hx Diphtheria, Pertussis, Tetanus Vaccination: Yes - 2011 Review of Systems - Review of Systems Constitutional: No symptoms reported EENT: No symptoms reported Cardiovascular: No symptoms reported Respiratory: See HPI Gastrointestinal: See HPI Genitourinary: No symptoms reported Male Genitourinary: No symptoms reported Musculoskeletal: No symptoms reported Skin: No symptoms reported Hematologic/Lymphatic: No symptoms reported Neurological/Psychological: See HPI Physical Exam - Vital signs Vitals: Temp 97.7 F 12/18/19 22:30 - Notes Notes: GENERAL: Patient is awake and cooperative but clearly intoxicated, is unsteady, he is slurring his words, he is very flushed HEAD: Normocephalic, atraumatic. EYES: Pupils equal, round, and reactive to light. Extraocular movements intact. ENT: Oral mucosa moist, tongue midline. Oropharynx unremarkable. Airway patent. NECK: Full range of motion. Supple. Trachea midline. No lymphadenopathy. LUNGS: Expiratory wheezes throughout, however no tachypnea, labored breathing, and patient speaks in full sentences. HEART: Regular rate and rhythm. No murmur ABDOMEN: Soft, non-tender. Non-distended. EXTREMITIES: Moves all 4 extremities spontaneously. No edema, normal radial and dorsalis pedis pulses bilaterally. No cyanosis. BACK: no cervical, thoracic, lumbar midline tenderness. No saddle anesthesia, normal distal neurovascular exam. Moves all extremities in full range of motion. NEUROLOGICAL: Alert and oriented x3. Normal speech. Cranial nerves II through XII grossly intact. Strength 5/5 in all extremities. PSYCH: Normal affect, normal mood. SKIN: Flushed Course - Re-evaluation Re-evalutation: Patient clearly intoxicated and is telling me he is intoxicated. Protocol had already been placed for the patient and his resulting, patient's blood alcohol noted to be 297. Drug screen unremarkable. CBC without significant change from prior, chemistry nonspecific with unremarkable glucose and sodium. Patient complaining of upper abdominal pain but lipase is unremarkable. Patient was given Zofran, tolerated p.o. without any difficulty, I suspect gastritis, his abdomen is soft and completely benign with no noted tenderness. Very low suspicion of acute abdomen. Chest x-ray reviewed and shows no acute findings. 12/19/19 05:00 Patient has no wheezing now on reevaluation's after treatments. He has no vomiting, he has no abdominal pain, chest pain, or any complaints. Patient s tates he feels much better and he is ready to go home. Unfortunately patient does not have a ride still to go with his friend, patient will have to be rechecked because of his elevated alcohol level to make sure that he is stable for discharge, he will be discharged when he is sober, patient states appreciation. Patient denies SI or HI, denies any other complaints, states he will be ready to go when he is medically cleared. - Vital Signs Vital signs: Temp Pulse Resp BP Pulse Ox 97.7 F 74 10 L 102/63 100 12/18/19 23:01 12/18/19 23:01 12/18/19 23:01 12/18/19 23:01 12/18/19 23:01 - Laboratory Result Diagrams: 12/18/19 22:58 12/18/19 22:58 Laboratory results interpreted by me: 12/18/19 12/18/19 22:58 22:58 RBC 3.74 L Hgb 12.2 L Hct 35.0 L Eos % (Auto) 8.0 H Absolute Eos (auto) 0.7 H Sodium 132.9 L Total Bilirubin 0.1 L AST 90 H Salicylates < 1.0 L Acetaminophen < 10 L - EKG Interpretation by Me Additional EKG results interpreted by me: EKG shows sinus rhythm at a rate of 79, QTc 436, normal axis, no T wave inversions or significant changes in consecutive leads Discharge - Discharge Clinical Impression: Wheezing, Tobacco abuse Alcohol intoxication Qualifiers: Complication of substance-induced condition: with unspecified complication Qualified Code(s): F10.929 - Alcohol use, unspecified with intoxication, un specified Alcohol dependence Qualifiers: Substance use status: unspecified alcohol-induced disorder Qualified Code(s): F10.29 - Alcohol dependence with unspecified alcohol-induced disorder Vomiting Qualifiers: Vomiting type: unspecified Vomiting Intractability: non-intractable Nausea presence: with nausea Qualified Code(s): R11.2 - Nausea with vomiting, unspecified Condition: Stable Disposition: HOME, SELF-CARE Additional Instructions: You have been treated with steroids, use your home inhalers, follow-up with [facility]. Stop smoking. Take [id number] Pepcid for gastritis, reduce alcohol use and follow-up with the detox center listed below. Return for any concerning or worsening symptoms or something is not right. [facility] [address] [place] [address] [place] [address] Hours: Open 24 hours Referrals: RACQUEL DUKES MD [Primary Care Provider] - Follow up as needed
[2019-12-18 23:31] LABS: ALBUMIN 4.2 g/dL (3.5-5.0); ALCOHOL 296 mg/dL (NONE DETECTED); ALKALINE PHOSPHATASE 72 U/L (38-126); ANION GAP 6 (5-19); ASPARTATE AMINO TRANSFERASE 90 U/L (17-59); BILIRUBIN,TOTAL 0.1 mg/dL (0.2-1.3); BLOOD UREA NITROGEN 8 mg/dL (7-20); CALCIUM 8.5 mg/dL (8.4-10.2); CARBON DIOXIDE 25 mmol/L (22-30); CHLORIDE 102 mmol/L (98-107); GLUCOSE 92 mg/dL (75-110); POTASSIUM 4.2 mmol/L (3.6-5.0); TOTAL PROTEIN 6.8 g/dL (6.3-8.2)
[2019-12-18 23:32] LABS: ACETAMINOPHEN < 10 ug/mL (10-30); SALICYLATE < 1.0 mg/dL (2.0-20.0)
[2019-12-18 23:51] LABS: APPEARANCE,URINE CLEAR; BILIRUBIN,URINE NEGATIVE (NEGATIVE); COLOR,URINE STRAW; GLUCOSE, URINE NEGATIVE (NEGATIVE); KETONES,URINE NEGATIVE (NEGATIVE); LEUKOCYTE ESTERASE,URINE NEGATIVE (NEGATIVE); NITRITE,URINE NEGATIVE (NEGATIVE); PROTEIN,URINE NEGATIVE (NEGATIVE); URINE SPECIFIC GRAVITY 1.003; UROBILINOGEN,URINE NEGATIVE mg/dL (<2.0)
[2019-12-19 00:03] LABS: URINE AMPHETAMINES SCREEN NEGATIVE; URINE BARBITURATES SCREEN NEGATIVE; URINE BENZODIAZEPINES SCREEN NEGATIVE; URINE COCAINE SCREEN NEGATIVE; URINE MARIJUANA (THC) SCREEN NEGATIVE; URINE METHADONE SCREEN NEGATIVE; URINE PHENCYCLIDINE SCREEN NEGATIVE
--- NOTE | 2019-12-19 00:34 | RADIOLOGY REPORT (SQ) ---
EXAM DESCRIPTION: XR CHEST 1 VIEW COMPLETED DATE/TME: 12/18/2019 23:21 CLINICAL INDICATION: 34-year-old male with shortness of breath and cough. TECHNIQUE: Single view, AP portable chest was obtained. COMPARISON: 12/03/2019. FINDINGS: Unremarkable cardiac and mediastinal silhouette. Heart size is normal. Lungs are clear without focal opacity, pneumothorax or pleural effusions. The visualized bones are within normal limits. IMPRESSION: No acute cardiopulmonary abnormalities.
[2019-12-19] MEDS ORDERED: DEXAMETHASONE SOD PHOS INJ 10 MG/1 ML VIAL IV ONE (05:16)
--- NOTE | 2019-12-19 06:12 | EKG REPORT ---
SEVERITY:- NORMAL ECG - SINUS RHYTHM : Confirmed by: Alejandro Love MD 19-Dec-2019 06:11:46
[2019-12-19 10:07] VITALS: BP 111/70
== END 2019-12-19 10:14 | disposition home or self-care (01) ==
LOC: ER 22:25
DX: F10.229 Alcohol dependence with intoxication, unspecified (principal); R11.2 Nausea with vomiting, unspecified; R06.2 Wheezing; R10.9 Unspecified abdominal pain; R06.02 Shortness of breath; R05 Cough; F17.200 Nicotine dependence, unspecified, uncomplicated; Z79.899 Other long term (current) drug therapy; I10 Essential (primary) hypertension; J44.9 Chronic obstructive pulmonary disease, unspecified
CPT/HCPCS: 93005; 94640; 99284; 96374; 96375; 36415; 80307 ×4; 83690; 85025; 80053; 81001; 71045; 93010; J2405; J1100; J7620

== ENCOUNTER 2020-01-05 20:41 | Emergency (ER) | payer OTHER ==
[2020-01-05] MEDS ORDERED: PANTOPRAZOLE SODIUM 40 MG VIAL IV ONE (21:45)
[2020-01-05] MEDS ORDERED: NORMAL SALINE 1000 ML 1,000 ML IV ONE (21:46)
[2020-01-05] MEDS ORDERED: ONDANSETRON HCL INJ/PF 4 MG/2 ML SDV IV ONE (21:46)
[2020-01-05] MEDS ORDERED: PANTOPRAZOLE SODIUM 40 MG VIAL IV PRN (21:47)
--- NOTE | 2020-01-05 21:50 | ER Document Report ---
ED General - General Chief Complaint: Cough Stated Complaint: COUGH/CONGESTION/DIARRHEA/FEVER Primary Care Provider: RACQUEL DUKES MD [Primary Care Provider] - Follow up as needed Mode of Arrival: Ambulatory Information source: Patient Notes: Patient is a 34-year-old male presenting to the emergency department with multiple complaints. Patient states he has had diarrhea for about a month but recently it is uncontrolled. Patient also complains of cough shortness of breath and sore throat. On further discussion the patient states that he has been vomiting blood. Patient reports tobacco abuse and alcohol abuse. Patient denies travel history trauma history but does state that several people at work are ill with a cough. 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 TRAVEL OUTSIDE OF THE [place] IN LAST 30 DAYS: No - HPI Onset: Other Onset/Duration: Gradual, Worse Quality of pain: Achy, Throbbing Severity: Mild Pain Level: 2 Associated symptoms: Nonproductive cough, Diarrhea, Nausea, Vomiting, Shortness of breath Exacerbated by: Denies Relieved by: Denies Similar symptoms previously: Yes Recently seen / treated by doctor: No - Related Data Allergies/Adverse Reactions: No Known Allergies Allergy (Verified 12/18/19 22:51) Past Medical History - General Information source: Patient - Social History Smoking Status: Current Every Day Smoker Cigarette use (# per day): Yes Chew tobacco use (# tins/day): No Smoking Education Provided: Yes Frequency of alcohol use: Occasional Drug Abuse: None Family History: Reviewed & Not Pertinent, CAD, DM, Hypertension Patient has suicidal ideation: No Patient has homicidal ideation: No - Past Medical History Cardiac Medical History: Reports: Hx Hypertension Pulmonary Medical History: Reports: Hx Asthma, Hx Bronchitis, Hx COPD Neurological Medical History: Reports: Hx Migraine, Hx Seizures - With hypoglycemia and alcohol withdrawal GI Medical History: Reports: Hx Gastroesophageal Reflux Disease, Hx Hiatal Hernia - hernia Musculoskeletal Medical History: Reports Hx Arthritis - Back, bigg knees, Reports Hx Musculoskeletal Trauma Psychiatric Medical History: Reports: Hx Anxiety, Hx Depression Past Surgical History: Reports: Hx Abdominal Surgery - hernia, Hx Herniorrhaphy - Right inguinal, Hx Inguinal Hernia - right - Immunizations Immunizations up to date: Yes Hx Diphtheria, Pertussis, Tetanus Vaccination: Yes - 2011 Review of Systems - Review of Systems Notes: REVIEW OF SYSTEMS: CONSTITUTIONAL : Denies fever, chills, or sweats. Denies recent illness. EENT: Denies eye, ear, throat, or mouth pain or symptoms. Denies nasal or sinus congestion. CARDIOVASCULAR: No chest pain RESPIRATORY: Per HPI GASTROINTESTINAL: Per HPI GENITOURINARY: Denies difficulty urinating, painful urination, burning, frequency, or blood in urine. MUSCULOSKELETAL: Denies neck or back pain or joint pain or swelling. SKIN: Denies rash or skin lesions. HEMATOLOGIC : Denies easy bruising or bleeding. NEUROLOGICAL: Denies altered mental status or loss of consciousness. Denies headache. Denies weakness or paralysis or loss of use of either side. Denies problems with gait or speech. Denies sensory or motor loss. PSYCHIATRIC: Denies suicidal or homicidal ideations 10 Systems are negative unless otherwise specified above Physical Exam - Vital signs Vitals: Temp Pulse Resp BP Pulse Ox 98.3 F 75 18 107/65 98 01/05/20 22:55 01/05/20 22:55 01/05/20 22:55 01/05/20 22:55 01/05/20 22:55 - Notes Notes: PHYSICAL EXAMINATION: GENERAL: Well-appearing, well-nourished and in no acute distress. HEAD: Atraumatic, normocephalic. EYES: Pupils equal round and reactive to light, extraocular movements intact, sclera anicteric, conjunctiva are normal. ENT: nares patent, oropharynx clear without exudates. Moist mucous membranes. NECK: Normal range of motion, supple without lymphadenopathy, no appreciable JVD LUNGS: Lungs clear to auscultation bilaterally and equal. No wheezes rales or rhonchi. HEART: Regular rate and rhythm without murmurs ABDOMEN: Soft, tender diffusely, normal bowel sounds. No guarding, no rebound. No masses appreciated. EXTREMITIES: Active full range of motion, no pitting or edema. No cyanosis. 2+ pulses x4 NEUROLOGICAL: No focal neurological deficits. Moves all extremities spontaneousl y and on command. SKIN: Warm, Dry, and intact. Normal turgor, no rashes or lesions noted. Course - Re-evaluation Re-evalutation: 01/06/20 02:19 Patient has been maintained on a monitoring tech the entire time in the emergency department. The patient has remained stable and actually slept most of the time. Patient did have a bowel movement and on nurse examination there was no blood and it was not black and tarry. The one abnormality is the patient had a low sodium level which may be related to the alcohol abuse however we are repeating a BMP at this time and will make a clinical decision at that time. 01/06/20 03:40 Laboratory repeat study shows normalizing of the patient's sodium level. I believe the hyponatremia is mainly secondary to an increase diuresis from alcohol consumption. The remainder of the patient's labs and radiologic studies demonstrate no significant findings and the patient will be discharged home with outpatient follow-up. Patient states he feels much better and is agreeable with discharge home. Patient has been reevaluated several times while in the emergency department. Patient has remained stable without decompensation. After review of applicable laboratory and/or radiologic results, there are no signs of acute abdomen to include: acute appendicitis, pancreatitis, cholelithia sis or cholecystitis, bowel obstruction or ileus, there are no signs of Aortic Dissection, diverticulitis or diverticulosis, Kidney abnormalities to include urinary tract infection, renal failure or kidney stones or any other acute life-threatening process. At this time I feel the patient is stable for discharge. I have reviewed the laboratory and/or radiologic results with the patient answered all questions. Patient is agreeable with discharge at this time. Patient is recommended to follow-up with primary care provider in the next several days for follow-up. Patient should return to the emergency department for worsening symptoms to include worsening pain, bloody vomitus, bloody diarrhea, inability to tolerate fluids or fever greater than 101 orally. - Vital Signs Vital signs: Temp Pulse Resp BP Pulse Ox 98.4 F 75 17 100/40 L 98 01/05/20 23:49 01/05/20 22:55 01/06/20 02:03 01/06/20 02:03 01/05/20 22:55 - Laboratory Result Diagrams: 01/05/20 23:30 01/06/20 02:45 Laboratory results interpreted by me: 01/05/20 01/05/20 01/06/20 23:30 23:30 02:45 RBC 3.75 L Hgb 12.6 L Hct 34.5 L MCH 33.5 H MCHC 36.4 H Sodium 124.7 L 128.0 L Chloride 92 L BUN 4 L 4 L Glucose 67 L Calcium 8.0 L - Diagnostic Test Radiology reviewed: Reports reviewed Discharge - Discharge Clinical Impression: Hyponatremia, Alcohol abuse Alcohol dependence Qualifiers: Substance use status: unspecified alcohol-induced disorder Qualified Code(s): F10.29 - Alcohol dependence with unspecified alcohol-induced disorder Condition: Stable Disposition: HOME, SELF-CARE Additional Instructions: Alcohol Withdrawal Your symptoms are caused by alcohol withdrawal. After a period of frequent drinking, the brain and body are changed by the alcohol. When you quit or reduce your drinking, the nervous system becomes unstable. Withdrawal symptoms can st art a few hours after your last drink, but sometimes don't begin until a couple of days later. Symptoms can include shakiness, sweating, insomnia, nausea, vomiting, fearfulness, hallucinations, and seizures. In addition to the acute effects of alcohol withdrawal, we often have to deal with the medical effects of alcoholism. These problems often include dehydration, stomach irritation, intestinal bleeding, low blood sugar, liver disease, and pancreas inflammation. Treatment for alcohol withdrawal includes mild sedatives, vitamins, and fluids. You need to be with someone who can help if symptoms become severe. Many patients can withdraw at home. Admission to the hospital or a detox facility may be necessary if withdrawal symptoms are severe and uncontrollable. Abstaining from alcohol is the only effective long-term treatment. If you start drinking again, you will not be able to control yourself after the first drink. Treatment programs are available. In addition, many alcoholics benefit from Alcoholics Anonymous or other support groups available through your counselor or [employer]. [facility]-ANON and ALA-TEEN are support groups for friends and family members of an alcoholic. Go to the emergency room if you develop persistent vomiting, severe abdominal pain, fever, shortness of breath, hallucinations, uncontrollable tremors, or seizures. Hyponatremia You have an abnormally low level of serum sodium, called hyponatremia. Low serum sodium may cause weakness, fatigue, confusion, or even seizures. Usually, low sodium is due to taking diuretics (water pills), combined with drinking too much water. It can also be due to excessive vomiting or diarrhea. If no obvious cause is evident, further evaluation will be necessary. If the hyponatremia results from taking diuretics, it's treated by restricting the amount of water you can drink. If it's due to vomiting and diarrhea, it's treated by drinking liberal amounts of rehydration solution (for example Lytren or Pedialyte). A follow-up blood test is often done to see that the sodium is returning to normal. Call the physician if you have severe weakness, muscle twitching or cramping, palpitations (pounding or irregular heartbeat), confusion, headache, seizures, or any other new or alarming symptoms. Forms: Return to Work Referrals: RACQUEL DUKES MD [Primary Care Provider] - Follow up as needed
--- NOTE | 2020-01-05 22:37 | RADIOLOGY REPORT (SQ) ---
EXAM DESCRIPTION: X-ray, single portable view of the chest CLINICAL HISTORY: 34 years Male, cough sob COMPARISON: Portable view of the chest 12/19/2019 FINDINGS: Lungs: Lungs are clear. No pneumonia or edema. No pneumothorax or pleural effusion. Mediastinum: Cardiac and mediastinal silhouette are normal. Bones: Osseous structures are normal. IMPRESSION: No acute process. No significant interval change.
[2020-01-05 23:51] LABS: ABSOLUTE EOSINOPHILS # (AUTO) 0.3 10^3/uL (0.0-0.6); ABSOLUTE LYMPHOCYTES (AUTO) 2.6 10^3/uL (0.5-4.7); ABSOLUTE MONOCYTES (AUTO) 0.8 10^3/uL (0.1-1.4); ABSOLUTE NEUT (AUTO) 5.2 10^3/uL (1.7-8.2); APPEARANCE,URINE CLEAR; BASOPHILS % (AUTO) 0.5 % (0-2); BILIRUBIN,URINE NEGATIVE (NEGATIVE); COLOR,URINE STRAW; GLUCOSE, URINE NEGATIVE (NEGATIVE); HEMATOCRIT 34.5 % (37.9-51.0); HEMOGLOBIN 12.6 g/dL (13.5-17.0); KETONES,URINE NEGATIVE (NEGATIVE); LEUKOCYTE ESTERASE,URINE NEGATIVE (NEGATIVE); LYMPHOCYTES % (AUTO) 29.7 % (13-45); MEAN CORPUSCULAR HEMOGLOBIN 33.5 pg (27.0-33.4); MEAN CORPUSCULAR HGB CONC 36.4 g/dL (32.0-36.0); MEAN CORPUSCULAR VOLUME 92 fl (80-97); MONOCYTES % (AUTO) 8.5 % (3-13); NITRITE,URINE NEGATIVE (NEGATIVE); PLATELET COUNT 297 10^3/uL (150-450); PROTEIN,URINE NEGATIVE (NEGATIVE); RED BLOOD COUNT 3.75 10^6/uL (4.35-5.55); RED CELL DISTRIBUTION WIDTH 13.4 % (11.5-14.0); SEGMENTED NEUTROPHILS % (AUTO) 58.3 % (42-78); TOTAL CELLS COUNTED % (AUTO) 100 %; URINE SPECIFIC GRAVITY 1.002; UROBILINOGEN,URINE NEGATIVE mg/dL (<2.0); WHITE BLOOD COUNT 8.9 10^3/uL (4.0-10.5)
[2020-01-05] MEDS ORDERED: LORAZEPAM INJ 2 MG/1 ML VIAL IV ONE (23:52)
[2020-01-05 23:57] LABS: ALBUMIN 4.5 g/dL (3.5-5.0); ALCOHOL 265 mg/dL (NONE DETECTED); ALKALINE PHOSPHATASE 75 U/L (38-126); ANION GAP 11 (5-19); ASPARTATE AMINO TRANSFERASE 56 U/L (17-59); BILIRUBIN,TOTAL 0.2 mg/dL (0.2-1.3); BLOOD UREA NITROGEN 4 mg/dL (7-20); CALCIUM 8.9 mg/dL (8.4-10.2); CARBON DIOXIDE 22 mmol/L (22-30); CHLORIDE 92 mmol/L (98-107); POTASSIUM 4.1 mmol/L (3.6-5.0); TOTAL PROTEIN 7.2 g/dL (6.3-8.2)
[2020-01-05 23:58] LABS: GLUCOSE 67 mg/dL (75-110)
[2020-01-06 00:05] LABS: INTERNATIONAL RATION (INR) 0.86; PROTHROMBIN TIME 11.7 SEC (11.4-15.4)
[2020-01-06 00:06] LABS: URINE AMPHETAMINES SCREEN NEGATIVE; URINE BARBITURATES SCREEN NEGATIVE; URINE BENZODIAZEPINES SCREEN NEGATIVE; URINE COCAINE SCREEN NEGATIVE; URINE MARIJUANA (THC) SCREEN NEGATIVE; URINE METHADONE SCREEN NEGATIVE; URINE PHENCYCLIDINE SCREEN NEGATIVE
--- NOTE | 2020-01-06 02:09 | RADIOLOGY REPORT (SQ) ---
EXAM DESCRIPTION: CT ABDOMEN PELVIS WITH IV CONTRAST COMPLETED DATE/TME: 01/06/2020 00:00 CLINICAL HISTORY: cough sob, DIARRHEA X 30 DAYS, HEMATEMESIS.CREAT 0.81 COMPARISON: 10/01/2019 TECHNIQUE: CT of the abdomen and pelvis performed following IV administration of 82 mL of Omnipaque 350. Oral contrast administered FINDINGS: Lung Bases: The visualized lung bases are clear. Bones: No destructive bone lesions identified. Abdomen: Liver: The liver has normal size and density. No intrahepatic biliary dilatation. Gallbladder: No calcified gallstones. Spleen, Pancreas, and Adrenal Glands: The spleen, pancreas, and adrenal glands are unremarkable. Kidneys: No hydronephrosis or obstructing calculus. Nonobstructing inferior pole right nephrolithiasis. Vasculature: The aorta and IVC have normal caliber and position. The portal vein is patent. The proximal visceral and renal arteries are patent. Stomach: The stomach and duodenum have normal course. Other: No free intraperitoneal air. No free fluid or lymphadenopathy. Pelvis: Bladder: Urinary bladder is unremarkable. Bowel: No dilated loops of large or small bowel. Appendix: Normal appendix. Pelvis: Prostate is not enlarged. IMPRESSION: 1. No acute inflammatory or obstructive process identified. 2. Nonobstructing inferior pole right nephrolithiasis. This exam was performed according to our departmental dose-optimization program, which includes automated exposure control, adjustment of the mA and/or kV according to patient size and/or use of iterative reconstruction technique.
[2020-01-06 03:22] LABS: ANION GAP 7 (5-19); BLOOD UREA NITROGEN 4 mg/dL (7-20); CARBON DIOXIDE 22 mmol/L (22-30); CHLORIDE 99 mmol/L (98-107); GLUCOSE 87 mg/dL (75-110); POTASSIUM 3.9 mmol/L (3.6-5.0)
[2020-01-06 04:04] VITALS: BP 108/71
== END 2020-01-06 04:25 | disposition home or self-care (01) ==
LOC: ER 20:41
DX: E87.1 Hypo-osmolality and hyponatremia (principal); F10.29 Alcohol dependence with unspecified alcohol-induced disorder; R05 Cough; R09.81 Nasal congestion; R19.7 Diarrhea, unspecified; R50.9 Fever, unspecified; R06.02 Shortness of breath; J02.9 Acute pharyngitis, unspecified; R11.2 Nausea with vomiting, unspecified; F17.210 Nicotine dependence, cigarettes, uncomplicated; I10 Essential (primary) hypertension; J44.9 Chronic obstructive pulmonary disease, unspecified
CPT/HCPCS: 99284; 96375; 96365; 96366; 36415; 80307 ×2; 83690; 85025; 85610; 80048; 80053; 81001; 71045; 74177; J2060; C9113; J2405; J7030

== ENCOUNTER 2020-01-07 14:00 | Emergency (ER) | payer OTHER ==
[2020-01-07] MEDS ORDERED: AMMONIA INHALANTS 10 AMPUL/BOX IH ONE ×2 (14:13)
[2020-01-07] MEDS ORDERED: IPRATROPIUM/ALBUTEROL 0.5-2.5 MG/3 ML AMPUL NEB ONE (14:59)
[2020-01-07] MEDS ORDERED: METHYLPREDNISOLONE INJ 125 MG/2 ML SDV IV ONE (14:59)
--- NOTE | 2020-01-07 15:03 | ER Document Report ---
ED General - General Chief Complaint: ETOH Abuse Stated Complaint: ETOH Primary Care Provider: RACQUEL DUKES MD [Primary Care Provider] - Follow up as needed Notes: Patient is a 34-year-old white male with a history of alcoholism, COPD, diabetes, hypertension who is a current everyday 1 pack/day smoker who presents to the emergency department the chief complaint of wanting help to detox from alcohol. Patient states he drinks about a 12 pack of beer every single day. 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 Denies using any other drugs. States that he cannot stop drinking, has been drinking since he was 16 years old. Requests assistance. Denies any suicidal or homicidal ideations. No recent travel or known sick contacts. No fevers. TRAVEL OUTSIDE OF THE [place] IN LAST 30 DAYS: No - Related Data Allergies/Adverse Reactions: No Known Allergies Allergy (Verified 12/18/19 22:51) Past Medical History - Social History Smoking Status: Current Every Day Smoker Family History: Reviewed & Not Pertinent, CAD, DM, Hypertension - Past Medical History Cardiac Medical History: Reports: Hx Hypertension Pulmonary Medical History: Reports: Hx Asthma, Hx Bronchitis, Hx COPD Neurological Medical History: Reports: Hx Migraine, Hx Seizures - With hypoglyc emia and alcohol withdrawal GI Medical History: Reports: Hx Gastroesophageal Reflux Disease, Hx Hiatal Hernia - hernia Musculoskeletal Medical History: Reports Hx Arthritis - Back, bigg knees, Reports Hx Musculoskeletal Trauma Psychiatric Medical History: Reports: Hx Anxiety, Hx Depression Past Surgical History: Reports: Hx Abdominal Surgery - hernia, Hx Herniorrhaphy - Right inguinal, Hx Inguinal Hernia - right - Immunizations Immunizations up to date: Yes Hx Diphtheria, Pertussis, Tetanus Vaccination: Yes - 2011 Review of Systems - Review of Systems Constitutional: denies: Fever EENT: denies: Throat pain Cardiovascular: denies: Chest pain Respiratory: Wheezing Gastrointestinal: denies: Abdominal pain Genitourinary: denies: Burning Male Genitourinary: denies: Penile discharge Musculoskeletal: denies: Back pain Skin: denies: Change in color Hematologic/Lymphatic: denies: Easy bleeding Neurological/Psychological: denies: Headaches Physical Exam - Vital signs Vitals: Temp Pulse Resp BP Pulse Ox 97.8 F 76 16 119/65 100 01/07/20 16:08 01/07/20 16:08 01/07/20 16:08 01/07/20 16:08 01/07/20 16:08 - General General appearance: Appears well, Alert In distress: None - HEENT Head: Normocephalic, Atraumatic Eyes: Normal Conjunctiva: Normal Pupils: PERRL Neck: Supple - Respiratory Respiratory status: No respiratory distress Chest status: Nontender Breath sounds: Normal Chest palpation: Normal - Cardiovascular Rhythm: Regular Heart sounds: Normal auscultation - Abdominal Inspection: Normal Distension: No distension Bowel sounds: Normal Tenderness: Nontender Organomegaly: No organomegaly - Extremities General upper extremity: Normal inspection, Nontender, Normal color, Normal ROM, Normal temperature General lower extremity: Normal inspection, Nontender, Normal color, Normal ROM, Normal temperature, Normal weight bearing. No: Lowell's sign - Neurological Neuro grossly intact: Yes Cognition: Normal, Other - Intoxicated Orientation: AAOx4 Sharla Coma Scale Eye Opening: Spontaneous Sharla Coma Scale Verbal: Oriented Spofford Coma Scale Motor: Obeys Commands Spofford Coma Scale Total: 15 Speech: Normal Motor strength normal: LUE, RUE, LLE, RLE Sensory: Normal - Psychological Associated symptoms: Normal affect, Normal mood - Skin Skin Temperature: Warm Skin Moisture: Dry Skin Color: Normal Course - Re-evaluation Re-evalutation: 01/07/20 23:52 Patient medically cleared, was mildly hyponatremic given 2 L normal saline. His alcohol upon initial drawl was above 200, he will be monitored and evaluated here until below 200 at which point [facility] states that they have a bed open for the patient. He was cleared by psychiatry services. Plan is to redraw his alcohol at 1 AM and if below 200 and the patient still stable he will be transferred to [facility] with the assistance of our staff and their staff. 01/08/20 00:25 Case discussed with my provider, Mary Johnson, who will continue observation of the patient for repeat alcohol and transfer to [facility]. - Vital Signs Vital signs: Temp Pulse Resp BP Pulse Ox 98.4 F 105 H 20 132/77 H 94 01/07/20 22:00 01/07/20 22:00 01/07/20 22:00 01/07/20 22:00 01/07/20 22:00 - Laboratory Result Diagrams: 01/07/20 14:49 01/07/20 14:49 Laboratory results interpreted by me: 01/07/20 01/07/20 14:49 14:49 RBC 3.79 L Hgb 12.4 L Hct 35.1 L Sodium 131.0 L BUN 3 L Creatine Kinase 179 H Salicylates < 1.0 L Acetaminophen < 10 L Serum Alcohol 367 H* Discharge - Discharge Clinical Impression: Alcohol abuse Condition: Stable Disposition: OTHER Instructions: Chronic Alcoholism ([facility]) Referrals: RACQUEL DUKES MD [Primary Care Provider] - Follow up as needed
[2020-01-07 15:09] LABS: ABSOLUTE EOSINOPHILS # (AUTO) 0.3 10^3/uL (0.0-0.6); ABSOLUTE LYMPHOCYTES (AUTO) 1.9 10^3/uL (0.5-4.7); ABSOLUTE MONOCYTES (AUTO) 0.4 10^3/uL (0.1-1.4); BASOPHILS % (AUTO) 0.8 % (0-2); EOSINOPHILS % (AUTO) 5.5 % (0-6); HEMATOCRIT 35.1 % (37.9-51.0); HEMOGLOBIN 12.4 g/dL (13.5-17.0); LYMPHOCYTES % (AUTO) 42.6 % (13-45); MEAN CORPUSCULAR HEMOGLOBIN 32.6 pg (27.0-33.4); MEAN CORPUSCULAR HGB CONC 35.2 g/dL (32.0-36.0); MEAN CORPUSCULAR VOLUME 93 fl (80-97); MONOCYTES % (AUTO) 8.1 % (3-13); PLATELET COUNT 276 10^3/uL (150-450); RED BLOOD COUNT 3.79 10^6/uL (4.35-5.55); TOTAL CELLS COUNTED % (AUTO) 100 %; WHITE BLOOD COUNT 4.6 10^3/uL (4.0-10.5)
[2020-01-07] MEDS: NORMAL SALINE 1000 ML 1,000 ML IV PRN ×2 (15:14→16:43)
[2020-01-07 15:27] LABS: APPEARANCE,URINE CLEAR; BILIRUBIN,URINE NEGATIVE (NEGATIVE); COLOR,URINE STRAW; GLUCOSE, URINE NEGATIVE (NEGATIVE); KETONES,URINE NEGATIVE (NEGATIVE); LEUKOCYTE ESTERASE,URINE NEGATIVE (NEGATIVE); NITRITE,URINE NEGATIVE (NEGATIVE); PROTEIN,URINE NEGATIVE (NEGATIVE); URINE SPECIFIC GRAVITY 1.003; UROBILINOGEN,URINE NEGATIVE mg/dL (<2.0)
[2020-01-07 15:34] LABS: ALBUMIN 4.3 g/dL (3.5-5.0); ALKALINE PHOSPHATASE 76 U/L (38-126); ANION GAP 9 (5-19); ASPARTATE AMINO TRANSFERASE 58 U/L (17-59); BILIRUBIN,TOTAL 0.2 mg/dL (0.2-1.3); BLOOD UREA NITROGEN 3 mg/dL (7-20); CALCIUM 8.6 mg/dL (8.4-10.2); CARBON DIOXIDE 24 mmol/L (22-30); CHLORIDE 98 mmol/L (98-107); CREATINE KINASE 179 U/L (55-170); GLUCOSE 102 mg/dL (75-110); POTASSIUM 4.3 mmol/L (3.6-5.0)
[2020-01-07 15:41] LABS: ACETAMINOPHEN < 10 ug/mL (10-30); SALICYLATE < 1.0 mg/dL (2.0-20.0)
[2020-01-07 15:46] LABS: URINE AMPHETAMINES SCREEN NEGATIVE; URINE BARBITURATES SCREEN NEGATIVE; URINE COCAINE SCREEN NEGATIVE; URINE MARIJUANA (THC) SCREEN NEGATIVE; URINE METHADONE SCREEN NEGATIVE; URINE PHENCYCLIDINE SCREEN NEGATIVE
[2020-01-07 15:47] LABS: URINE BENZODIAZEPINES SCREEN NEGATIVE
--- NOTE | 2020-01-07 15:53 | RADIOLOGY REPORT (SQ) ---
EXAM DESCRIPTION: CHEST SINGLE VIEW IMAGES COMPLETED DATE/TIME: 01/07/2020 3:39 pm REASON FOR STUDY: wheezing COMPARISON: Chest radiographs 01/05/2020 EXAM PARAMETERS: NUMBER OF VIEWS: One view. TECHNIQUE: Single frontal radiographic view of the chest acquired. RADIATION DOSE: NA LIMITATIONS: None. FINDINGS: LUNGS AND PLEURA: No opacities, masses or pneumothorax. No pleural effusion. MEDIASTINUM AND HILAR STRUCTURES: No masses. Contour normal. HEART AND VASCULAR STRUCTURES: Heart normal in size. Normal vasculature. BONES: No acute findings. HARDWARE: None in the chest. OTHER: No other significant finding. IMPRESSION: NO ACUTE RADIOGRAPHIC FINDING IN THE CHEST. TECHNICAL DOCUMENTATION: JOB ID: [id number] 2010 [employer]- All Rights Reserved Reading location - IP/workstation name: [email or web address]
[2020-01-07 16:03] LABS: ALCOHOL 367 mg/dL (NONE DETECTED)
[2020-01-07] MEDS ORDERED: THIAMINE HCL 100 MG TABLET PO ONE (16:13)
--- NOTE | 2020-01-07 16:18 | EKG REPORT ---
SEVERITY:- ABNORMAL ECG - SINUS RHYTHM PROBABLE LEFT VENTRICULAR HYPERTROPHY ST ELEV, PROBABLE NORMAL EARLY REPOL PATTERN : Confirmed by: Alejandro Love MD 07-Jan-2020 16:16:48
[2020-01-07] MEDS: MAGNESIUM SULFATE/D5W 1 GM/100 ML RTUPB IV SCH ×2 (16:33→17:52)
[2020-01-07 16:43] LABS: PHOSPHORUS 3.4 mg/dL (2.5-4.5)
--- NOTE | 2020-01-07 18:12 | PSYCHOLOGICAL NOTE ---
Psych Note - Psych Note Date seen by psych provider: 01/07/20 Time seen by psych provider: 16:25 Psych Note: Reason for Consult: Detox Patient reports he would like assistance in detox. He confirms he is currently under the influence and states that he is sad because nobody wants to be around him anymore because of his drinking. Clinician reminded patient to the importance of following through with recommendations to achieve sobriety. Patient was alert and oriented to person, place, time, and circumstance. Mood and affect are blunted; patient is currently intoxicated (BAL 367). He denied suicidal and homicidal ideation, intent or plan. There was no evidence of psychosis or delusions. Thought processes were logical, organized, and linear. Conversational speech was notable for slurring, normal tone and rate. Intellectual abilities were estimated within the average range. Attention, concentration, insight, judgment, and impulse control was impaired. Clinical Impression Intoxicated Chronic Alcoholism with no desire for change-Patient was discharged the morning of 12/04/2019 with an appointment to [facility] for Detox; he did not follow up with voluntary placement. He was seen in [facility] ED 11/27/2019 where he endorsed desire for detox and Behavioral Health team assisted by coordinating with [facility] for voluntary inpatient placement; he did not follow through with voluntary placement. Chart review for 12/04/2019 visit Clinical impression: intoxicated Manipulative- upon discharge (12/04/2019) stated suicidal ideation when did not receive services he requested Dependent Homeless Chronic Alcoholism with no desire for change Impression /Plan: Patient is cleared from acute psychiatric services. Patient was given psycho-education on sobriety and what it takes, choices, etc. to obtain sobriety and encouraged to make that choice. Unfortunately, the patient has a history of not following through with detox assistance once discharged from [facility] ED. At this time, the patient has been provided resource information and is encouraged to follow up with substance abuse treatment. Dr. Aaron was consulted on the care and management of this patient; attending physician is in agreement with recommendations and disposition.
[2020-01-07] MEDS ORDERED: DIAZEPAM 5 MG TABLET PO ONE (22:35)
[2020-01-07] MEDS ORDERED: LORAZEPAM INJ 2 MG/1 ML VIAL IV ONE (22:35)
[2020-01-08 03:49] VITALS: BP 152/90
== END 2020-01-08 03:49 | disposition other institution (70) ==
LOC: ER 14:00
DX: F10.10 Alcohol abuse, uncomplicated (principal); E87.1 Hypo-osmolality and hyponatremia; R06.2 Wheezing; J44.9 Chronic obstructive pulmonary disease, unspecified; I10 Essential (primary) hypertension; Y90.8 Blood alcohol level of 240 mg/100 ml or more
CPT/HCPCS: 93005; 94640; 99285; 96361; 96375; 96365; 96366; 36415; 80307 ×4; 82550; 83735; 84100; 85025; 80053; 81001; 71045; 93010; J2930; J2060; J3475; J7030; J3490

== ENCOUNTER 2020-01-08 21:01 | Emergency (ER) | payer OTHER ==
[2020-01-08 23:18] LABS: ALBUMIN 4.3 g/dL (3.5-5.0); ALCOHOL 265 mg/dL (NONE DETECTED); ALKALINE PHOSPHATASE 71 U/L (38-126); ANION GAP 9 (5-19); ASPARTATE AMINO TRANSFERASE 39 U/L (17-59); BILIRUBIN,TOTAL 0.2 mg/dL (0.2-1.3); BLOOD UREA NITROGEN 2 mg/dL (7-20); CALCIUM 8.6 mg/dL (8.4-10.2); CARBON DIOXIDE 26 mmol/L (22-30); CHLORIDE 100 mmol/L (98-107); GLUCOSE 112 mg/dL (75-110); TOTAL PROTEIN 6.9 g/dL (6.3-8.2)
[2020-01-08 23:19] LABS: ACETAMINOPHEN < 10 ug/mL (10-30); SALICYLATE < 1.0 mg/dL (2.0-20.0)
[2020-01-08 23:32] LABS: APPEARANCE,URINE CLEAR; BILIRUBIN,URINE NEGATIVE (NEGATIVE); COLOR,URINE COLORLESS; GLUCOSE, URINE NEGATIVE (NEGATIVE); KETONES,URINE NEGATIVE (NEGATIVE); LEUKOCYTE ESTERASE,URINE NEGATIVE (NEGATIVE); NITRITE,URINE NEGATIVE (NEGATIVE); PROTEIN,URINE NEGATIVE (NEGATIVE); URINE SPECIFIC GRAVITY 1.002; UROBILINOGEN,URINE NEGATIVE mg/dL (<2.0)
--- NOTE | 2020-01-08 23:40 | ER Document Report ---
Entered by ANDRIY PAIGE SCRIBE 01/08/202117 Acting as scribe for:NBA MARTINO IV, MD ED General - General Chief Complaint: Psych Problem Stated Complaint: SUIDICAL IDEATION Primary Care Provider: RACQUEL DUKES MD [Primary Care Provider] - Follow up as needed Mode of Arrival: Medic Information source: Patient, Emergency Med Personnel Notes: This 34 year old male patient with a history of ETOH abuse, anxiety, depression, COPD, and asthma brought in by EMS presents to the ED today with complaints of suicidal ideation. Patient states that he went into a closet and placed a "pillow on my face" as a suicide attempt prior to arrival. He also notes shor tness of breath as well as fever, chills, and nausea for the past x1 week. He admits to ETOH use, taking x5 5 mg tablets of Valium, and doing "2 lines" of cocaine tonight. According to EMS, the patient became unresponsive en route to the ED and became alert with salts. Patient also received 125 mg Solumedrol, x1 DuoNeb treatment, and normal saline. Patient was seen here for ETOH abuse last night and was discharged this morning with instructions to go to [facility] for detox. TRAVEL OUTSIDE OF THE [place] IN LAST 30 DAYS: No - Related Data Allergies/Adverse Reactions: No Known Allergies Allergy (Verified 12/18/19 22:51) Past Medical History - Social History Smoking Status: Current Every Day Smoker Cigarette use (# per day): Yes - 1 ppd Chew tobacco use (# tins/day): No Smoking Education Provided: No Frequency of alcohol use: Heavy Drug Abuse: Cocaine Family History: Reviewed & Not Pertinent, CAD, DM, Hypertension Patient has suicidal ideation: No Patient has homicidal ideation: No - Past Medical History Cardiac Medical History: Reports: Hx Hypertension Pulmonary Medical History: Reports: Hx Asthma, Hx Bronchitis, Hx COPD Neurological Medical History: Reports: Hx Migraine, Hx Seizures - With hypoglycemia and alcohol withdrawal GI Medical History: Reports: Hx Gastroesophageal Reflux Disease, Hx Hiatal Hernia Musculoskeletal Medical History: Reports Hx Arthritis - Back, bigg knees, Reports Hx Musculoskeletal Trauma Psychiatric Medical History: Reports: Hx Anxiety, Hx Depression Past Surgical History: Reports: Hx Inguinal Hernia - right - Immunizations Immunizations up to date: Yes Hx Diphtheria, Pertussis, Tetanus Vaccination: Yes - 2011 Review of Systems - Review of Systems Constitutional: See HPI, Chills, Fever EENT: No symptoms reported Cardiovascular: No symptoms reported Respiratory: See HPI, Short of breath Gastrointestinal: See HPI, Nausea Genitourinary: No symptoms reported Male Genitourinary: No symptoms reported Musculoskeletal: No symptoms reported Skin: No symptoms reported Hematologic/Lymphatic: No symptoms reported Neurological/Psychological: See HPI, Suicidal ideation -: Yes All other systems reviewed and negative Physical Exam - Vital signs Vitals: Resp Pulse Ox 43 H 93 01/08/20 21:05 01/08/20 21:05 - General General appearance: Alert, Other - Disheveled appearance In distress: None - HEENT Head: Normocephalic, Atraumatic Conjunctiva: Injected - Bilaterally Pupils: PERRL - Respiratory Respiratory status: No respiratory distress - on non-rebreather Chest status: Nontender Breath sounds: Wheezing - Expiratory wheezing in the lung bases bilaterally Chest palpation: Normal - Cardiovascular Rhythm: Regular, Tachycardia Heart sounds: Normal auscultation Murmur: No Friction rub: No Gallop: None auscultated - Abdominal Inspection: Normal Distension: No distension Bowel sounds: Normal Tenderness: Nontender - Abdomen soft Organomegaly: No organomegaly - Back Back: Normal, Nontender - Extremities General upper extremity: Normal inspection General lower extremity: Normal inspection - Neurological Neuro grossly intact: Yes - Psychological Associated symptoms: Other - Tremulousness noted to RUE that seems to lisa when asked a complex question - Skin Skin Temperature: Warm Skin Moisture: Dry Skin Color: Normal Course - Re-evaluation Re-evalutation: 01/08/20 23:45 Patient is medically cleared. - Vital Signs Vital signs: Temp Pulse Resp BP Pulse Ox 97.9 F 104 H 15 117/63 95 01/09/20 02:00 01/09/20 02:00 01/09/20 02:00 01/09/20 02:00 01/09/20 02:00 - Laboratory Result Diagrams: 01/08/20 21:06 01/08/20 21:06 Laboratory results interpreted by me: 01/08/20 01/08/20 21:06 21:06 WBC 16.3 H D RBC 3.84 L Hgb 12.1 L Hct 36.0 L Absolute Neuts (auto) 12.4 H Sodium 134.5 L BUN 2 L Glucose 112 H Salicylates < 1.0 L Acetaminophen < 10 L - EKG Interpretation by Me Additional EKG results interpreted by me: 01/09/20 03:34 EKG obtained on 01/08/2020 at 2109 hrs. was interpreted by this MD. Findings: Normal sinus rhythm rate 96, normal axis, P waves proceed QRS complexes, QRS complexes appear narrow, there are no obvious patterns of ST segment elevation or depression present to suggest acute myocardial ischemia or infarction. Impression: Normal sinus rhythm with nonspecific ST segments. Discharge - Discharge Clinical Impression: Suicidal ideation, Involuntary commitment Acute alcohol intoxication Qualifiers: Complication of substance-induced condition: with unspecified complication Qualified Code(s): F10.929 - Alcohol use, unspecified with intoxication, unspecified Condition: Stable Disposition: OTHER Referrals: RACQUEL DUKES MD [Primary Care Provider] - Follow up as needed I personally performed the services described in the documentation, reviewed and edited the documentation which was dictated to the scribe in my presence, and it accurately records my words and actions.
[2020-01-08 23:42] LABS: ABSOLUTE LYMPHOCYTES (AUTO) 2.9 10^3/uL (0.5-4.7); ABSOLUTE NEUT (AUTO) 12.4 10^3/uL (1.7-8.2); BASOPHILS % (AUTO) 0.2 % (0-2); EOSINOPHILS % (AUTO) 0.1 % (0-6); HEMOGLOBIN 12.1 g/dL (13.5-17.0); LYMPHOCYTES % (AUTO) 17.9 % (13-45); MEAN CORPUSCULAR HEMOGLOBIN 31.6 pg (27.0-33.4); MEAN CORPUSCULAR HGB CONC 33.7 g/dL (32.0-36.0); MEAN CORPUSCULAR VOLUME 94 fl (80-97); MONOCYTES % (AUTO) 6.1 % (3-13); PLATELET COUNT 285 10^3/uL (150-450); RED BLOOD COUNT 3.84 10^6/uL (4.35-5.55); RED CELL DISTRIBUTION WIDTH 13.5 % (11.5-14.0); SEGMENTED NEUTROPHILS % (AUTO) 75.7 % (42-78); TOTAL CELLS COUNTED % (AUTO) 100 %; WHITE BLOOD COUNT 16.3 10^3/uL (4.0-10.5)
[2020-01-08 23:49] LABS: URINE AMPHETAMINES SCREEN NEGATIVE; URINE BARBITURATES SCREEN NEGATIVE; URINE BENZODIAZEPINES SCREEN NEGATIVE; URINE MARIJUANA (THC) SCREEN NEGATIVE; URINE METHADONE SCREEN NEGATIVE; URINE PHENCYCLIDINE SCREEN NEGATIVE
[2020-01-08 23:50] LABS: URINE COCAINE SCREEN UNCONFIRMED POSITIVE
--- NOTE | 2020-01-09 06:23 | EKG REPORT ---
SEVERITY:- NORMAL ECG - SINUS RHYTHM : Confirmed by: Alejandro Love MD 09-Jan-2020 06:22:17
[2020-01-09] MEDS ORDERED: DIAZEPAM 5 MG TABLET PO ONE (07:34)
[2020-01-09] MEDS ORDERED: LORAZEPAM INJ 2 MG/1 ML VIAL IM ONE (07:34)
--- NOTE | 2020-01-09 11:54 | PSYCHOLOGICAL NOTE ---
Psych Note - Psych Note Date seen by psych provider: 01/09/20 Time seen by psych provider: 10:35 Psych Note: Impression\plan: Patient is recommended to continue under IVC. Patient has significant alcohol abuse and has requested multiple times for assistance but has not followed through with recommendations. Patient's behaviors have escalated and is now reports attempting to harm himself. At this time there is concern the patient's substance abuse has resulted in his inability to have any insight, judgment, or impulse control to keep himself safe. Dr. Aaron was consulted on the care and management of this patient; attending physician is in agreement with recommendations and disposition.
[2020-01-09] MEDS ORDERED: ONDANSETRON 4 MG TAB.RAPDIS PO ONE (17:39)
--- NOTE | 2020-01-09 17:39 | ER Document Report ---
Doctor's Note Notes: 01/09/20 17:38 Patient's resting comfortably complains of nausea. Would like some nausea medication. Denies any suicidal or homicidal ideation at this time. Aware of placement pending.
[2020-01-09] MEDS ORDERED: LORAZEPAM 1 MG TABLET PO ONE (20:23)
[2020-01-10 07:48] VITALS: BP 132/82
--- NOTE | 2020-01-10 08:35 | ER Document Report ---
Doctor's Note Notes: 01/10/20 08:32 Patient currently denies any suicidal homicidal ideation. Patient is alert and oriented cooperative. Aware of transfer. [employer] officers here to transport patient. EMTALA form completed and given to the nurse. Pain transfer to [facility] addiction unit 01/10/20 08:37 Discharge - Discharge Clinical Impression: Suicidal ideation, Involuntary commitment Acute alcohol intoxication Qualifiers: Complication of substance-induced condition: with unspecified complication Qualified Code(s): F10.929 - Alcohol use, unspecified with intoxication, unspecified Condition: Stable Disposition: OTHER Referrals: RACQUEL DUKES MD [Primary Care Provider] - Follow up as needed
== END 2020-01-10 08:35 | disposition other institution (70) ==
LOC: ER 21:01
DX: R45.851 Suicidal ideations (principal); F10.929 Alcohol use, unspecified with intoxication, unspecified; R11.0 Nausea; R00.0 Tachycardia, unspecified; F17.210 Nicotine dependence, cigarettes, uncomplicated; I10 Essential (primary) hypertension; Z20.828 Contact with and (suspected) exposure to other viral communicable diseases
CPT/HCPCS: 93005; 99285; 36415; 80307 ×4; 85025; 87635; 80053; 81001; 93010; S0119; C9803

== ENCOUNTER 2020-02-04 16:22 | Emergency (ER) | payer OTHER ==
[2020-02-04] MEDS ORDERED: HYDROCODONE/ACETAMINOPHEN 5-325 MG TABLET PO ONE (16:33)
--- NOTE | 2020-02-04 16:37 | ER Document Report ---
HPI - HPI Time Seen by Provider: 02/04/20 16:28 Context: Patient is a 34-year-old male who presents the emergency department with a chief complaint of left ankle pain. Patient states that he was up on a ladder and went to throw a limb from a tree down to the ground and ended up hitting himself in the back of the leg and fell off the roof. Patient states that he fell on his foot and back. Denies any back pain, but has ankle pain. Denies any point tenderness to spine. Denies loss of consciousness. Denies any headache. He is not on any blood thinners. Patient has a history of hypertension. - ROS Systems Reviewed and Negative: Yes All other systems reviewed and negative - CONSTITUTIONAL Constitutional: DENIES: Fever, Chills - NEURO Neurology: DENIES: Headache, Weakness, Vision blurred, Dizzinesss / Vertigo - CARDIOVASCULAR Cardiovascular: DENIES: Chest pain - RESPIRATORY Respiratory: DENIES: Trouble Breathing, Coughing - GASTROINTESTINAL Gastrointestinal: DENIES: Abdominal Pain, Nausea, Patient vomiting - URINARY Urinary: DENIES: Dysuria, Urgency, Frequency - REPRODUCTIVE Reproductive: DENIES: : - MUSCULOSKELETAL Musculoskeletal: REPORTS: Extremity pain - See HPI., Swelling - See HPI.. DENIES: Back Pain, Neck Pain - DERM Skin Color: Normal Skin Problems: None Past Medical History - General Information source: Patient - Social History Smoking Status: Current Every Day Smoker Family History: Reviewed & Not Pertinent, CAD, DM, Hypertension - Past Medical History Cardiac Medical History: Reports: Hx Hypertension Pulmonary Medical History: Reports: Hx Asthma, Hx Bronchitis, Hx COPD Neurological Medical History: Reports: Hx Migraine, Hx Seizures - With hypoglycemia and alcohol withdrawal GI Medical History: Reports: Hx Gastroesophageal Reflux Disease, Hx Hiatal Hernia Musculoskeletal Medical History: Reports Hx Arthritis - Back, bigg knees, Reports Hx Musculoskeletal Trauma Psychiatric Medical History: Reports: Hx Anxiety, Hx Depression Past Surgical History: Reports: Hx Abdominal Surgery - hernia, Hx Herniorrhaphy - Right inguinal, Hx Inguinal Hernia - right - Immunizations Immunizations up to date: Yes Hx Diphtheria, Pertussis, Tetanus Vaccination: Yes - 2011 Vertical Provider Document - CONSTITUTIONAL Agree With Documented VS: Yes Exam Limitations: No Limitations General Appearance: No Apparent Distress - INFECTION CONTROL TRAVEL OUTSIDE OF THE [place] IN LAST 30 DAYS: No - HEENT HEENT: Atraumatic, Normocephalic, PERRLA - RESPIRATORY Respiratory: No Respiratory Distress - CARDIOVASCULAR Cardiovascular: Regular Rate, Regular Rhythm Pulses: Normal: Radial, Posterior tibial, Dorsalis pedis - MUSCULOSKELETAL/EXTREMETIES Musculoskeletal/Extremeties: Tender - Left ankle, Edema - Left ankle, Eccymosis - Left ankle. negative: FROM - Decreased at left ankle - NEURO Level of Consciousness: Awake, Alert, Appropriate Motor/Sensory: No Sensory Deficit - DERM Integumentary: Warm, Dry, No Rash. negative: Laceration Course - Re-evaluation Re-evalutation: 02/04/20 18:[address] Rivera through the sand mixer operator to have him review the films. Patient has calcaneus and talus fractures. Will be placed in a short leg posterior splint. We will have him follow-up with orthopedics on Thursday. He is in agreement with this plan. 02/04/20 19:[address] Rivera, the orthopedic doctor rehabilitation caseworker. He states that usually with talus and calcaneus fractures, they do not do surgery right away. They normally perform surgery a week after the injury due to the swelling he states that if the patient's pain is so severe, he can go to 1 of the trauma centers. I gave the patient the option of going to the trauma center or following up on an outpatient basis. Patient has opted to be treated on an outpatient basis. I instructed him to return if the pain medications are not working for him. - Vital Signs Vital signs: Temp Pulse Resp BP Pulse Ox 98.6 F 80 20 124/67 100 02/04/20 16:26 02/04/20 16:26 02/04/20 16:26 02/04/20 16:26 02/04/20 16:26 Discharge - Discharge Clinical Impression: Talus fracture Qualifiers: Encounter type: initial encounter Fracture type: closed Talus location: unspecified portion of talus Fracture alignment: displaced Laterality: left Qualified Code(s): S92.102A - Unspecified fracture of left talus, initial encounter for closed fracture Calcaneus fracture Qualifiers: Encounter type: initial encounter Calcaneus location: tuberosity Fracture type: closed Fracture morphology: other fracture Fracture alignment: nondisplaced Laterality: left Qualified Code(s): S92.045A - Nondisplaced other fracture of tuberosity of left calcaneus, initial encounter for closed fracture Condition: Stable Disposition: HOME, SELF-CARE Instructions: Use of Crutches ([facility]), Ice & Elevation ([facility]) Additional Instructions: You were seen today in the emergency department for left ankle pain. You have fractures in your ankle. Please rest, elevate, and use your crutches to rest her ankle. Take ibuprofen 600 mg every 6 hours [id number]. Take Tylenol 650 mg every 6 hours also. Only take the Percocet for extreme pain. Follow-up with your primary care provider on Thursday. See if you can get a referral to orthopedics, as the orthopedic doctors here do not do surgery on these types of fractures. Below are the 2 doctors through [facility] that may be able to help you. Dr. South or Dr. Bhandrai [facility] [place] [address] Phone: Orthopedics Prescriptions: Ibuprofen [Ibu] 600 mg PO Q6HP PRN #30 tablet PRN Reason: Oxycodone HCl/Acetaminophen [Percocet 5-325 mg Tablet] 1 - 2 tab PO Q4H PRN #20 tablet PRN Reason: Forms: Return to Work Referrals: RACQUEL DUKES MD [Primary Care Provider] - 02/06/20
--- NOTE | 2020-02-04 17:41 | RADIOLOGY REPORT (SQ) ---
EXAM DESCRIPTION: FOOT LEFT COMPLETE; TIBIA FIBULA LEFT IMAGES COMPLETED DATE/TIME: 02/04/2020 5:02 pm REASON FOR STUDY: fell off ladder; please include ankle too COMPARISON: Left foot x-ray 08/24/2016 NUMBER OF VIEWS: Five views. TECHNIQUE: AP, lateral and oblique radiographic images acquired of the left foot. AP and lateral radiographic images acquired of the left tibia/fibula. LIMITATIONS: None. FINDINGS: MINERALIZATION: Normal. BONES: There is an acute, comminuted, displaced fracture of the calcaneus. There is an acute, displaced fracture at the medial aspect of the talus. No other acute fracture or dislocation is noted at the remainder of the left foot or at the left tibi a/fibula. SOFT TISSUES: There is soft tissue swelling at the ankle and hindfoot. IMPRESSION: Acute, displaced fractures at the left calcaneus and talus with overlying soft tissue sw elling. TECHNICAL DOCUMENTATION: JOB ID: [id number] [place]-[id number] 2010 [employer]- All Rights Reserved Reading location - IP/workstation name: [email or web address]
--- NOTE | 2020-02-04 17:41 | RADIOLOGY REPORT (SQ) ---
EXAM DESCRIPTION: FOOT LEFT COMPLETE; TIBIA FIBULA LEFT IMAGES COMPLETED DATE/TIME: 02/04/2020 5:02 pm REASON FOR STUDY: fell off ladder; please include ankle too COMPARISON: Left foot x-ray 08/24/2016 NUMBER OF VIEWS: Five views. TECHNIQUE: AP, lateral and oblique radiographic images acquired of the left foot. AP and lateral radiographic images acquired of the left tibia/fibula. LIMITATIONS: None. FINDINGS: MINERALIZATION: Normal. BONES: There is an acute, comminuted, displaced fracture of the calcaneus. There is an acute, displaced fracture at the medial aspect of the talus. No other acute fracture or dislocation is noted at the remainder of the left foot or at the left tibi a/fibula. SOFT TISSUES: There is soft tissue swelling at the ankle and hindfoot. IMPRESSION: Acute, displaced fractures at the left calcaneus and talus with overlying soft tissue sw elling. TECHNICAL DOCUMENTATION: JOB ID: [id number] [place]-[id number] 2010 [employer]- All Rights Reserved Reading location - IP/workstation name: [email or web address]
[2020-02-04] MEDS ORDERED: IBUPROFEN 600 MG TABLET PO ONE (18:59)
[2020-02-04] MEDS ORDERED: HYDROMORPHONE HCL INJ/PF 2 MG/ML AMPULE IM ONE (19:15)
[2020-02-04 19:56] VITALS: BP 124/60
== END 2020-02-04 19:52 | disposition home or self-care (01) ==
LOC: ER 16:22
DX: S92.102A Unspecified fracture of left talus, initial encounter for closed fracture (principal); S92.045A Nondisplaced other fracture of tuberosity of left calcaneus, initial encounter for closed fracture; M25.572 Pain in left ankle and joints of left foot; W13.2XXA Fall from, out of or through roof, initial encounter; Y93.H2 Activity, gardening and landscaping; Y92.008 Other place in unspecified non-institutional (private) residence as the place of occurrence of the external cause; I10 Essential (primary) hypertension; F17.200 Nicotine dependence, unspecified, uncomplicated
CPT/HCPCS: 99283; 96372; 73630; 73590; 29515; J1170

== ENCOUNTER 2020-02-08 20:05 | Emergency (ER) | payer OTHER ==
--- NOTE | 2020-02-08 20:23 | ER Document Report ---
ED Respiratory Problem - General Chief Complaint: Breathing Difficulty Stated Complaint: BREATHING PROBLEM Time Seen by Provider: 02/08/20 20:18 Notes: Patient is a 34-year-old male that comes emergency department for chief complaint of cough, chills, body aches, and several episodes of vomiting. Patient was also reporting he has been short of breath and wheezing. He comes by EMS, EMS gave 125 mg of Solu-Medrol, albuterol, Zofran. Patient states he has been tested 3 times now for the coronavirus and has always been negative. He has not had any recorded fevers. He denies any specific abdominal pain or chest pain. He has a history of COPD/asthma, continues to smoke, has a history of alcohol dependence, hiatal hernia, GERD, right inguinal repair, hypertension. Patient also reports that he recently broke his left ankle/foot, he currently has a splint, his follow-up with orthopedics is tomorrow and he is planning on going. He denies recent travel or sick exposures. TRAVEL OUTSIDE OF THE [place] IN LAST 30 DAYS: No - Related Data Allergies/Adverse Reactions: No Known Allergies Allergy (Verified 02/04/20 16:42) Past Medical History - General Information source: Patient - Social History Smoking Status: Current Every Day Smoker Chew tobacco use (# tins/day): No Smoking Education Provided: Yes - <3 min Frequency of alcohol use: Heavy Drug Abuse: None Lives with: Family Family History: Reviewed & Not Pertinent, CAD, DM, Hypertension Patient has homicidal ideation: No - Past Medical History Cardiac Medical History: Reports: Hx Hypertension Pulmonary Medical History: Reports: Hx Asthma, Hx Bronchitis, Hx COPD Neurological Medical History: Reports: Hx Migraine, Hx Seizures - With hypo glycemia and alcohol withdrawal GI Medical History: Reports: Hx Gastroesophageal Reflux Disease, Hx Hiatal Hernia Musculoskeletal Medical History: Reports Hx Arthritis - Back, bigg knees, Reports Hx Musculoskeletal Trauma Psychiatric Medical History: Reports: Hx Anxiety, Hx Depression Past Surgical History: Reports: Hx Abdominal Surgery - hernia, Hx Herniorrhaphy - Right inguinal, Hx Inguinal Hernia - right - Immunizations Immunizations up to date: Yes Hx Diphtheria, Pertussis, Tetanus Vaccination: Yes - 2011 Review of Systems - Review of Systems Constitutional: No symptoms reported EENT: No symptoms reported Cardiovascular: See HPI Respiratory: See HPI Gastrointestinal: See HPI Genitourinary: No symptoms reported Male Genitourinary: No symptoms reported Musculoskeletal: No symptoms reported Skin: No symptoms reported Hematologic/Lymphatic: No symptoms reported Neurological/Psychological: No symptoms reported Physical Exam - Vital signs Vitals: Temp 98.6 F 02/08/20 20:16 - Notes Notes: GENERAL: Alert, interacts well. No acute distress. HEAD: Normocephalic, atraumatic. EYES: Pupils equal, round, and reactive to light. Extraocular movements intact. ENT: Oral mucosa moist, tongue midline. Oropharynx unremarkable. Airway patent NECK: Full range of motion. Supple. Trachea midline. No lymphadenopathy. LUNGS: Clear to auscultation bilaterally, no wheezes, rales, or rhonchi. No respiratory distress. Non-tender chest wall. HEART: Regular rate and rhythm. No murmur ABDOMEN: Minimal generalized tenderness of the upper abdomen, nonspecific, no guarding EXTREMITIES: There is a splint over the left lower extremity, normal capillary refill and sensation of the toes, unremarkable otherwise. BACK: no cervical, thoracic, lumbar midline tenderness. No saddle anesthesia, normal distal neurovascular exam. Moves all extremities in full range of motion. NEUROLOGICAL: Alert and oriented x3. Normal speech. Cranial nerves II through XII grossly intact. Strength 5/5 in all extremities. PSYCH: Normal affect, normal mood. SKIN: [place] complexion, otherwise unremarkable Course - Re-evaluation Re-evalutation: Patient received 500 cc bolus, nausea medication, he is already received steroids and breathing treatments from EMS. On my evaluation cough, wheezing complaints have resolved, lungs clear, patient well-appearing. He has mild generalized tenderness of the upper abdomen. Vital signs unremarkable. Patient does not appear to be significantly intoxicated, he is alert, oriented, conversational, no slurring of speech, no ataxia. EKG unremarkable, chest x-ray unremarkable, CBC and chemistry unremarkable except for hyponatremia at 125.3. Patient already received a fluid bolus at 500 cc. Patient was given p.o. Carafate and Pepcid and did great with this. He has no complaints on reevaluation. Lipase unremarkable. Clinical picture is most consistent with a COPD exacerbation and alcoholic gastritis. I discussed with Dr. Ling. Patient was recently discharged with a lower sodium than this, this appears to be approximately patient's baseline, patient states he has a follow-up appointment with his provider tomorrow, patient was given Decadron IV instead of oral steroids because of his gastritis, advised to stop the ibuprofen he has been taking for his leg, no complications with his leg reported or noted. Discussed follow-up and return precautions. Patient states understanding and agreement. Stable and well-appearing at time of discharge. - Vital Signs Vital signs: Temp Pulse Resp BP Pulse Ox 98.2 F 15 95/51 L 97 02/08/20 23:01 02/08/20 23:01 02/08/20 23:01 02/08/20 23:01 - Laboratory Result Diagrams: 02/08/20 20:33 02/08/20 20:33 Laboratory results interpreted by me: 02/08/20 02/08/20 20:33 20:33 WBC 10.6 H RBC 3.59 L Hgb 11.7 L Hct 32.6 L Sodium 125.3 L Chloride 90 L BUN 3 L - EKG Interpretation by Me Additional EKG results interpreted by me: EKG shows sinus rhythm at a rate of 81, normal axis, no T wave inversions or ST segment changes in consecutive leads. Discharge - Discharge Clinical Impression: Wheezing, Cough, Tobacco abuse Vomiting Qualifiers: Vomiting type: unspecified Vomiting Intractability: non-intractable Nausea presence: with nausea Qualified Code(s): R11.2 - Nausea with vomiting, unspecified Condition: Stable Disposition: HOME, SELF-CARE Additional Instructions: You were treated tonight with steroids and breathing treatments because of a COPD exacerbation. Your work-up does not show any concerning findings except for a low sodium. This needs to be rechecked with primary care. This is most likely because of your alcohol use, recommend that you follow-up with the detox referral listed below. Follow-up with orthopedics tomorrow as discussed. Recommend that you do not take the ibuprofen for pain anymore, this will irritate your stomach, you can take the Phenergan and Carafate for your stomach instead. You can to continue the other medication for pain. Return for any worsening symptoms including uncontrolled vomiting, vomiting blood, fever, difficulty breathing, or any other concerning symptoms. [facility] [address] [place] [id number] Hours: Open 24 hours Prescriptions: Sucralfate [Carafate 1 gm Tablet] 1 gm PO QID #20 tablet Promethazine HCl [Phenergan 25 mg Tablet] 25 mg PO Q6H PRN #15 tablet PRN Reason: Forms: Smoking Cessation Education
[2020-02-08 20:44] LABS: ABSOLUTE BASOPHILS # (AUTO) 0.1 10^3/uL (0.0-0.2); ABSOLUTE EOSINOPHILS # (AUTO) 0.4 10^3/uL (0.0-0.6); ABSOLUTE LYMPHOCYTES (AUTO) 2.4 10^3/uL (0.5-4.7); ABSOLUTE MONOCYTES (AUTO) 1.2 10^3/uL (0.1-1.4); ABSOLUTE NEUT (AUTO) 6.5 10^3/uL (1.7-8.2); BASOPHILS % (AUTO) 0.7 % (0-2); HEMATOCRIT 32.6 % (37.9-51.0); HEMOGLOBIN 11.7 g/dL (13.5-17.0); MEAN CORPUSCULAR HEMOGLOBIN 32.7 pg (27.0-33.4); MEAN CORPUSCULAR HGB CONC 35.9 g/dL (32.0-36.0); MEAN CORPUSCULAR VOLUME 91 fl (80-97); MONOCYTES % (AUTO) 10.8 % (3-13); PLATELET COUNT 376 10^3/uL (150-450); RED BLOOD COUNT 3.59 10^6/uL (4.35-5.55); RED CELL DISTRIBUTION WIDTH 13.1 % (11.5-14.0); SEGMENTED NEUTROPHILS % (AUTO) 61.5 % (42-78); TOTAL CELLS COUNTED % (AUTO) 100 %; WHITE BLOOD COUNT 10.6 10^3/uL (4.0-10.5)
[2020-02-08 21:20] LABS: APPEARANCE,URINE CLEAR; BILIRUBIN,URINE NEGATIVE (NEGATIVE); COLOR,URINE STRAW; GLUCOSE, URINE NEGATIVE (NEGATIVE); KETONES,URINE NEGATIVE (NEGATIVE); LEUKOCYTE ESTERASE,URINE NEGATIVE (NEGATIVE); NITRITE,URINE NEGATIVE (NEGATIVE); PROTEIN,URINE NEGATIVE (NEGATIVE); URINE SPECIFIC GRAVITY 1.003; UROBILINOGEN,URINE NEGATIVE mg/dL (<2.0)
[2020-02-08 21:24] LABS: ALBUMIN 3.9 g/dL (3.5-5.0); ALKALINE PHOSPHATASE 72 U/L (38-126); ANION GAP 11 (5-19); ASPARTATE AMINO TRANSFERASE 33 U/L (17-59); BILIRUBIN,TOTAL 0.2 mg/dL (0.2-1.3); BLOOD UREA NITROGEN 3 mg/dL (7-20); CALCIUM 8.8 mg/dL (8.4-10.2); CARBON DIOXIDE 24 mmol/L (22-30); CHLORIDE 90 mmol/L (98-107); GLUCOSE 106 mg/dL (75-110); TOTAL PROTEIN 6.7 g/dL (6.3-8.2)
--- NOTE | 2020-02-08 21:34 | RADIOLOGY REPORT (SQ) ---
XR CHEST 1 VIEW HISTORY: Productive cough, shortness of breath. COMPARISON: 01/07/2020 FINDINGS: The heart size is within normal limits. There is no pulmonary vascular congestion. No consolidation, pleural effusion, or pneumothorax is seen. The bony structures are preserved. IMPRESSION: No evidence of acute cardiopulmonary disease.
[2020-02-08] MEDS ORDERED: NORMAL SALINE 500 ML IV ONE (21:36)
[2020-02-08] MEDS ORDERED: FAMOTIDINE 20 MG TABLET PO ONE (21:37)
[2020-02-08] MEDS ORDERED: SUCRALFATE 1 GM TABLET PO ONE (21:37)
[2020-02-08] MEDS ORDERED: PROMETHAZINE HCL 25 MG TABLET PO ONE (21:37)
[2020-02-08] MEDS ORDERED: DEXAMETHASONE SOD PHOS INJ 10 MG/1 ML VIAL IV ONE (22:06)
[2020-02-08] MEDS ORDERED: OXYCODONE HCL IR 5 MG TABLET PO ONE (22:06)
[2020-02-08] MEDS ORDERED: DEXAMETHASONE SOD PHOSPHATE INJ 4 MG/1 ML VIAL ONE (22:37)
[2020-02-09 00:21] VITALS: BP 95/51
--- NOTE | 2020-02-09 15:28 | EKG REPORT ---
SEVERITY:- BORDERLINE ECG - SINUS RHYTHM PROBABLE LEFT ATRIAL ABNORMALITY : Confirmed by: Freddie Coates MD 09-Feb-2020 15:27:52
== END 2020-02-08 23:15 | disposition home or self-care (01) ==
LOC: ER 20:05
DX: J44.9 Chronic obstructive pulmonary disease, unspecified (principal); R11.2 Nausea with vomiting, unspecified; R05 Cough; R68.83 Chills (without fever); R06.02 Shortness of breath; R10.811 Right upper quadrant abdominal tenderness; R10.812 Left upper quadrant abdominal tenderness; R10.816 Epigastric abdominal tenderness; I10 Essential (primary) hypertension; F17.200 Nicotine dependence, unspecified, uncomplicated; E87.1 Hypo-osmolality and hyponatremia
CPT/HCPCS: 93005; 99285; 96374; 36415; 83690; 85025; 80053; 81001; 71045; 93010; J7040; J1100

== ENCOUNTER 2020-02-16 21:10 | Emergency (ER) | payer OTHER ==
--- NOTE | 2020-02-16 23:25 | ER Document Report ---
ED Medical Screen (RME) - General Stated Complaint: DETOX Time Seen by Provider: 02/16/20 23:20 Primary Care Provider: RACQUEL DUKES MD [Primary Care Provider] - Follow up as needed Mode of Arrival: Ambulatory Information source: Patient Notes: 34-year-old male patient presents emergency department multiple complaints today. #1 is that patient drinks a 12 pack of beer per day, he states he wants help with detox. He last drank just prior to arrival. He is also complaining of pain to his left ankle. He states he had a recent ankle fracture, states that he was transferred to a trauma center for this. They placed him in a cast. Yesterday he states he twisted his ankle and he believes he may have injured it further. It is gone, cooperative, no acute distress noted. No evidence of tremor or obvious alcohol withdrawal symptoms. I have greeted and performed a rapid initial assessment of this patient. A comprehensive ED assessment and evaluation of the patient, analysis of test results and completion of the medical decision making process will be conducted by additional ED providers. I have specifically instructed the patient or family members with the patient to immediately return to any nursing staff should anything change in the patient's condition or with their chief complaint. TRAVEL OUTSIDE OF THE [place] IN LAST 30 DAYS: No - Related Data Allergies/Adverse Reactions: No Known Allergies Allergy (Verified 02/04/20 16:42) Past Medical History - Past Medical History Cardiac Medical History: Reports: Hx Hypertension Pulmonary Medical History: Reports: Hx Asthma, Hx Bronchitis, Hx COPD Neurological Medical History: Reports: Hx Migraine, Hx Seizures - With hypoglycemia and alcohol withdrawal GI Medical History: Reports: Hx Gastroesophageal Reflux Disease, Hx Hiatal Hernia Musculoskeltal Medical History: Reports Hx Arthritis - Back, bigg knees, Reports Hx Musculoskeletal Trauma Psychiatric Medical History: Reports: Hx Anxiety, Hx Depression Past Surgical History: Reports: Hx Abdominal Surgery - hernia, Hx Herniorrhaphy - Right inguinal, Hx Inguinal Hernia - right - Immunizations Immunizations up to date: Yes Hx Diphtheria, Pertussis, Tetanus Vaccination: Yes - 2011 Physical Exam - Vital signs Vitals: Temp Pulse Resp BP Pulse Ox 98.2 F 109 H 14 145/80 H 98 02/16/20 21:35 02/16/20 21:35 02/16/20 21:35 02/16/20 21:35 02/16/20 21:35 Course - Vital Signs Vital signs: Temp Pulse Resp BP Pulse Ox 98.2 F 109 H 14 145/80 H 98 02/16/20 21:35 02/16/20 21:35 02/16/20 21:35 02/16/20 21:35 02/16/20 21:35 - Laboratory Result Diagrams: 02/16/20 23:55 02/16/20 23:55 Laboratory results interpreted by me: 02/16/20 02/16/20 23:55 23:55 RBC 4.21 L Hgb 13.3 L Plt Count 477 H Sodium 135.0 L BUN 6 L Doctor's Discharge - Discharge Referrals: RACQUEL DUKES MD [Primary Care Provider] - Follow up as needed
[2020-02-17 00:22] LABS: ALBUMIN 4.9 g/dL (3.5-5.0); ALCOHOL 175 mg/dL (NONE DETECTED); ALKALINE PHOSPHATASE 86 U/L (38-126); ANION GAP 12 (5-19); ASPARTATE AMINO TRANSFERASE 29 U/L (17-59); BILIRUBIN,TOTAL 0.2 mg/dL (0.2-1.3); BLOOD UREA NITROGEN 6 mg/dL (7-20); CALCIUM 9.4 mg/dL (8.4-10.2); CARBON DIOXIDE 25 mmol/L (22-30); CHLORIDE 98 mmol/L (98-107); GLUCOSE 105 mg/dL (75-110); POTASSIUM 4.1 mmol/L (3.6-5.0); TOTAL PROTEIN 7.9 g/dL (6.3-8.2)
[2020-02-17 00:26] LABS: ABSOLUTE BASOPHILS # (AUTO) 0.1 10^3/uL (0.0-0.2); ABSOLUTE EOSINOPHILS # (AUTO) 0.5 10^3/uL (0.0-0.6); ABSOLUTE LYMPHOCYTES (AUTO) 2.4 10^3/uL (0.5-4.7); ABSOLUTE MONOCYTES (AUTO) 0.9 10^3/uL (0.1-1.4); ABSOLUTE NEUT (AUTO) 6.6 10^3/uL (1.7-8.2); BASOPHILS % (AUTO) 1.1 % (0-2); EOSINOPHILS % (AUTO) 4.7 % (0-6); HEMATOCRIT 38.7 % (37.9-51.0); HEMOGLOBIN 13.3 g/dL (13.5-17.0); MEAN CORPUSCULAR HEMOGLOBIN 31.7 pg (27.0-33.4); MEAN CORPUSCULAR HGB CONC 34.5 g/dL (32.0-36.0); MEAN CORPUSCULAR VOLUME 92 fl (80-97); MONOCYTES % (AUTO) 8.3 % (3-13); PLATELET COUNT 477 10^3/uL (150-450); RED BLOOD COUNT 4.21 10^6/uL (4.35-5.55); RED CELL DISTRIBUTION WIDTH 13.4 % (11.5-14.0); SEGMENTED NEUTROPHILS % (AUTO) 62.9 % (42-78); TOTAL CELLS COUNTED % (AUTO) 100 %; WHITE BLOOD COUNT 10.4 10^3/uL (4.0-10.5)
--- NOTE | 2020-02-17 01:55 | RADIOLOGY REPORT (SQ) ---
EXAM: X-ray ankle three or more views, left CLINICAL DATA: 34-year-old male with left ankle pain, status post closed reduction TECHNICAL DATA: Three x-ray views of the left ankle were performed on 02/17/2020 at 1:32 AM. COMPARISONS: 02/04/2020 FINDINGS: Since the previous examination there has been interval placement of a fiberglass cast. There has been satisfactory closed reduction of the calcaneus and talus. The ankle joint is intact. No lytic or sclerotic bone lesions are identified. There are no degenerative changes or arthritic changes identified. Bone mineralization is normal. IMPRESSION: Satisfactory closed reduction of the previously described fractures involving the calcaneus and talus utilizing a fiberglass cast.
--- NOTE | 2020-02-17 09:00 | ER Document Report ---
ED Substance Abuse / Acc. OD - General Chief Complaint: Ankle Pain Stated Complaint: DETOX Time Seen by Provider: 02/16/20 23:20 Primary Care Provider: RACQUEL DUKES MD [Primary Care Provider] - Follow up as needed Mode of Arrival: Ambulatory Information source: Patient Notes: Patient presents stating that he has a history of left ankle fracture and he janice his ankle recently and was concerned that he may have done something to reinjure his ankle. Patient also states that he typically drinks a 12 pack of beer a day and is wanting to go to detox for his alcoholism. Patient denies any suicidal or homicidal ideation. Patient does report drinking yesterday. TRAVEL OUTSIDE OF THE [place] IN LAST 30 DAYS: No - HPI Patient complains to provider of: Alcohol abuse Onset: Yesterday Pain Level: 2 Similar symptoms previously: Yes Recently seen / treated by doctor: No - Related Data Allergies/Adverse Reactions: No Known Allergies Allergy (Verified 02/04/20 16:42) Home Medications: robaxin, lisinopril, amilodipine, atenolol Past Medical History - General Information source: Patient - Social History Smoking Status: Current Every Day Smoker Frequency of alcohol use: 12 pk of beer Occupation: [employer] Family History: Reviewed & Not Pertinent, CAD, DM, Hypertension Patient has homicidal ideation: No - Past Medical History Cardiac Medical History: Reports: Hx Hypertension Pulmonary Medical History: Reports: Hx Asthma, Hx Bronchitis, Hx COPD Neurological Medical History: Reports: Hx Migraine, Hx Seizures - With hypoglycemia and alcohol withdrawal GI Medical History: Reports: Hx Gastroesophageal Reflux Disease, Hx Hiatal Hernia Musculoskeletal Medical History: Reports Hx Arthritis - Back, bigg knees, Reports Hx Musculoskeletal Trauma Psychiatric Medical History: Reports: Hx Anxiety, Hx Depression Past Surgical History: Reports: Hx Abdominal Surgery - hernia, Hx Herniorrhaphy - Right inguinal, Hx Inguinal Hernia - right - Immunizations Immunizations up to date: Yes Hx Diphtheria, Pertussis, Tetanus Vaccination: Yes - 2011 Review of Systems - Review of Systems Constitutional: No symptoms reported. denies: Fever EENT: No symptoms reported Cardiovascular: No symptoms reported. denies: Chest pain Respiratory: No symptoms reported Gastrointestinal: No symptoms reported. denies: Abdominal pain, Nausea, Vomiting Genitourinary: No symptoms reported Male Genitourinary: No symptoms reported Musculoskeletal: Joint pain - Left ankle pain Skin: No symptoms reported Hematologic/Lymphatic: No symptoms reported Neurological/Psychological: denies: Homicidal ideation, Suicidal ideation Physical Exam - Vital signs Vitals: Temp Pulse Resp BP Pulse Ox 98.2 F 109 H 14 145/80 H 98 02/16/20 21:35 02/16/20 21:35 02/16/20 21:35 02/16/20 21:35 02/16/20 21:35 - General General appearance: Appears well, Alert In distress: None - HEENT Head: Normocephalic, Atraumatic Eyes: Normal Conjunctiva: Normal Nasal: Normal Mouth/Lips: Normal Mucous membranes: Normal - Respiratory Respiratory status: No respiratory distress Chest status: Nontender Breath sounds: Normal. No: Rales, Rhonchi, Stridor, Wheezing Chest palpation: Normal - Cardiovascular Rhythm: Regular Heart sounds: S1 appreciated, S2 appreciated - Back Back: Normal - Extremities General upper extremity: Normal inspection, Normal strength General lower extremity: Normal strength, Other - Hard cast to left lower extremity good cap refill to toes - Neurological Neuro grossly intact: Yes Cognition: Normal Sharla Coma Scale Eye Opening: Spontaneous [place] Coma Scale Verbal: Oriented [place] Coma Scale Motor: Obeys Commands Sharla Coma Scale Total: 15 - Psychological Associated symptoms: Normal affect, Normal mood - Skin Skin Temperature: Warm Skin Moisture: Dry Skin Color: Normal Course - Re-evaluation Re-evalutation: 02/17/20 08:51 Call placed to [facility] as patient is seeking voluntary detox. [facility] concerned about the fact that patient does have crutches and a cast in place, they will contact the facility director to see if patient can be accepted. 02/17/20 09:17 Patient clinically sober at this time and has capacity. Spoke with Bindu at the [facility] and he did agree to accept patient. Advised patient to present informing him that he will be able to use his crutches and they will provide him with a walker upon arrival. - Vital Signs Vital signs: Temp Pulse Resp BP Pulse Ox 98.7 F 92 18 125/67 99 02/17/20 09:16 02/17/20 09:16 02/17/20 09:16 02/17/20 09:16 02/17/20 09:16 - Laboratory Result Diagrams: 02/16/20 23:55 02/16/20 23:55 Laboratory results interpreted by me: 02/16/20 02/16/20 23:55 23:55 RBC 4.21 L Hgb 13.3 L Plt Count 477 H Sodium 135.0 L BUN 6 L 02/17/20 18:31 Labs- All tests 24 hr 02/16/20 02/16/20 23:55 23:55 WBC 10.4 RBC 4.21 L Hgb 13.3 L Hct 38.7 MCV 92 MCH 31.7 MCHC 34.5 RDW 13.4 Plt Count 477 H Lymph % (Auto) 23.0 [place] % (Auto) 8.3 Eos % (Auto) 4.7 Baso % (Auto) 1.1 Absolute Neuts (auto) 6.6 Absolute Lymphs (auto) 2.4 Absolute Monos (auto) 0.9 Absolute Eos (auto) 0.5 Absolute Basos (auto) 0.1 Seg Neutrophils % 62.9 Sodium 135.0 L Potassium 4.1 Chloride 98 Carbon Dioxide 25 Anion Gap 12 BUN 6 L Creatinine 0.69 Est GFR ( Amer) > 60 Est GFR (MDRD) Non-Af > 60 Glucose 105 Calcium 9.4 Total Bilirubin 0.2 Direct Bilirubin 0.0 Neonat Total Bilirubin Not Reportable Neonat Direct Bilirubin Not Reportable Neonat Indirect Bili Not Reportable AST 29 ALT 15 Alkaline Phosphatase 86 Total Protein 7.9 Albumin 4.9 Serum Alcohol 175 - Diagnostic Test Radiology reviewed: Image reviewed, Reports reviewed Discharge - Discharge Clinical Impression: Alcohol abuse Left ankle pain Qualifiers: Chronicity: unspecified Qualified Code(s): M25.572 - Pain in left ankle and joints of left foot Condition: Stable Disposition: HOME, SELF-CARE Instructions: Chronic Alcoholism ([facility]) Additional Instructions: Return immediately for any new or worsening symptoms Followup with directly with the [place] facility for treatment Referrals: RACQUEL DUKES MD [Primary Care Provider] - Follow up as needed
[2020-02-17 09:17] VITALS: BP 125/67
== END 2020-02-17 09:34 | disposition home or self-care (01) ==
LOC: ER 21:10
DX: S92.102D Unspecified fracture of left talus, subsequent encounter for fracture with routine healing (principal); S92.002D Unspecified fracture of left calcaneus, subsequent encounter for fracture with routine healing; W13.2XXD Fall from, out of or through roof, subsequent encounter; F10.20 Alcohol dependence, uncomplicated; F17.200 Nicotine dependence, unspecified, uncomplicated; I10 Essential (primary) hypertension; J44.9 Chronic obstructive pulmonary disease, unspecified; Z79.899 Other long term (current) drug therapy
CPT/HCPCS: 36415; 80053; 80307; 85025; 99284